=== PATIENT | female | born 1935 | race Caucasian/White ===

== ENCOUNTER 2019-06-18 17:17 | Emergency (ER) | payer OTHER, MEDICAID ==
[~2019-06-18] VITALS: Ht 157.5 cm; Wt 73.5 kg
[2019-06-18 17:20] VITALS: BP_SYST 131
[2019-06-18] MEDS ORDERED: HALOPERIDOL LACTATE 5 MG/ML VIAL IM ONE ×2 (17:45→21:30)
[2019-06-18] MEDS ORDERED: LORazepam 2 MG/ML VIAL IM ONE (17:45)
[2019-06-18] MEDS ORDERED: DIPHENHYDRAMINE INJ 50 MG/ML VIAL IM ONE (17:45)
[2019-06-18 22:19] LABS: BASOPHILS # (AUTO) 0.1 K/uL (0.0-0.2); BASOPHILS % (AUTO) 0.8 % (0.0-2.0); EOSINOPHILS # (AUTO) 0.2 K/uL (0.0-0.4); EOSINOPHILS % (AUTO) 1.9 % (0.0-4.0); HEMATOCRIT 32.3 % (36-48); HEMOGLOBIN 11.2 g/dL (12.0-16.0); LYMPHOCYTES # (AUTO) 2.6 K/uL (1.0-5.5); LYMPHOCYTES % (AUTO) 31.6 % (20.5-51.5); MEAN CORPUSCULAR HEMOGLOBIN 32 pg (27-31); MEAN CORPUSCULAR HGB CONC 35 % (32-36); MEAN CORPUSCULAR VOLUME 92 fL (79.0-98.0); MONOCYTES # (AUTO) 0.8 K/uL (0.0-1.0); MONOCYTES % (AUTO) 9.9 % (1.7-9.3); NEUTROPHILS # (AUTO) 4.7 K/uL (1.8-7.7); NEUTROPHILS % (AUTO) 55.8 % (40.0-70.0); PLATELET COUNT (AUTO) 223 K/uL (130-430); RED CELL DISTRIBUTION WIDTH 13.2 % (9.0-15.0); WHITE BLOOD COUNT (AUTO) 8.4 K/uL (4.8-10.8)
[2019-06-18 22:35] LABS: ANION GAP 9 (5-15); CHLORIDE 98 mmol/L (98-107); GLUCOSE 187 mg/dL (70-99); POTASSIUM 3.8 mmol/L (3.5-5.1); SODIUM SERUM 132 mmol/L (136-145); UREA NITROGEN, BLOOD 14 mg/dL (8-21)
[2019-06-18 22:41] LABS: ALANINE AMINOTRANSFERASE 12 U/L (12-78); ALBUMIN 3.5 g/dL (3.4-4.8); ASPARTATE AMINOTRANSFERASE 19 U/L (10-37); TOTAL BILIRUBIN 0.5 mg/dL (0.0-1.0)
[2019-06-18 23:40] VITALS: BP_SYST 122
[2019-06-19 15:20] LABS: CHOLESTEROL 167 mg/dL (<200); HDL CHOLESTEROL 42 mg/dL (>55); LDL CHOLESTEROL 107 mg/dL (<100); TRIGLYCERIDES 72 mg/dL (30-150)
== END 2019-06-18 23:41 ==
LOC: SED 17:17
DX: F29 Unspecified psychosis not due to a substance or known physiological condition (principal); F41.9 Anxiety disorder, unspecified; R45.6 Violent behavior; R03.0 Elevated blood-pressure reading, without diagnosis of hypertension; E11.9 Type 2 diabetes mellitus without complications; F03.90 Unspecified dementia, unspecified severity, without behavioral disturbance, psychotic disturbance, mood disturbance, and anxiety; E03.9 Hypothyroidism, unspecified; K21.9 Gastro-esophageal reflux disease without esophagitis
CPT/HCPCS: 36415; 80053; 80061; 83036; 85025; 96372; 99285; J1200; J1630; J2060

== ENCOUNTER 2021-11-27 19:22 | Inpatient (IN) | payer OTHER, MEDICAID, SELFPAY ==
[~2021-11-27] VITALS: Ht 157.5 cm; Wt 67.1 kg
[2021-11-27 19:26] VITALS: BP_SYST 107
[2021-11-27] MEDS ORDERED: NACL 0.9% 1,000 ML IV ONE (19:45)
[2021-11-27 20:10] LABS: EOSINOPHILS # (AUTO) 0.3 K/uL (0.0-0.4); HEMOGLOBIN 9.6 g/dL (12.0-16.0)
[2021-11-27 20:14] LABS: BASOPHILS % (AUTO) 0.5 % (0.0-2.0); EOSINOPHILS % (AUTO) 2.7 % (0.0-4.0); HEMATOCRIT 27.9 % (36-48); LYMPHOCYTES # (AUTO) 2.5 K/uL (1.0-5.5); LYMPHOCYTES % (AUTO) 24.3 % (20.5-51.5); MEAN CORPUSCULAR HEMOGLOBIN 32 pg (27-31); MEAN CORPUSCULAR HGB CONC 34 % (32-36); MEAN CORPUSCULAR VOLUME 92 fL (79.0-98.0); NEUTROPHILS # (AUTO) 6.5 K/uL (1.8-7.7); NEUTROPHILS % (AUTO) 62.5 % (40.0-70.0); PLATELET COUNT (AUTO) 338 K/uL (130-430); RED BLOOD CELL COUNT(AUTO) 3.03 MIL/uL (4.2-6.2); RED CELL DISTRIBUTION WIDTH 14.4 % (9.0-15.0); WHITE BLOOD COUNT (AUTO) 10.4 K/uL (4.8-10.8)
[2021-11-27 20:16] LABS: ANION GAP 14 (5-15); CALCIUM 8.3 mg/dL (8.4-11.0); CHLORIDE 104 mmol/L (98-107); GLUCOSE 238 mg/dL (70-99); POTASSIUM 4.2 mmol/L (3.5-5.1); SODIUM SERUM 135 mmol/L (136-145); UREA NITROGEN, BLOOD 37 mg/dL (8-21)
[2021-11-27 20:19] LABS: BILIRUBIN,URINE NEGATIVE (NEGATIVE); BLOOD, URINE 1+ (NEGATIVE); CLARITY/URINE CLOUDY (CLEAR); COLOR,URINE YELLOW (YELLOW); GLUCOSE,URINE NEGATIVE (NEGATIVE); KETONES,URINE NEGATIVE (NEGATIVE); LEUKOCYTE ESTERASE ,URINE 3+ (NEGATIVE); NITRITE, URINE POSITIVE (NEGATIVE); PH,URINE 7.5 (5.0-8.0); PROTEIN URINE 2+ (NEGATIVE); UROBILINOGEN,URINE 0.2 (0.2-1.0)
[2021-11-27 20:25] LABS: ALANINE AMINOTRANSFERASE 18 U/L (12-78); ALBUMIN 2.8 g/dL (3.4-4.8); ASPARTATE AMINOTRANSFERASE 15 U/L (10-37); TOTAL BILIRUBIN 0.1 mg/dL (0.0-1.0)
[2021-11-27 20:28] LABS: BACTERIA,URINE MANY /HPF (None Seen); WBC,URINE >100 /HPF (0-3)
[2021-11-27 20:29] LABS: MUCUS,URINE 2+ /LPF (None Seen)
[2021-11-27] MEDS ORDERED: cefTRIAXone 1 GM IVPB PREMIX 50 ML IV ONE (21:00)
[2021-11-27] MEDS: NACL 0.9% 1,000 ML IV SCH (22:43)
[2021-11-28] VITALS (23 sets, daily range): BP systolic 79–133
[2021-11-28] MEDS: levalbuterol HCL 0.63 MG/3 ML VIAL.NEB INH SCH ×4 (00:13→19:40)
[2021-11-28] MEDS ORDERED: PIPERACILLIN/TAZOBACTAM 2.25 GM VIAL IV ONE ×2 (01:15→05:43)
[2021-11-28] MEDS: PIPERACILLIN/TAZO 2.25G/DEX-IS 50 ML IV SCH ×4 (01:19→17:22)
[2021-11-28] MEDS ORDERED: NACL 0.9% 1,000 ML IV ONE ×2 (01:45→08:00)
[2021-11-28] MEDS: NACL 0.9% 1,000 ML IV SCH ×2 (03:34→08:49)
[2021-11-28] MEDS: INSULIN REGULAR, HUMAN 100 UNITS/ML, 10 ML VIAL (humuLIN R) SUBCUT PRN ×2 (06:10→17:23)
[2021-11-28 06:22] LABS: BASOPHILS % (AUTO) 0.4 % (0.0-2.0); EOSINOPHILS % (AUTO) 0.3 % (0.0-4.0); HEMATOCRIT 23.2 % (36-48); HEMOGLOBIN 7.8 g/dL (12.0-16.0); LYMPHOCYTES # (AUTO) 0.8 K/uL (1.0-5.5); LYMPHOCYTES % (AUTO) 9.5 % (20.5-51.5); MEAN CORPUSCULAR HEMOGLOBIN 32 pg (27-31); MEAN CORPUSCULAR HGB CONC 34 % (32-36); MEAN CORPUSCULAR VOLUME 94 fL (79.0-98.0); MONOCYTES # (AUTO) 0.8 K/uL (0.0-1.0); MONOCYTES % (AUTO) 8.7 % (1.7-9.3); NEUTROPHILS # (AUTO) 7.1 K/uL (1.8-7.7); NEUTROPHILS % (AUTO) 81.1 % (40.0-70.0); PLATELET COUNT (AUTO) 250 K/uL (130-430); RED BLOOD CELL COUNT(AUTO) 2.47 MIL/uL (4.2-6.2); RED CELL DISTRIBUTION WIDTH 14.8 % (9.0-15.0); WHITE BLOOD COUNT (AUTO) 8.7 K/uL (4.8-10.8)
[2021-11-28 06:53] LABS: ALANINE AMINOTRANSFERASE 19 U/L (12-78); ALBUMIN 2.3 g/dL (3.4-4.8); ANION GAP 16 (5-15); ASPARTATE AMINOTRANSFERASE 19 U/L (10-37); CALCIUM 7.6 mg/dL (8.4-11.0); CHLORIDE 106 mmol/L (98-107); CREATININE 1.74 mg/dL (0.55-1.30); GLUCOSE 268 mg/dL (70-99); POTASSIUM 4.2 mmol/L (3.5-5.1); SODIUM SERUM 138 mmol/L (136-145); TOTAL BILIRUBIN 0.3 mg/dL (0.0-1.0); UREA NITROGEN, BLOOD 41 mg/dL (8-21)
[2021-11-28] MEDS ORDERED: NACL 0.9% 500 ML IV ONE (07:22)
[2021-11-28] MEDS ORDERED: NACL 0.9% 1,000 ML IV SCH ×2 (07:30)
[2021-11-28] MEDS ORDERED: NOREPINEPHRINE BITARTRATE 16 MG in NS 218 ML IV PRN (07:30)
[2021-11-28] MEDS ORDERED: NS 500 ML IV ONE (08:00)
[2021-11-28] MEDS ORDERED: NOREPINEPHRINE BITARTRATE 8 MG in D5W 242 ML IV PRN (08:00)
[2021-11-28] MEDS: ALBUMIN HUMAN 25% 100 ML IV SCH ×3 (08:28→15:59)
[2021-11-28 09:12] LABS: BILIRUBIN,URINE NEGATIVE (NEGATIVE); BLOOD, URINE 1+ (NEGATIVE); CLARITY/URINE SL CLOUDY (CLEAR); COLOR,URINE YELLOW (YELLOW); GLUCOSE,URINE NEGATIVE (NEGATIVE); KETONES,URINE TRACE (NEGATIVE); LEUKOCYTE ESTERASE ,URINE 3+ (NEGATIVE); NITRITE, URINE NEGATIVE (NEGATIVE); PH,URINE 5.5 (5.0-8.0); PROTEIN URINE 2+ (NEGATIVE)
[2021-11-28 09:22] LABS: FREE T4 (FREE THYROXINE) 1.2 ng/dl (0.8-1.5); THYROID STIMULATING HORMONE 2.5 uIu/mL (0.36-3.74)
[2021-11-28] MEDS: LEVOTHYROXINE SODIUM 0.1 MG VIAL IVP SCH (09:30)
[2021-11-28 10:34] LABS: BACTERIA,URINE MODERATE /HPF (None Seen); MUCUS,URINE 1+ /LPF (None Seen); WBC,URINE >100 /HPF (0-3)
[2021-11-28] MEDS ORDERED: PANTOPRAZOLE SODIUM 40 MG/VIAL (PROTONIX) IVP ONE (15:45)
[2021-11-28] MEDS: D5NS 1,000 ML IV SCH ×2 (16:00→22:05)
[2021-11-28] MEDS ORDERED: metroNIDAZOLE 500 mg/NS 100 ML IV SCH (22:00)
[2021-11-29] VITALS (24 sets, daily range): BP systolic 104–160
[2021-11-29] MEDS: PIPERACILLIN/TAZO 2.25G/DEX-IS 50 ML IV SCH ×4 (00:04→17:09)
[2021-11-29] MEDS: INSULIN REGULAR, HUMAN 100 UNITS/ML, 10 ML VIAL (humuLIN R) SUBCUT PRN ×4 (00:28→17:11)
[2021-11-29] MEDS: levalbuterol HCL 0.63 MG/3 ML VIAL.NEB INH SCH ×4 (01:00→20:06)
[2021-11-29] MEDS: D5NS 1,000 ML IV SCH ×2 (04:47→17:09)
[2021-11-29 07:54] LABS: BASOPHILS # (AUTO) 0.1 K/uL (0.0-0.2); BASOPHILS % (AUTO) 0.3 % (0.0-2.0); EOSINOPHILS # (AUTO) 0.1 K/uL (0.0-0.4); LYMPHOCYTES # (AUTO) 0.9 K/uL (1.0-5.5); MEAN CORPUSCULAR HEMOGLOBIN 31 pg (27-31); MEAN CORPUSCULAR HGB CONC 33 % (32-36); MEAN CORPUSCULAR VOLUME 94 fL (79.0-98.0); MONOCYTES # (AUTO) 0.6 K/uL (0.0-1.0); MONOCYTES % (AUTO) 3.6 % (1.7-9.3); NEUTROPHILS % (AUTO) 89.1 % (40.0-70.0); PLATELET COUNT (AUTO) 209 K/uL (130-430); RED BLOOD CELL COUNT(AUTO) 2.05 MIL/uL (4.2-6.2); RED CELL DISTRIBUTION WIDTH 15.5 % (9.0-15.0); WHITE BLOOD COUNT (AUTO) 15.7 K/uL (4.8-10.8)
[2021-11-29 08:03] LABS: ALANINE AMINOTRANSFERASE 58 U/L (12-78); ALBUMIN 2.8 g/dL (3.4-4.8); ANION GAP 15 (5-15); ASPARTATE AMINOTRANSFERASE 62 U/L (10-37); CHLORIDE 113 mmol/L (98-107); CREATININE 1.31 mg/dL (0.55-1.30); GLUCOSE 317 mg/dL (70-99); POTASSIUM 3.8 mmol/L (3.5-5.1); SODIUM SERUM 141 mmol/L (136-145); THYROID STIMULATING HORMONE 1.19 uIu/mL (0.36-3.74); TOTAL BILIRUBIN 0.2 mg/dL (0.0-1.0); UREA NITROGEN, BLOOD 36 mg/dL (8-21)
[2021-11-29 09:08] LABS: HEMOGLOBIN 6.4 g/dL (12.0-16.0)
[2021-11-29 09:09] LABS: HEMATOCRIT 19.4 % (36-48)
[2021-11-29] MEDS: PANTOPRAZOLE SODIUM 40 MG/VIAL (PROTONIX) IVP SCH (09:19)
[2021-11-29] MEDS: METHYLPREDNISOLONE SOD SUCC 40 MG/ML VIAL IVP SCH ×2 (09:19→20:54)
[2021-11-29] MEDS: LEVOTHYROXINE SODIUM 0.1 MG VIAL IVP SCH (09:22)
[2021-11-29] MEDS: FLUCONAZOLE 100 mg/ NS 50 ML IV SCH (12:25)
[2021-11-29] MEDS: MUPIROCIN 2% TOPICAL OINTMENT 22 GM NS SCH (20:55)
[2021-11-30] VITALS (22 sets, daily range): BP systolic 121–168
[2021-11-30] MEDS: PIPERACILLIN/TAZO 2.25G/DEX-IS 50 ML IV SCH ×4 (00:03→17:26)
[2021-11-30] MEDS: INSULIN REGULAR, HUMAN 100 UNITS/ML, 10 ML VIAL (humuLIN R) SUBCUT PRN ×4 (00:12→17:29)
[2021-11-30] MEDS: D5NS 1,000 ML IV SCH ×2 (05:35→13:45)
[2021-11-30 06:14] LABS: BASOPHILS % (AUTO) 0.1 % (0.0-2.0); HEMATOCRIT 31.9 % (36-48); HEMOGLOBIN 10.7 g/dL (12.0-16.0); LYMPHOCYTES # (AUTO) 0.7 K/uL (1.0-5.5); LYMPHOCYTES % (AUTO) 6.7 % (20.5-51.5); MEAN CORPUSCULAR HEMOGLOBIN 31 pg (27-31); MEAN CORPUSCULAR HGB CONC 34 % (32-36); MEAN CORPUSCULAR VOLUME 92 fL (79.0-98.0); MONOCYTES # (AUTO) 0.4 K/uL (0.0-1.0); MONOCYTES % (AUTO) 3.8 % (1.7-9.3); NEUTROPHILS # (AUTO) 9.8 K/uL (1.8-7.7); NEUTROPHILS % (AUTO) 89.4 % (40.0-70.0); PLATELET COUNT (AUTO) 197 K/uL (130-430); RED BLOOD CELL COUNT(AUTO) 3.48 MIL/uL (4.2-6.2); RED CELL DISTRIBUTION WIDTH 16.7 % (9.0-15.0)
[2021-11-30] MEDS: levalbuterol HCL 0.63 MG/3 ML VIAL.NEB INH SCH ×3 (07:13→20:04)
[2021-11-30] MEDS: MUPIROCIN 2% TOPICAL OINTMENT 22 GM NS SCH ×2 (08:03→20:42)
[2021-11-30 08:20] LABS: WHITE BLOOD COUNT (AUTO) 10.9 K/uL (4.8-10.8)
[2021-11-30 08:25] LABS: ANION GAP 15 (5-15); CALCIUM 7.9 mg/dL (8.4-11.0); CHLORIDE 115 mmol/L (98-107); CREATININE 1.36 mg/dL (0.55-1.30); GLUCOSE 346 mg/dL (70-99); PHOSPHORUS 2.7 mg/dL (2.7-4.5); POTASSIUM 3.7 mmol/L (3.5-5.1); SODIUM SERUM 141 mmol/L (136-145); UREA NITROGEN, BLOOD 37 mg/dL (8-21)
[2021-11-30] MEDS: METHYLPREDNISOLONE SOD SUCC 40 MG/ML VIAL IVP SCH ×2 (08:41→20:42)
[2021-11-30] MEDS: LEVOTHYROXINE SODIUM 0.1 MG VIAL IVP SCH (08:41)
[2021-11-30] MEDS: PANTOPRAZOLE SODIUM 40 MG/VIAL (PROTONIX) IVP SCH (08:41)
[2021-11-30] MEDS: FLUCONAZOLE 100 mg/ NS 50 ML IV SCH (11:00)
[2021-11-30] MEDS: NACL 0.9% 1,000 ML IV SCH (18:51)
[2021-11-30] MEDS: INSULIN GLARGINE 100 UNITS/ML 10 ML VIAL SUBCUT SCH (22:03)
[2021-12-01] VITALS (25 sets, daily range): BP systolic 127–178
[2021-12-01] MEDS: PIPERACILLIN/TAZO 2.25G/DEX-IS 50 ML IV SCH ×5 (00:40→23:48)
[2021-12-01] MEDS: INSULIN REGULAR, HUMAN 100 UNITS/ML, 10 ML VIAL (humuLIN R) SUBCUT PRN ×4 (06:33→23:53)
[2021-12-01 07:26] LABS: BASOPHILS % (AUTO) 0.2 % (0.0-2.0); EOSINOPHILS # (AUTO) 0.1 K/uL (0.0-0.4); EOSINOPHILS % (AUTO) 0.9 % (0.0-4.0); HEMATOCRIT 31.8 % (36-48); HEMOGLOBIN 10.7 g/dL (12.0-16.0); LYMPHOCYTES # (AUTO) 0.7 K/uL (1.0-5.5); LYMPHOCYTES % (AUTO) 5.4 % (20.5-51.5); MEAN CORPUSCULAR HEMOGLOBIN 31 pg (27-31); MEAN CORPUSCULAR HGB CONC 34 % (32-36); MEAN CORPUSCULAR VOLUME 92 fL (79.0-98.0); MONOCYTES # (AUTO) 0.3 K/uL (0.0-1.0); MONOCYTES % (AUTO) 2.4 % (1.7-9.3); NEUTROPHILS # (AUTO) 12.2 K/uL (1.8-7.7); NEUTROPHILS % (AUTO) 91.1 % (40.0-70.0); PLATELET COUNT (AUTO) 243 K/uL (130-430); RED BLOOD CELL COUNT(AUTO) 3.48 MIL/uL (4.2-6.2); RED CELL DISTRIBUTION WIDTH 16.7 % (9.0-15.0); WHITE BLOOD COUNT (AUTO) 13.4 K/uL (4.8-10.8)
[2021-12-01] MEDS: levalbuterol HCL 0.63 MG/3 ML VIAL.NEB INH SCH ×4 (07:37→23:57)
[2021-12-01] MEDS: NACL 0.9% 1,000 ML IV SCH ×2 (07:39→20:38)
[2021-12-01 07:42] LABS: ANION GAP 20 (5-15); CALCIUM 8.4 mg/dL (8.4-11.0); CHLORIDE 118 mmol/L (98-107); CREATININE 1.27 mg/dL (0.55-1.30); GLUCOSE 213 mg/dL (70-99); POTASSIUM 3.7 mmol/L (3.5-5.1); SODIUM SERUM 148 mmol/L (136-145); UREA NITROGEN, BLOOD 43 mg/dL (8-21)
[2021-12-01] MEDS: LEVOTHYROXINE SODIUM 0.1 MG VIAL IVP SCH (08:31)
[2021-12-01] MEDS: METHYLPREDNISOLONE SOD SUCC 40 MG/ML VIAL IVP SCH ×2 (08:32→21:50)
[2021-12-01] MEDS: PANTOPRAZOLE SODIUM 40 MG/VIAL (PROTONIX) IVP SCH (08:32)
[2021-12-01] MEDS: MUPIROCIN 2% TOPICAL OINTMENT 22 GM NS SCH ×2 (08:58→20:38)
[2021-12-01] MEDS ORDERED: hydrALAZINE HCL 25 MG TABLET PO ONE (10:00)
[2021-12-01] MEDS ORDERED: FUROSEMIDE 20 MG/2 ML VIAL IVP ONE (10:00)
[2021-12-01] MEDS: FLUCONAZOLE 100 mg/ NS 50 ML IV SCH (10:53)
[2021-12-01] MEDS ORDERED: METOPROLOL SUCCINATE 25 MG TAB.SR.24H (TOPROL XL) PO ONE (13:45)
[2021-12-01] MEDS ORDERED: LORazepam 2 MG/ML VIAL IVP ONE (14:15)
[2021-12-01] MEDS ORDERED: BALSAM PERU/CASTOR OIL 56.7 GM OINT...G. TP ONE (18:30)
[2021-12-01] MEDS: hydrALAZINE HCL 25 MG TABLET PO SCH (20:36)
[2021-12-01] MEDS: INSULIN GLARGINE 100 UNITS/ML 10 ML VIAL SUBCUT SCH (20:37)
[2021-12-02] VITALS (22 sets, daily range): BP systolic 117–156
[2021-12-02] MEDS: METHYLPREDNISOLONE SOD SUCC 40 MG/ML VIAL IVP SCH ×3 (05:44→21:34)
[2021-12-02] MEDS: PIPERACILLIN/TAZO 2.25G/DEX-IS 50 ML IV SCH ×3 (05:45→17:38)
[2021-12-02] MEDS: INSULIN REGULAR, HUMAN 100 UNITS/ML, 10 ML VIAL (humuLIN R) SUBCUT PRN ×3 (05:58→17:52)
[2021-12-02 06:04] LABS: BASOPHILS % (AUTO) 0.1 % (0.0-2.0); EOSINOPHILS % (AUTO) 0.1 % (0.0-4.0); HEMATOCRIT 31.6 % (36-48); HEMOGLOBIN 10.6 g/dL (12.0-16.0); LYMPHOCYTES # (AUTO) 0.8 K/uL (1.0-5.5); MEAN CORPUSCULAR HEMOGLOBIN 31 pg (27-31); MEAN CORPUSCULAR HGB CONC 34 % (32-36); MEAN CORPUSCULAR VOLUME 92 fL (79.0-98.0); MONOCYTES # (AUTO) 0.6 K/uL (0.0-1.0); MONOCYTES % (AUTO) 6.6 % (1.7-9.3); NEUTROPHILS # (AUTO) 7.8 K/uL (1.8-7.7); NEUTROPHILS % (AUTO) 84.2 % (40.0-70.0); PLATELET COUNT (AUTO) 223 K/uL (130-430); RED BLOOD CELL COUNT(AUTO) 3.45 MIL/uL (4.2-6.2); RED CELL DISTRIBUTION WIDTH 16.5 % (9.0-15.0); WHITE BLOOD COUNT (AUTO) 9.3 K/uL (4.8-10.8)
[2021-12-02] MEDS: levalbuterol HCL 0.63 MG/3 ML VIAL.NEB INH SCH ×4 (07:11→23:23)
[2021-12-02 07:12] LABS: ANION GAP 15 (5-15); CHLORIDE 117 mmol/L (98-107); GLUCOSE 246 mg/dL (70-99); POTASSIUM 3.5 mmol/L (3.5-5.1); SODIUM SERUM 144 mmol/L (136-145); UREA NITROGEN, BLOOD 53 mg/dL (8-21)
[2021-12-02] MEDS: FUROSEMIDE 20 MG/2 ML VIAL IVP SCH (08:28)
[2021-12-02] MEDS: LEVOTHYROXINE SODIUM 0.1 MG VIAL IVP SCH (08:29)
[2021-12-02] MEDS: MUPIROCIN 2% TOPICAL OINTMENT 22 GM NS SCH ×2 (08:30→20:32)
[2021-12-02] MEDS: hydrALAZINE HCL 25 MG TABLET PO SCH ×2 (08:30→20:31)
[2021-12-02] MEDS: BALSAM PERU/CASTOR OIL 56.7 GM OINT...G. TP SCH (08:31)
[2021-12-02] MEDS ORDERED: DILTIAZEM HCL 60 MG TABLET PO ONE (09:15)
[2021-12-02] MEDS: METOPROLOL SUCCINATE 25 MG TAB.SR.24H (TOPROL XL) PO SCH (09:39)
[2021-12-02] MEDS: PANTOPRAZOLE SODIUM 40 MG/VIAL (PROTONIX) IVP SCH (09:41)
[2021-12-02] MEDS: NACL 0.9% 1,000 ML IV SCH ×2 (10:00→12:52)
[2021-12-02] MEDS ORDERED: POTASSIUM CHLORIDE 20 MEQ/PKT PACKET PO ONE (10:15)
[2021-12-02] MEDS ORDERED: SODIUM BICARBONATE 8.4% JECT 50 MEQ/50 ML SYRINGE IVP ONE (10:15)
[2021-12-02] MEDS: FLUCONAZOLE 100 mg/ NS 50 ML IV SCH (11:25)
[2021-12-02] MEDS: DILTIAZEM HCL 60 MG TABLET PO SCH ×2 (15:31→21:34)
[2021-12-02] MEDS: INSULIN GLARGINE 100 UNITS/ML 10 ML VIAL SUBCUT SCH (20:33)
[2021-12-03] VITALS (23 sets, daily range): BP systolic 113–155
[2021-12-03] MEDS: PIPERACILLIN/TAZO 2.25G/DEX-IS 50 ML IV SCH ×4 (00:06→18:08)
[2021-12-03] MEDS: INSULIN REGULAR, HUMAN 100 UNITS/ML, 10 ML VIAL (humuLIN R) SUBCUT PRN ×5 (00:08→20:45)
[2021-12-03] MEDS: NACL 0.9% 1,000 ML IV SCH ×2 (00:18→18:09)
[2021-12-03] MEDS: METHYLPREDNISOLONE SOD SUCC 40 MG/ML VIAL IVP SCH ×3 (05:45→21:48)
[2021-12-03] MEDS: DILTIAZEM HCL 60 MG TABLET PO SCH ×3 (05:46→21:49)
[2021-12-03] MEDS: levalbuterol HCL 0.63 MG/3 ML VIAL.NEB INH SCH ×4 (07:25→18:00)
[2021-12-03 08:00] LABS: ANION GAP 17 (5-15); CHLORIDE 119 mmol/L (98-107); GLUCOSE 318 mg/dL (70-99); SODIUM SERUM 151 mmol/L (136-145)
[2021-12-03 08:01] LABS: CREATININE 1.53 mg/dL (0.55-1.30); UREA NITROGEN, BLOOD 52 mg/dL (8-21)
[2021-12-03 08:26] LABS: HEMATOCRIT 32.5 % (36-48); HEMOGLOBIN 10.9 g/dL (12.0-16.0); MEAN CORPUSCULAR HEMOGLOBIN 31 pg (27-31); MEAN CORPUSCULAR HGB CONC 33 % (32-36); MEAN CORPUSCULAR VOLUME 92 fL (79.0-98.0); PLATELET COUNT (AUTO) 196 K/uL (130-430); RED BLOOD CELL COUNT(AUTO) 3.54 MIL/uL (4.2-6.2); RED CELL DISTRIBUTION WIDTH 16.8 % (9.0-15.0); WHITE BLOOD COUNT (AUTO) 6.7 K/uL (4.8-10.8)
[2021-12-03 08:27] LABS: LYMPHOCYTES # (AUTO) 0.7 K/uL (1.0-5.5); LYMPHOCYTES % (AUTO) 9.8 % (20.5-51.5); MONOCYTES # (AUTO) 0.6 K/uL (0.0-1.0); MONOCYTES % (AUTO) 8.8 % (1.7-9.3); NEUTROPHILS # (AUTO) 5.5 K/uL (1.8-7.7); NEUTROPHILS % (AUTO) 81.4 % (40.0-70.0)
[2021-12-03] MEDS: FUROSEMIDE 20 MG/2 ML VIAL IVP SCH (08:29)
[2021-12-03] MEDS: PANTOPRAZOLE SODIUM 40 MG/VIAL (PROTONIX) IVP SCH (08:29)
[2021-12-03] MEDS: LEVOTHYROXINE SODIUM 0.1 MG VIAL IVP SCH (08:35)
[2021-12-03] MEDS: hydrALAZINE HCL 25 MG TABLET PO SCH ×2 (08:36→20:38)
[2021-12-03] MEDS: METOPROLOL SUCCINATE 25 MG TAB.SR.24H (TOPROL XL) PO SCH (08:36)
[2021-12-03] MEDS: BALSAM PERU/CASTOR OIL 56.7 GM OINT...G. TP SCH (08:37)
[2021-12-03] MEDS: MUPIROCIN 2% TOPICAL OINTMENT 22 GM NS SCH ×2 (08:37→20:37)
[2021-12-03] MEDS ORDERED: POTASSIUM CHLORIDE 20 MEQ/PKT PACKET PO ONE (10:30)
[2021-12-03] MEDS: FLUCONAZOLE 100 mg/ NS 50 ML IV SCH (11:08)
[2021-12-03] MEDS: INSULIN GLARGINE 100 UNITS/ML 10 ML VIAL SUBCUT SCH (21:47)
[2021-12-04] VITALS (25 sets, daily range): BP systolic 114–160
[2021-12-04] MEDS: PIPERACILLIN/TAZO 2.25G/DEX-IS 50 ML IV SCH ×5 (00:22→23:28)
[2021-12-04] MEDS: NACL 0.9% 1,000 ML IV SCH ×2 (02:00→14:06)
[2021-12-04] MEDS: METHYLPREDNISOLONE SOD SUCC 40 MG/ML VIAL IVP SCH ×3 (05:47→21:01)
[2021-12-04] MEDS: DILTIAZEM HCL 60 MG TABLET PO SCH ×3 (05:48→21:02)
[2021-12-04 07:49] LABS: BASOPHILS % (AUTO) 0.1 % (0.0-2.0); EOSINOPHILS % (AUTO) 0.1 % (0.0-4.0); HEMATOCRIT 32.8 % (36-48); HEMOGLOBIN 11.2 g/dL (12.0-16.0); LYMPHOCYTES # (AUTO) 0.9 K/uL (1.0-5.5); LYMPHOCYTES % (AUTO) 12.5 % (20.5-51.5); MEAN CORPUSCULAR HEMOGLOBIN 31 pg (27-31); MEAN CORPUSCULAR HGB CONC 34 % (32-36); MEAN CORPUSCULAR VOLUME 91 fL (79.0-98.0); MONOCYTES # (AUTO) 0.5 K/uL (0.0-1.0); MONOCYTES % (AUTO) 6.9 % (1.7-9.3); NEUTROPHILS # (AUTO) 6.1 K/uL (1.8-7.7); NEUTROPHILS % (AUTO) 80.4 % (40.0-70.0); PLATELET COUNT (AUTO) 206 K/uL (130-430); RED BLOOD CELL COUNT(AUTO) 3.62 MIL/uL (4.2-6.2); RED CELL DISTRIBUTION WIDTH 16.7 % (9.0-15.0); WHITE BLOOD COUNT (AUTO) 7.6 K/uL (4.8-10.8)
[2021-12-04] MEDS: INSULIN REGULAR, HUMAN 100 UNITS/ML, 10 ML VIAL (humuLIN R) SUBCUT PRN ×4 (07:49→20:35)
[2021-12-04] MEDS: hydrALAZINE HCL 25 MG TABLET PO SCH ×2 (08:16→20:33)
[2021-12-04] MEDS: METOPROLOL SUCCINATE 25 MG TAB.SR.24H (TOPROL XL) PO SCH (08:17)
[2021-12-04] MEDS: POTASSIUM CHLORIDE 20 MEQ/PKT PACKET PO SCH (08:17)
[2021-12-04] MEDS: PANTOPRAZOLE SODIUM 40 MG/VIAL (PROTONIX) IVP SCH (08:17)
[2021-12-04] MEDS: LEVOTHYROXINE SODIUM 0.1 MG VIAL IVP SCH (08:18)
[2021-12-04] MEDS: FUROSEMIDE 20 MG/2 ML VIAL IVP SCH (08:18)
[2021-12-04] MEDS: BALSAM PERU/CASTOR OIL 56.7 GM OINT...G. TP SCH (08:19)
[2021-12-04] MEDS: MUPIROCIN 2% TOPICAL OINTMENT 22 GM NS SCH (08:19)
[2021-12-04] MEDS: levalbuterol HCL 0.63 MG/3 ML VIAL.NEB INH SCH ×4 (08:23→19:40)
[2021-12-04 09:03] LABS: SODIUM SERUM 151 mmol/L (136-145)
[2021-12-04 09:04] LABS: ALANINE AMINOTRANSFERASE 33 U/L (12-78); ALBUMIN 2.6 g/dL (3.4-4.8); ANION GAP 15 (5-15); ASPARTATE AMINOTRANSFERASE 17 U/L (10-37); CALCIUM 7.8 mg/dL (8.4-11.0); CHLORIDE 118 mmol/L (98-107); CREATININE 1.31 mg/dL (0.55-1.30); GLUCOSE 187 mg/dL (70-99); TOTAL BILIRUBIN 0.5 mg/dL (0.0-1.0); UREA NITROGEN, BLOOD 47 mg/dL (8-21)
[2021-12-04 09:06] LABS: POTASSIUM 2.5 mmol/L (3.5-5.1)
[2021-12-04] MEDS ORDERED: KCL 40 mEq in 100 mL (PREMIX) 100 ML IV ONE ×2 (10:30→15:30)
[2021-12-04] MEDS: POTASSIUM CHLORIDE 20 mEq in 100 mL (PREMIX) 100 ML x 2 doses IV SCH ×4 (10:46→17:56)
[2021-12-04] MEDS: FLUCONAZOLE 100 mg/ NS 50 ML IV SCH (10:47)
[2021-12-04] MEDS: INSULIN GLARGINE 100 UNITS/ML 10 ML VIAL SUBCUT SCH (21:00)
[2021-12-05] VITALS (24 sets, daily range): BP systolic 128–158
[2021-12-05] MEDS: levalbuterol HCL 0.63 MG/3 ML VIAL.NEB INH SCH ×5 (01:27→23:24)
[2021-12-05] MEDS: NACL 0.9% 1,000 ML IV SCH ×2 (04:13→18:39)
[2021-12-05] MEDS: PIPERACILLIN/TAZO 2.25G/DEX-IS 50 ML IV SCH ×3 (05:44→18:37)
[2021-12-05] MEDS: METHYLPREDNISOLONE SOD SUCC 40 MG/ML VIAL IVP SCH ×2 (05:45→20:34)
[2021-12-05] MEDS: DILTIAZEM HCL 60 MG TABLET PO SCH ×3 (05:45→21:22)
[2021-12-05 07:05] LABS: ANION GAP 13 (5-15); CALCIUM 7.7 mg/dL (8.4-11.0); CHLORIDE 114 mmol/L (98-107); CREATININE 1.46 mg/dL (0.55-1.30); GLUCOSE 124 mg/dL (70-99); POTASSIUM 3.2 mmol/L (3.5-5.1); SODIUM SERUM 144 mmol/L (136-145); UREA NITROGEN, BLOOD 45 mg/dL (8-21)
[2021-12-05 07:12] LABS: BASOPHILS % (AUTO) 0.5 % (0.0-2.0); EOSINOPHILS % (AUTO) 0.1 % (0.0-4.0); HEMATOCRIT 34.3 % (36-48); HEMOGLOBIN 11.8 g/dL (12.0-16.0); LYMPHOCYTES # (AUTO) 0.8 K/uL (1.0-5.5); LYMPHOCYTES % (AUTO) 11.8 % (20.5-51.5); MEAN CORPUSCULAR HEMOGLOBIN 31 pg (27-31); MEAN CORPUSCULAR HGB CONC 34 % (32-36); MEAN CORPUSCULAR VOLUME 92 fL (79.0-98.0); MONOCYTES # (AUTO) 0.5 K/uL (0.0-1.0); NEUTROPHILS # (AUTO) 5.4 K/uL (1.8-7.7); NEUTROPHILS % (AUTO) 80.6 % (40.0-70.0); PLATELET COUNT (AUTO) 327 K/uL (130-430); RED BLOOD CELL COUNT(AUTO) 3.75 MIL/uL (4.2-6.2); RED CELL DISTRIBUTION WIDTH 16.9 % (9.0-15.0); WHITE BLOOD COUNT (AUTO) 6.7 K/uL (4.8-10.8)
[2021-12-05] MEDS: FUROSEMIDE 20 MG/2 ML VIAL IVP SCH (08:29)
[2021-12-05] MEDS: METOPROLOL SUCCINATE 25 MG TAB.SR.24H (TOPROL XL) PO SCH (08:30)
[2021-12-05] MEDS: POTASSIUM CHLORIDE 20 MEQ/PKT PACKET PO SCH (08:30)
[2021-12-05] MEDS: PANTOPRAZOLE SODIUM 40 MG/VIAL (PROTONIX) IVP SCH (08:30)
[2021-12-05] MEDS: LEVOTHYROXINE SODIUM 0.1 MG VIAL IVP SCH (08:30)
[2021-12-05] MEDS: BALSAM PERU/CASTOR OIL 56.7 GM OINT...G. TP SCH (08:31)
[2021-12-05] MEDS: hydrALAZINE HCL 25 MG TABLET PO SCH ×2 (08:31→20:35)
[2021-12-05] MEDS ORDERED: POTASSIUM CHLORIDE 20 MEQ/PKT PACKET PO ONE (10:30)
[2021-12-05] MEDS: FLUCONAZOLE 100 mg/ NS 50 ML IV SCH (11:01)
[2021-12-05] MEDS: INSULIN REGULAR, HUMAN 100 UNITS/ML, 10 ML VIAL (humuLIN R) SUBCUT PRN (11:46)
[2021-12-05] MEDS ORDERED: cefTRIAXone 1 GM in D5W 50 ML IV SCH (20:00)
[2021-12-05] MEDS: PANTOPRAZOLE SODIUM 40 MG TAB PO SCH (20:35)
[2021-12-05] MEDS: INSULIN GLARGINE 100 UNITS/ML 10 ML VIAL SUBCUT SCH (21:21)
[2021-12-06] VITALS (11 sets, daily range): BP systolic 133–177
[2021-12-06] MEDS: DILTIAZEM HCL 60 MG TABLET PO SCH (06:33)
[2021-12-06] MEDS: INSULIN REGULAR, HUMAN 100 UNITS/ML, 10 ML VIAL (humuLIN R) SUBCUT PRN (06:43)
[2021-12-06] MEDS ORDERED: LEVOTHYROXINE SODIUM 0.075 MG TABLET PO SCH (07:00)
[2021-12-06] MEDS: levalbuterol HCL 0.63 MG/3 ML VIAL.NEB INH SCH (07:11)
[2021-12-06 08:34] LABS: BASOPHILS % (AUTO) 0.6 % (0.0-2.0); HEMATOCRIT 36.5 % (36-48); HEMOGLOBIN 12.1 g/dL (12.0-16.0); LYMPHOCYTES # (AUTO) 0.5 K/uL (1.0-5.5); LYMPHOCYTES % (AUTO) 7.4 % (20.5-51.5); MEAN CORPUSCULAR HEMOGLOBIN 31 pg (27-31); MEAN CORPUSCULAR HGB CONC 33 % (32-36); MEAN CORPUSCULAR VOLUME 93 fL (79.0-98.0); MONOCYTES # (AUTO) 0.5 K/uL (0.0-1.0); MONOCYTES % (AUTO) 6.4 % (1.7-9.3); NEUTROPHILS # (AUTO) 6.2 K/uL (1.8-7.7); NEUTROPHILS % (AUTO) 85.6 % (40.0-70.0); PLATELET COUNT (AUTO) 210 K/uL (130-430); RED BLOOD CELL COUNT(AUTO) 3.93 MIL/uL (4.2-6.2); RED CELL DISTRIBUTION WIDTH 16.6 % (9.0-15.0); WHITE BLOOD COUNT (AUTO) 7.3 K/uL (4.8-10.8)
[2021-12-06] MEDS: POTASSIUM CHLORIDE 20 MEQ/PKT PACKET PO SCH (08:38)
[2021-12-06] MEDS: METOPROLOL SUCCINATE 25 MG TAB.SR.24H (TOPROL XL) PO SCH (08:38)
[2021-12-06] MEDS: PANTOPRAZOLE SODIUM 40 MG TAB PO SCH (08:38)
[2021-12-06] MEDS: hydrALAZINE HCL 25 MG TABLET PO SCH (08:38)
[2021-12-06] MEDS: FUROSEMIDE 20 MG/2 ML VIAL IVP SCH (08:39)
[2021-12-06 08:40] LABS: ANION GAP 13 (5-15); CALCIUM 7.9 mg/dL (8.4-11.0); CHLORIDE 115 mmol/L (98-107); CREATININE 1.57 mg/dL (0.55-1.30); GLUCOSE 292 mg/dL (70-99); POTASSIUM 3.3 mmol/L (3.5-5.1); SODIUM SERUM 146 mmol/L (136-145); UREA NITROGEN, BLOOD 47 mg/dL (8-21)
[2021-12-06] MEDS: METHYLPREDNISOLONE SOD SUCC 40 MG/ML VIAL IVP SCH (08:41)
== END 2021-12-06 11:04 | DRG 871 ==
LOC: SED 19:22 → STU 22:22 → SIC 11-28 01:01
PROVIDERS: ADMIT Family Medicine; ATTEND Family Medicine
PROC: 05HY33Z Insertion of Infusion Device into Upper Vein, Percutaneous Approach (ICD-10-PCS; 2021-11-28)
PROC: B54MZZA Ultrasonography of Right Upper Extremity Veins, Guidance (ICD-10-PCS; 2021-11-28)
PROC: 30233N1 Transfusion of Nonautologous Red Blood Cells into Peripheral Vein, Percutaneous Approach (ICD-10-PCS; principal; 2021-11-29)
PROC: 30233N1 Transfusion of Nonautologous Red Blood Cells into Peripheral Vein, Percutaneous Approach (ICD-10-PCS; 2021-11-29)
DX: A41.9 Sepsis, unspecified organism (principal); L89.154 Pressure ulcer of sacral region, stage 4; J69.0 Pneumonitis due to inhalation of food and vomit; R65.21 Severe sepsis with septic shock; J96.01 Acute respiratory failure with hypoxia; E46 Unspecified protein-calorie malnutrition; N39.0 Urinary tract infection, site not specified; I69.354 Hemiplegia and hemiparesis following cerebral infarction affecting left non-dominant side; D64.9 Anemia, unspecified; E03.9 Hypothyroidism, unspecified; E11.40 Type 2 diabetes mellitus with diabetic neuropathy, unspecified; K21.9 Gastro-esophageal reflux disease without esophagitis; F03.90 Unspecified dementia, unspecified severity, without behavioral disturbance, psychotic disturbance, mood disturbance, and anxiety; I10 Essential (primary) hypertension; Z20.822 Contact with and (suspected) exposure to COVID-19; B96.1 Klebsiella pneumoniae [K. pneumoniae] as the cause of diseases classified elsewhere; Z93.1 Gastrostomy status; Z87.440 Personal history of urinary (tract) infections; Z74.01 Bed confinement status; Z68.27 Body mass index [BMI] 27.0-27.9, adult
CPT/HCPCS: 36415; 36600; 71045; 80048; 80053; 81000; 82272; 82803-TC; 82962; 83605; 83735; 83880; 84100; 84132; 84439; 84443; 84484; 85025; 86886; 86900; 86901; 86920; 87040; 87081; 87086; 92610-GN; 93005; 93306; 94640; 94760; 96374; 99285; C9113; G0378; J0696; J1030; J1450; J1815; J1940; J2060; J2543; J3480; J3490; J7060; J7614; P9021

== ENCOUNTER 2022-06-04 09:51 | Inpatient (IN) | payer OTHER, MEDICAID ==
[~2022-06-04] VITALS: Ht 154.9 cm; Wt 61.2 kg
[2022-06-04 09:59] VITALS: BP_SYST 132
--- NOTE | 2022-06-04 10:00 | NUR ---
Placed in room 1 . Placed on youth nutritional monitor, blood pressure machine and pulse oximeter. To gown for exam. Side rails up. Report given to BOOGIE ARAUZ.
[2022-06-04] MEDS ORDERED: NACL 0.9% 1,000 ML IV ONE ×2 (10:15→10:45)
[2022-06-04 10:37] LABS: HEMATOCRIT 27.8 % (36-48); HEMOGLOBIN 9.3 g/dL (12.0-16.0); MEAN CORPUSCULAR HEMOGLOBIN 31 pg (27-31); MEAN CORPUSCULAR HGB CONC 33 % (32-36); MEAN CORPUSCULAR VOLUME 94 fL (79.0-98.0); PLATELET COUNT (AUTO) 282 K/uL (130-430); RED BLOOD CELL COUNT(AUTO) 2.96 MIL/uL (4.2-6.2); RED CELL DISTRIBUTION WIDTH 14.4 % (9.0-15.0)
[2022-06-04 10:41] LABS: WHITE BLOOD COUNT (AUTO) 24.7 K/uL (4.8-10.8)
--- NOTE | 2022-06-04 11:12 | NUR ---
BIBA FROM [facility] WITH C/C OF HYPOTENSION AND TACHYCARDIA. PT NONVERBAL, DOES NOT FOLLOW ANY COMMAND. OK WITH DR. ARAGON TO INSERT RÍOS, RECTAL TEMP REQUESTED BY DR. ARAGON (98.7). 24G TO LEFT WRIST NOTED. 20G IV ACCESS INSERTED TO RIGHT AC. BLOOD TAKEN AND SENT TO LAB. 16FR RÍOS CATH INSERTED USING ASEPTIC TECHNIQUE. URINE SENT TO LAB. COVID AND MRSA TAKEN AND SENT TO LAB. OPTIFOAM DRESSING APPLIED TO SACRUM. SACRAL AREA WITH HEALED WOUND. MID BACK WITH DEEP HEALED WOUND. LEFT HEEL WITH LATERAL DARK HARD WOUND. PLACED ON APPLE CHECKER WITH ST NOTED RATE 120'S WITH PVC'S AND OCCASIONAL BIGEMINY. 12L EKG DONE. DR. ARAGON SEEN AND ASSESSED PT. ONE LITER NS INFUSING FROM AMBULANCE, DR. ARAGON ORDERED ONE MORE LITER TO INFUSE. PT NOW OFF UNIT FOR CT.
[2022-06-04 11:18] LABS: INR 1.4 (0.8-1.2); PROTHROMBIN TIME 13.5 SECS (9.5-12.5)
[2022-06-04 11:33] LABS: ANION GAP 17 (5-15); CALCIUM 9.2 mg/dL (8.4-11.0); CHLORIDE 98 mmol/L (98-107); CREATININE 3.44 mg/dL (0.55-1.30); GLUCOSE 223 mg/dL (70-99); POTASSIUM 5.6 mmol/L (3.5-5.1); UREA NITROGEN, BLOOD 65 mg/dL (8-21)
[2022-06-04 11:39] LABS: ALANINE AMINOTRANSFERASE 56 U/L (12-78); ALBUMIN 2.4 g/dL (3.4-4.8); ASPARTATE AMINOTRANSFERASE 77 U/L (10-37); TOTAL BILIRUBIN 0.4 mg/dL (0.0-1.0)
--- NOTE | 2022-06-04 11:39 | NUR ---
NOTIFIED BY LAB OF LACTIC ACID 7.2. DR ARAGON MADE AWARE. PT CONT WITH BOLUS NS INFUSION.
[2022-06-04] MEDS ORDERED: PIPERACILLIN/TAZO 3.375 GM in NS 50 ML IV ONE (11:45)
[2022-06-04] MEDS ORDERED: VANCOMYCIN HCL 1,000 MG in NS 250 ML IV ONE (11:45)
[2022-06-04] MEDS ORDERED: VANCOMYCIN HCL 1000 MG/VIAL IV ONE (12:02)
[2022-06-04] MEDS ORDERED: PIPERACILLIN/TAZOBACTAM 3.375 GM/VIAL (ZOSYN) IV ONE (12:03)
[2022-06-04] MEDS ORDERED: FERR324T22 PO (12:32)
[2022-06-04] MEDS ORDERED: DOCU-144 PO (12:32)
[2022-06-04] MEDS ORDERED: METO25TA6 PO (12:32)
[2022-06-04] MEDS ORDERED: ASCO500T19 PO (12:32)
[2022-06-04] MEDS ORDERED: CHOL500052 PO (12:32)
[2022-06-04] MEDS ORDERED: DICL100G19 TP (12:32)
[2022-06-04] MEDS ORDERED: ASPI-524 PO (12:32)
[2022-06-04] MEDS ORDERED: ACET325C6 PO (12:32)
[2022-06-04] MEDS ORDERED: CRAN450C PO (12:32)
[2022-06-04] MEDS ORDERED: INSU100V9 SUBCUT (12:32)
[2022-06-04] MEDS ORDERED: MEGE400O5 PO (12:32)
[2022-06-04] MEDS ORDERED: FOLI-43 PO (12:32)
[2022-06-04] MEDS ORDERED: HYDR-4038 PO (12:32)
[2022-06-04] MEDS ORDERED: OMEP-268 PO (12:32)
[2022-06-04] MEDS ORDERED: AMIN30LI2 PO (12:32)
[2022-06-04] MEDS ORDERED: POTA20LI5 PO (12:32)
[2022-06-04] MEDS ORDERED: DILT60CA PO (12:32)
[2022-06-04] MEDS ORDERED: LEVO75CA5 PO (12:32)
[2022-06-04] MEDS ORDERED: MULT-1089 PO (12:32)
--- NOTE | 2022-06-04 12:36 | NUR ---
DR. ARAGON TO ADMIT PT. DR. SANCHEZ RECMikel'D REPORT BY DR. ARAGON. SPOKE WITH DR. SANCHEZ, NEW ORDERS RECEIVED AND PLACED CPOE.
[2022-06-04] MEDS ORDERED: SODIUM BICARBONATE 8.4% JECT 50 MEQ/50 ML SYRINGE IVP ONE (12:45)
[2022-06-04] MEDS ORDERED: DEXTROSE 50% JECT 50 ML DISP.SYRIN IVP ONE (12:45)
[2022-06-04] MEDS ORDERED: INSULIN REGULAR, HUMAN 10 UNITS/0.1 ML INJ IVP ONE (12:45)
[2022-06-04] MEDS ORDERED: SODIUM POLYSTYRENE SULFONATE 15 GM/60 ML UDBTL RC ONE (12:45)
[2022-06-04] MEDS ORDERED: D5NS 1,000 ML IV ONE (12:45)
[2022-06-04] MEDS ORDERED: CALCIUM GLUCONATE 1 GM in NS 100 ML IV ONE ×2 (12:45→17:00)
--- NOTE | 2022-06-04 13:54 | NUR ---
Admit bed requested Patient will be admitted to care of . Admitted to Tele unit. Diagnosis urosepsis Inpatient (Yes or No) y Observation (Yes or No) n Orientation concerns or request close to nursing station (Yes or No) n Covid Status neg On vent or bipap n Isolation requirements no Needs a sitter n From Home (Yes or if No enter name of facility) [facility] Requires Dialysis (Yes or No) n Med Rec Completed (Yes of No) y
[2022-06-04 14:11] LABS: BILIRUBIN,URINE 2+ (NEGATIVE); BLOOD, URINE NEGATIVE (NEGATIVE); CLARITY/URINE SL CLOUDY (CLEAR); GLUCOSE,URINE TRACE (NEGATIVE); KETONES,URINE 1+ (NEGATIVE); LEUKOCYTE ESTERASE ,URINE 3+ (NEGATIVE); NITRITE, URINE POSITIVE (NEGATIVE); PROTEIN URINE 1+ (NEGATIVE)
[2022-06-04 14:26] LABS: COLOR,URINE AMBER (YELLOW)
--- NOTE | 2022-06-04 14:38 | NUR ---
ADMIT REQUEST SENT, PENDING BED AVAILABILITY.
[2022-06-04 15:22] LABS: BACTERIA,URINE MANY /HPF (None Seen); RBC,URINE 0-3 /HPF (0-3); WBC,URINE 20-50 /HPF (0-3)
[2022-06-04 15:23] LABS: MUCUS,URINE None Seen /LPF (None Seen)
[2022-06-04 15:44] LABS: BAND % (MANUAL) 13 % (0-6); BASOPHILS % (MANUAL) 0 % (0-2); EOSINOPHILS % (MANUAL) 1 % (0-7); LYMPHOCYTES % (MANUAL) 4 % (20-46); METAMYELOCYTES % 2 % (0-0); MONOCYTES % (MANUAL) 3 % (0-11); MYELOCYTES % 1 % (0-0)
--- NOTE | 2022-06-04 16:00 | NUR ---
Patient will be admitted to care of . Admitted to TELEMETRY unit. Will go to room 120B. Belongings list completed. Complete and up to date summary report printed. SBAR report to be given at bedside with opportunity for questions.
--- NOTE | 2022-06-04 16:00 | NUR ---
Report received from BOOGIE Mosher for continuity of care. Patient stable condition. On telemetry. Vital signs stable. Patient is alert and oriented x1. Respiration even and unlabored. No shortness of breath. No c/o pain. Patient needs assistance turning every two hours.
--- NOTE | 2022-06-04 16:16 | NUR ---
jhony from [facility] called for update. she was informed patient was admitted with diagnosis of urosepsis
[2022-06-04] MEDS ORDERED: DEXTROSE 50% JECT 50 ML DISP.SYRIN ONE (17:00)
[2022-06-04] MEDS: INSULIN REGULAR, HUMAN 100 UNITS/ML, 10 ML VIAL (humuLIN R) SUBCUT PRN ×2 (17:02→20:44)
[2022-06-04 19:30] VITALS: BP_SYST 103
[2022-06-04 19:31] VITALS: BP_SYST 134
--- NOTE | 2022-06-04 19:46 | NUR ---
INITIAL NOTE AT INITIAL ASSESSMENT, PATIENT IS RESTING IN BED, STABLE, NO SIGNS OF RESPIRATORY DISTRESS. PATIENT SHOWS NO PAIN PER FLACC SCALE USED. PLAN OF CARE FOR THE EVENING IS COMMUNICATED WITH THE PATIENT, ALTHOUGH SHE IS AOX0, LETHARGIC, ONLY AROUSABLE TO PAINFUL STIMULI. SHE IS ON ROOM AIR WITH OXYGEN SATURATION AT 98%. BED IS LOCKED, ALARMED, AND AT THE LOWEST LEVEL. ASPIRATION, RESPIRATORY, FALL, AND SAFETY PRECAUTIONS WILL BE IN PLACE THROUGHOUT THE SHIFT. BLOOD PRESSURE WILL BE MONITORED CLOSELY THROUGHOUT THE SHIFT.
--- NOTE | 2022-06-04 20:02 | NUR ---
Report given to night shift manager RN for continuity of care. Patient in stable condition. No distress noted.
--- NOTE | 2022-06-04 20:06 | NUR ---
Dr. Simmons made rounds on patient. Updated Dr. Simmons on patient status.
[2022-06-04] MEDS ORDERED: ACETAMINOPHEN 325 MG TABLET PO PRN (20:15)
[2022-06-04] MEDS: MEROPENEM 500 MG in NS 50 ML IV SCH (20:29)
--- NOTE | 2022-06-04 20:40 | NUR ---
HYGIENE CARE HYGIENE CARE PROVIDED AT THIS TIME. EXTRA PILLOWS ALSO PROVIDED TO SUPPORT HER BONY PROMINENCES. SHE IS PROVIDED WITH FRESH LINENS AND REPOSITIONED FOR COMFORT.
[2022-06-04] MEDS: INSULIN GLARGINE 100 UNITS/ML 10 ML VIAL SUBCUT SCH (20:45)
--- NOTE | 2022-06-04 20:50 | NUR ---
COMMUNICATION W/ DR. NAZ CHILDS PAGED, HE WAS MADE AWARE THAT PATIENT IS CURRENTLY AROUSABLE ONLY TO PAIN, AND ONLY MOMENTARILY. AND IS UNABLE TO SWALLOW HER SCHEDULED CARDIZEM AT THIS TIME, HER HR IS CURRENTLY MID 120'S. MD GAVE ORDERS FOR CARDIAZEM IVP 5 MG Q6H PRN HR>110, ONLY IF PATIENT IS UNABLE TO SWALLOW. ORDER IS READ BACK, AND VERIFIED. MD ALSO MADE AWARE OF PATIENT'S CRITICAL BLOOD SUGAR, WITH 12 UNITS OF REGULAR INSULIN GIVEN PER SLIDING SCALE, AND WITH 5 UNITS OF SCHEDULED LANTUS.
[2022-06-04] MEDS: 0.45% NACL 1,000 ML IV SCH (20:56)
[2022-06-04] MEDS: DILTIAZEM HCL 60 MG TABLET PO SCH (21:00)
[2022-06-04] MEDS ORDERED: DICLOFENAC SODIUM 1% TP SCH (21:00)
[2022-06-04] MEDS: PANTOPRAZOLE SODIUM 40 MG TAB PO SCH (21:00)
[2022-06-04] MEDS: dilTIAZem HCL IVP 5 MG/ML VIAL IVP PRN (21:58)
[2022-06-05] VITALS: BP_SYST 111
[2022-06-05] MEDS: dilTIAZem HCL IVP 5 MG/ML VIAL IVP PRN (04:29)
--- NOTE | 2022-06-05 05:05 | NUR ---
LARGE BOWEL MOVEMENTS/HYGIENE CARE PATIENT HAS HAD LARGE BOWEL MOVEMENTS, HYGIENE CARE PROVIDED AT THIS TIME, PATIENT TOLERATED WELL. EXTRA PILLOWS ALSO PROVIDED TO SUPPORT HER BONY PROMINENCES. SHE IS PROVIDED WITH FRESH LINENS AND REPOSITIONED FOR COMFORT.
--- NOTE | 2022-06-05 06:30 | NUR ---
CLOSING NOTE PATIENT REMAINS LETHARGIC. PRN MEDICATION FOR ELEVATED HR WAS EFFECTIVE. SHE HAD LARGE BOWEL MOVEMENTS DURING THE NIGHT. PATIENT REMAINS ON ROOM AIR WITH OXYGEN SATURATION AT 98%L. SHE SLEPT WELL DURING THE SHIFT, AND SHOWED NO PAIN PER FLACC SCALE USED. FALL, SAFETY, AND ASPIRATION PRECAUTIONS HAVE BEEN IN PLACE THROUGHOUT THE SHIFT. WILL CONTINUE TO MONITOR UNTIL SHIFT REPORT IS GIVEN AT BEDSIDE TO AM NURSE.
[2022-06-05] MEDS: LEVOTHYROXINE SODIUM 0.075 MG TABLET PO SCH (06:32)
[2022-06-05] MEDS: 0.45% NACL 1,000 ML IV SCH ×2 (06:32→17:08)
--- NOTE | 2022-06-05 07:30 | NUR ---
OPENING NOTE Patient in bed resting with eyes closed. Patient will open her eyes with deep stimulation but is nonverbal and is unable to follow commands. IV fluids are running as prescribed. No sign of distress or pain. All needs met at this time and safety checks made.
--- NOTE | 2022-06-05 07:50 | NUR ---
SBAR REPORT RECEIVED FROM RN, ALL CARES ASSUMED.
[2022-06-05 08:00] VITALS: BP_SYST 109
[2022-06-05] MEDS: ASPIRIN 81 MG TAB.CHEW PO SCH (08:28)
[2022-06-05] MEDS: MULTIVITAMINS TAB 1 TABLET PO SCH (08:28)
[2022-06-05] MEDS: CHOLECALCIFEROL (VITAMIN D3) 5,000 UNIT TABLET PO SCH (08:28)
[2022-06-05] MEDS: DOCUSATE SODIUM 100 MG CAPSULE PO SCH (08:28)
[2022-06-05] MEDS: ASCORBIC ACID 500 MG TABLET PO SCH (08:28)
[2022-06-05] MEDS: FERROUS GLUCONATE 324 MG TABLET PO SCH (08:28)
[2022-06-05] MEDS: PANTOPRAZOLE SODIUM 40 MG TAB PO SCH ×2 (08:28→21:00)
[2022-06-05] MEDS: DILTIAZEM HCL 60 MG TABLET PO SCH ×3 (08:29→21:00)
[2022-06-05] MEDS: FOLIC ACID 1 MG TABLET PO SCH (08:29)
[2022-06-05] MEDS: METOPROLOL TARTRATE 25 MG TABLET PO SCH (08:30)
[2022-06-05] MEDS: MEROPENEM 500 MG in NS 50 ML IV SCH ×2 (08:30→21:00)
[2022-06-05] MEDS: MEGESTROL ACETATE 400 MG/10 ML UDC PO SCH (08:30)
[2022-06-05] MEDS ORDERED: PROTEIN HYDROLYS PO SCH (09:00)
[2022-06-05] MEDS ORDERED: AMINO ACIDS PO SCH (09:00)
[2022-06-05] MEDS ORDERED: CRANBERRY FRUIT PO SCH (09:00)
--- NOTE | 2022-06-05 11:18 | NUR ---
SPOKE TO Spoke with Dr Simmons and informed him of the patient's decreased blood pressure. MD acknowledged, no new orders at this time.
[2022-06-05 11:54] VITALS: BP_SYST 120
--- NOTE | 2022-06-05 13:00 | NUR ---
ROUNDS Patient in bed resting with eyes closed. Patient continues to be nonverbal and unable to follow commands. Patient has had two bouts of loose stools; patient was cleaned and bedding changed. All needs met at this time and safety checks made.
[2022-06-05 14:51] LABS: BASOPHILS % (AUTO) 0.2 % (0.0-2.0); EOSINOPHILS % (AUTO) 0.3 % (0.0-4.0); HEMATOCRIT 23.1 % (36-48); HEMOGLOBIN 7.7 g/dL (12.0-16.0); LYMPHOCYTES % (AUTO) 6.9 % (20.5-51.5); MEAN CORPUSCULAR HEMOGLOBIN 31 pg (27-31); MEAN CORPUSCULAR HGB CONC 33 % (32-36); MEAN CORPUSCULAR VOLUME 93 fL (79.0-98.0); MONOCYTES # (AUTO) 0.7 K/uL (0.0-1.0); NEUTROPHILS # (AUTO) 12.2 K/uL (1.8-7.7); NEUTROPHILS % (AUTO) 87.6 % (40.0-70.0); PLATELET COUNT (AUTO) 231 K/uL (130-430); RED BLOOD CELL COUNT(AUTO) 2.48 MIL/uL (4.2-6.2); RED CELL DISTRIBUTION WIDTH 14.5 % (9.0-15.0)
[2022-06-05 15:37] LABS: ANION GAP 11 (5-15); CHLORIDE 107 mmol/L (98-107); CREATININE 2.17 mg/dL (0.55-1.30); GLUCOSE 190 mg/dL (70-99); POTASSIUM 3.3 mmol/L (3.5-5.1); UREA NITROGEN, BLOOD 60 mg/dL (8-21)
[2022-06-05 17:12] VITALS: BP_SYST 110
[2022-06-05] MEDS: INSULIN REGULAR, HUMAN 100 UNITS/ML, 10 ML VIAL (humuLIN R) SUBCUT PRN (17:12)
--- NOTE | 2022-06-05 18:11 | NUR ---
SWALLOW EVAL Swallow evaluation rep came to see the patient. Patient was unwilling to open her mouth to participate in the screening. Patient did however drink her entire dinner ensure from a straw. No coughing and patient was able to swallow the ensure without difficulty.
--- NOTE | 2022-06-05 18:55 | NUR ---
CLOSING NOTE Patient is in bed resting with eyes closed, no sign of distress or pain. Patient has been turned throughout the shift to offload weight. Patient has had several bouts of loose stools. De La Fuente catheter is patent and draining dark hosea urine. IV is patent and running prescribed fluids. All needs met at this time and safety checks made. Will endorse to shiftman nurse.
--- NOTE | 2022-06-05 20:00 | NUR ---
OPENING NOTE PATIENT IS RESTING IN BED, NON VERBAL AOX0. PATIENT SHOWS NO PAIN PER FLACC SCALE AND NO PAIN INDICATED. PT HAS IV IN L WRIST WITH FLUIDS INFUSING. PT IS LETHARGIC, ONLY AROUSABLE TO PAINFUL STIMULI. SHE IS ON ROOM AIR WITH OXYGEN SATURATION AT 98%. BED IS LOCKED, ALARMED, AND AT THE LOWEST LEVEL. ASPIRATION, RESPIRATORY, FALL, AND SAFETY PRECAUTIONS WILL BE IN PLACE THROUGHOUT THE SHIFT. BLOOD PRESSURE WILL BE MONITORED CLOSELY
[2022-06-05] MEDS: DICLOFENAC SODIUM 1% GEL TP SCH (21:00)
[2022-06-05] MEDS: INSULIN GLARGINE 100 UNITS/ML 10 ML VIAL SUBCUT SCH (21:00)
[2022-06-06 01:04] VITALS: BP_SYST 106
[2022-06-06] MEDS: 0.45% NACL 1,000 ML IV SCH ×3 (02:15→22:17)
[2022-06-06] MEDS: LEVOTHYROXINE SODIUM 0.075 MG TABLET PO SCH (06:23)
[2022-06-06] MEDS: INSULIN REGULAR, HUMAN 100 UNITS/ML, 10 ML VIAL (humuLIN R) SUBCUT PRN ×3 (06:24→18:05)
--- NOTE | 2022-06-06 07:30 | NUR ---
OPENING NOTE Patient in bed resting with eyes closed, no sign of distress or pain. Patient is nonverbal and unable to follow commands. IV is patent and running prescribed fluids. De La Fuente catheter is patent and draining dark yellow urine. All needs met at this time and safety checks made.
[2022-06-06 08:00] VITALS: BP_SYST 113
[2022-06-06] MEDS: DICLOFENAC SODIUM 1% GEL TP SCH ×2 (09:00→21:00)
[2022-06-06] MEDS: MEROPENEM 500 MG in NS 50 ML IV SCH ×2 (09:00→21:57)
[2022-06-06] MEDS: CRANBERRY FRUIT PO SCH (09:00)
[2022-06-06] MEDS: DOCUSATE SODIUM 100 MG CAPSULE PO SCH (09:00)
[2022-06-06] MEDS: FERROUS GLUCONATE 324 MG TABLET PO SCH (09:06)
[2022-06-06] MEDS: PANTOPRAZOLE SODIUM 40 MG TAB PO SCH ×2 (09:06→21:58)
[2022-06-06] MEDS: ASPIRIN 81 MG TAB.CHEW PO SCH (09:06)
[2022-06-06] MEDS: FOLIC ACID 1 MG TABLET PO SCH (09:06)
[2022-06-06] MEDS: CHOLECALCIFEROL (VITAMIN D3) 5,000 UNIT TABLET PO SCH (09:06)
[2022-06-06] MEDS: MULTIVITAMINS TAB 1 TABLET PO SCH (09:06)
[2022-06-06] MEDS: ASCORBIC ACID 500 MG TABLET PO SCH (09:06)
[2022-06-06] MEDS: MEGESTROL ACETATE 400 MG/10 ML UDC PO SCH (09:07)
[2022-06-06] MEDS: DILTIAZEM HCL 60 MG TABLET PO SCH ×3 (09:54→21:00)
[2022-06-06] MEDS: METOPROLOL TARTRATE 25 MG TABLET PO SCH (09:54)
--- NOTE | 2022-06-06 13:00 | NUR ---
ROUNDS Patient in bed resting, no sign of distress or pain. Patient was willing to have some of her lunch, roughly 10% before refusing the rest. All needs met at this time and safety checks made.
[2022-06-06 13:46] VITALS: BP_SYST 101
[2022-06-06 19:29] VITALS: BP_SYST 111
--- NOTE | 2022-06-06 19:40 | NUR ---
PM ASSESSMENT; -Pt is resting in bed, nonverbal. IV site patent, no s/s any infiltration noted. IVF 1/2 NS @ 100ml/hr. De La Fuente cath w/ gravity drains yellow urine output. No s/s any chest pain,pain,sob,or any acute distress noted. Unable to discuss POC d/t cognitive limitation, no family is at bedside. Side rails x3,bed alarmed. cont to monitor pt.
--- NOTE | 2022-06-06 19:44 | NUR ---
CLOSING NOTE Patient in bed resting with eyes closed. No sign of distress or pain. Patient has had a decreased appetite throughout the shift, refused dinner entirely. IV is patent and running prescribed fluids. De La Fuente catheter is patent draining dark yellow urine to gravity. All needs met at this time and safety checks made. Endorsed to shift supervisor nurse.
[2022-06-06 19:50] VITALS: BP_SYST 105
--- NOTE | 2022-06-06 22:17 | NUR ---
ROUNDS; -Pt is resting in bed. No s/s any chest pain,pain,sob,or any acute distress noted. IV site patent, no s/s any infiltration noted. Gave routine crushed w/ apple sauce, pt tolerated well, w/o any difficulty or coughing. IVF 1/2 NS @ 100ml/hr. De La Fuente cath w/ gravity drains yellow urine output. Side rails x3,bed alarmed. cont to monitor pt.
[2022-06-06] MEDS: INSULIN GLARGINE 100 UNITS/ML 10 ML VIAL SUBCUT SCH (22:20)
--- NOTE | 2022-06-07 00:10 | NUR ---
ROUNDS; -Pt is asleep. No s/s any chest pain,pain,sob,or any acute distress noted. Side rails x3,bed alarmed. cont to monitor pt.
--- NOTE | 2022-06-07 01:41 | NUR ---
ROUNDS; -Pt is asleep. No s/s any chest pain,pain,sob,or any acute distress noted. Side rails x3,bed alarmed. cont to monitor pt.
[2022-06-07 01:52] VITALS: BP_SYST 122
--- NOTE | 2022-06-07 03:57 | NUR ---
ROUNDS; -Pt is asleep. No s/s any chest pain,pain,sob,or any acute distress noted. Side rails x3,bed alarmed. cont to monitor pt.
--- NOTE | 2022-06-07 04:06 | NUR ---
NOTES; SPOKE WITH JAXON FROM BLOOD BANK REGARDING 1 UNIT PRBC -MARCH STATED THAT HE WILL WHEN 1 UNIT OF PRBC IS READY. Addendum: 06/07/22 at 0409 by Broko Ivan RN RN CORRECTION- ENTRY DATA OF WRONG PATIENT
[2022-06-07] MEDS: LEVOTHYROXINE SODIUM 0.075 MG TABLET PO SCH (06:06)
--- NOTE | 2022-06-07 06:40 | NUR ---
CLOSING NOTES: PATIENT RESTING IN BED. NO S/S OF ACUTE DISTRESS NOTED. RÍOS CATH W/ GRAVITY DRAINS YELLOW URINE OUTPUT. IV SITE PATENT, IVF INFUSING WELL. BED ALARMED, SIDE RAILS X3, HOB > 30 DEGREE ENTIRE TIME. WILL ENDORSE TO NEXT NURSE TO CONT CARE.
[2022-06-07 07:46] LABS: ANION GAP 10 (5-15); CALCIUM 8.2 mg/dL (8.4-11.0); CHLORIDE 107 mmol/L (98-107); CREATININE 1.24 mg/dL (0.55-1.30); GLUCOSE 112 mg/dL (70-99); UREA NITROGEN, BLOOD 49 mg/dL (8-21)
[2022-06-07 07:52] LABS: TOTAL IRON BIND. CAPACITY 165 ug/dL (250-450)
[2022-06-07 08:00] VITALS: BP_SYST 132
--- NOTE | 2022-06-07 08:00 | NUR ---
INITIAL NOTES PATIENT IS RESTING, EYES CLOSED. NO S.S OF DISTRESS NOTED. AOX1. BREATHING IS EVEN AND NONLABORED, ON ROOM AIR. NO SOB NOTED. NO FACIAL GRIMACE NOTED. IVF RUNNING WELL. IV SITE PATENT. PATIENT HAS BEEN REPOSITIONED, HOB ELEVATED. SAFETY PRECAUTIONS IN PLACE: BED LOCKED, ALARM ON AND AT LOWEST POSITION. CALL LIGHT WITHIN REACH.
[2022-06-07 08:09] LABS: BASOPHILS % (AUTO) 0.4 % (0.0-2.0); EOSINOPHILS # (AUTO) 0.4 K/uL (0.0-0.4); EOSINOPHILS % (AUTO) 3.5 % (0.0-4.0); HEMOGLOBIN 7.1 g/dL (12.0-16.0); LYMPHOCYTES # (AUTO) 1.6 K/uL (1.0-5.5); MEAN CORPUSCULAR HEMOGLOBIN 32 pg (27-31); MEAN CORPUSCULAR HGB CONC 35 % (32-36); MEAN CORPUSCULAR VOLUME 92 fL (79.0-98.0); MONOCYTES % (AUTO) 9.3 % (1.7-9.3); NEUTROPHILS # (AUTO) 7.7 K/uL (1.8-7.7); NEUTROPHILS % (AUTO) 71.8 % (40.0-70.0); PLATELET COUNT (AUTO) 237 K/uL (130-430); RED BLOOD CELL COUNT(AUTO) 2.21 MIL/uL (4.2-6.2); RED CELL DISTRIBUTION WIDTH 14.1 % (9.0-15.0); WHITE BLOOD COUNT (AUTO) 10.8 K/uL (4.8-10.8)
[2022-06-07] MEDS: 0.45% NACL 1,000 ML IV SCH ×2 (08:15→15:06)
[2022-06-07 08:58] LABS: POTASSIUM 2.9 mmol/L (3.5-5.1)
[2022-06-07] MEDS: CRANBERRY FRUIT PO SCH (09:00)
[2022-06-07] MEDS: DICLOFENAC SODIUM 1% GEL TP SCH ×2 (09:00→21:00)
[2022-06-07 09:01] LABS: HEMATOCRIT 20.4 % (36-48)
[2022-06-07] MEDS: FOLIC ACID 1 MG TABLET PO SCH (09:43)
[2022-06-07] MEDS: CHOLECALCIFEROL (VITAMIN D3) 5,000 UNIT TABLET PO SCH (09:43)
[2022-06-07] MEDS: DOCUSATE SODIUM 100 MG CAPSULE PO SCH (09:43)
[2022-06-07] MEDS: MEGESTROL ACETATE 400 MG/10 ML UDC PO SCH (09:43)
[2022-06-07] MEDS: PANTOPRAZOLE SODIUM 40 MG TAB PO SCH ×2 (09:43→21:31)
[2022-06-07] MEDS: FERROUS GLUCONATE 324 MG TABLET PO SCH (09:43)
[2022-06-07] MEDS: ASPIRIN 81 MG TAB.CHEW PO SCH (09:43)
[2022-06-07] MEDS: DILTIAZEM HCL 60 MG TABLET PO SCH ×3 (09:44→21:31)
[2022-06-07] MEDS: ASCORBIC ACID 500 MG TABLET PO SCH (09:44)
[2022-06-07] MEDS: METOPROLOL TARTRATE 25 MG TABLET PO SCH (09:44)
[2022-06-07] MEDS: MULTIVITAMINS TAB 1 TABLET PO SCH (09:45)
--- NOTE | 2022-06-07 09:45 | NUR ---
CRITICAL PAGED DR. CHILDS FOR POTASSIUM 2.9 AND HEMATOCRIT 20.4 CRITICAL. MD TO SEE PATIENT.
[2022-06-07] MEDS: MEROPENEM 500 MG in NS 50 ML IV SCH ×2 (11:12→21:26)
[2022-06-07 11:39] VITALS: BP_SYST 153
--- NOTE | 2022-06-07 12:00 | NUR ---
NOTES CHANGED AND REPOSITIONED PATIENT. NO DISTRESS NOTED. NO SOB NOTED. BREATHING IS EVEN AND NONLABORED, ON ROOM AIR. SAFETY PRECAUTIONS IN PLACE AND CALL LIGHT WITHIN REACH.
--- NOTE | 2022-06-07 13:40 | NUR ---
NOTES DR. CHILDS CAME TO SEE PATIENT. NEW ORDERS RECEIVED.
[2022-06-07] MEDS ORDERED: POTASSIUM CHLORIDE 20 MEQ/PKT PACKET PO ONE (13:45)
[2022-06-07] MEDS ORDERED: POTASSIUM CHLORIDE 40 MEQ in NS 250 ML IV ONE (14:30)
[2022-06-07] MEDS ORDERED: MENTHOL/ZINC OXIDE 113 GM OINT. TP PRN (16:15)
[2022-06-07 16:16] VITALS: BP_SYST 146
--- NOTE | 2022-06-07 17:00 | NUR ---
NOTES PATIENT HAS BEEN CLEANED AND REPOSITIONED. BOOGIE MOYER ASSESSED WOUNDS. WOUND CARE HAS BEEN DONE. NO DISTRESS NOTED. BREATHING IS EVEN AND NONLABORED, ON ROOM AIR. HON ELEVATED. IVF RUNNING WELL. SAFETY PRECAUTIONS IN PLACE AND CALL LIGHT WITHIN REACH.
--- NOTE | 2022-06-07 19:37 | NUR ---
CLOSING NOTES PATIENT IS RESTING, EYES CLOSED. NO S.S OF DISTRESS NOTED. NO SOB. PATIENT'S BREATHING IS EVEN AND NONLABORED, ON ROOM AIR. NO FACIAL GRIMACE NOTED. IVF RUNNING. PATENT. F/ C DRAINING BY GRAVITY. BED LOCKED, ALARM ON, AND AT LOWEST POSITION. CALL LIGHT WITHIN REACH. ENDORSED CARE TO ONCOMING NURSE.
[2022-06-07 19:40] VITALS: BP_SYST 122
--- NOTE | 2022-06-07 19:40 | NUR ---
INITIAL NOTE AT INITIAL ASSESSMENT, PATIENT IS RESTING IN BED, STABLE, NO SIGNS OF RESPIRATORY DISTRESS. VITAL SIGNS STABLE. PATIENT SHOWS NO PAIN PER FLACC SCALE USED. SHE IS MOSTLY WITHDRAWN/NON-VERBAL UNLESS SHE DOES NOT LIKE SOMETHING SUCH GETTING HER BLOOD PRESSURE TAKEN. PLAN OF CARE FOR THE EVENING IS COMMUNICATED WITH THE PATIENT, ALTHOUGH SHE IS AOX0. SHE IS ON ROOM AIR WITH OXYGEN SATURATION AT 98%. BED IS LOCKED, ALARMED, AND AT THE LOWEST LEVEL. ASPIRATION, RESPIRATORY, FALL, AND SAFETY PRECAUTIONS WILL BE IN PLACE THROUGHOUT THE SHIFT.
[2022-06-07] MEDS: INSULIN GLARGINE 100 UNITS/ML 10 ML VIAL SUBCUT SCH (21:36)
[2022-06-08] VITALS: BP_SYST 114
--- NOTE | 2022-06-08 03:40 | NUR ---
ROUNDS PATIENT IS SLEEPING, STABLE, NO SIGNS OF RESPIRATORY DISTRESS. BED IS LOCKED AND AT THE LOWEST LEVEL. FALL AND SAFETY PRECAUTIONS IN PLACE.
[2022-06-08] MEDS: 0.45% NACL 1,000 ML IV SCH ×2 (04:05→15:52)
--- NOTE | 2022-06-08 05:03 | NUR ---
BOWEL MOVEMENT/ HYGIENE CARE PATIENT HAD A BOWEL MOVEMENT, HYGIENE CARE AND FRESH LINENS PROVIDED AT THIS TIME. PATIENT TOLERATED WELL. PATIENT IS REPOSITIONED FOR COMFORT. BED IS LOCKED, ALARMED, AND AT THE LOWEST LEVEL.
[2022-06-08] MEDS: LEVOTHYROXINE SODIUM 0.075 MG TABLET PO SCH (06:33)
[2022-06-08] MEDS: INSULIN REGULAR, HUMAN 100 UNITS/ML, 10 ML VIAL (humuLIN R) SUBCUT PRN ×3 (06:38→17:13)
--- NOTE | 2022-06-08 06:54 | NUR ---
CLOSING NOTE PATIENT HAD NO RESPIRATORY OR CARDIAC EVENTS DURING THE SHIFT. SHE REMAINS NONVERBAL AND WITHDRAWN WHEN SHE IS ASKED A QUESTION, BUT SHE DOES SAY "YOU'RE HURTING ME" AND OTHER SMALL PHRASES WHEN WE TAKE HER BLOOD PRESSURE OR PERFORM HYGIENE CARE. SHE HAD A SMALL BOWEL MOVEMENTS DURING THE NIGHT. PATIENT REMAINS ON ROOM AIR WITH OXYGEN SATURATION AT 98%L. SHE SLEPT WELL DURING THE SHIFT, AND SHOWED NO PAIN PER FLACC SCALE USED. FALL, SAFETY, AND ASPIRATION PRECAUTIONS HAVE BEEN IN PLACE THROUGHOUT THE SHIFT. WILL CONTINUE TO MONITOR UNTIL SHIFT REPORT IS GIVEN AT BEDSIDE TO AM NURSE.
--- NOTE | 2022-06-08 07:30 | NUR ---
MORNING ROUNDS: PATIENT SLEEPING DURING ROUNDS. IV FLUIDS RUNNING AT RIGHT HAND INTACT. CODE STATUS DNR. CALL LIGHT WITH IN REACH. BED LOCKED AT LOWEST POSITION.BED ALARM ON. NO ACUTE DISTRESS.
[2022-06-08 08:00] VITALS: BP_SYST 110
[2022-06-08 08:18] LABS: ANION GAP 9 (5-15); CALCIUM 8.4 mg/dL (8.4-11.0); CHLORIDE 110 mmol/L (98-107); CREATININE 1.16 mg/dL (0.55-1.30); GLUCOSE 186 mg/dL (70-99); POTASSIUM 4.2 mmol/L (3.5-5.1); UREA NITROGEN, BLOOD 40 mg/dL (8-21)
[2022-06-08] MEDS: CRANBERRY FRUIT PO SCH (09:00)
[2022-06-08] MEDS: DICLOFENAC SODIUM 1% GEL TP SCH ×2 (09:00→21:21)
--- NOTE | 2022-06-08 09:00 | NUR ---
PT TOOK ENSURE: ASSISTED PATIENT TO DRINK ENSURE AND WAS ABLE TO FINISHED IT ALL. WELL TOLERATED.
[2022-06-08] MEDS: MEROPENEM 500 MG in NS 50 ML IV SCH ×2 (09:13→21:11)
[2022-06-08] MEDS: FOLIC ACID 1 MG TABLET PO SCH (09:17)
[2022-06-08] MEDS: DOCUSATE SODIUM 100 MG CAPSULE PO SCH (09:17)
[2022-06-08] MEDS: PANTOPRAZOLE SODIUM 40 MG TAB PO SCH ×2 (09:18→21:00)
[2022-06-08] MEDS: MEGESTROL ACETATE 400 MG/10 ML UDC PO SCH (09:18)
[2022-06-08] MEDS: CHOLECALCIFEROL (VITAMIN D3) 5,000 UNIT TABLET PO SCH (09:18)
[2022-06-08] MEDS: METOPROLOL TARTRATE 25 MG TABLET PO SCH (09:18)
[2022-06-08] MEDS: FERROUS GLUCONATE 324 MG TABLET PO SCH (09:19)
[2022-06-08] MEDS: DILTIAZEM HCL 60 MG TABLET PO SCH ×3 (09:19→21:14)
[2022-06-08] MEDS: ASPIRIN 81 MG TAB.CHEW PO SCH (09:19)
[2022-06-08] MEDS: ASCORBIC ACID 500 MG TABLET PO SCH (09:20)
[2022-06-08] MEDS: MULTIVITAMINS TAB 1 TABLET PO SCH (09:20)
[2022-06-08 10:06] LABS: FOLATE (FOLIC ACID) >20.0 ng/mL (>3.0)
[2022-06-08 11:31] LABS: HEMOGLOBIN 8.4 g/dL (12.0-16.0); LYMPHOCYTES % (AUTO) 22.7 % (20.5-51.5); MEAN CORPUSCULAR HEMOGLOBIN 32 pg (27-31); MEAN CORPUSCULAR HGB CONC 34 % (32-36); MEAN CORPUSCULAR VOLUME 94 fL (79.0-98.0); MONOCYTES % (AUTO) 12.6 % (1.7-9.3); NEUTROPHILS % (AUTO) 58.9 % (40.0-70.0); PLATELET COUNT (AUTO) 295 K/uL (130-430); RED BLOOD CELL COUNT(AUTO) 2.66 MIL/uL (4.2-6.2); RED CELL DISTRIBUTION WIDTH 14.5 % (9.0-15.0)
[2022-06-08 11:32] LABS: BASOPHILS # (AUTO) 0.1 K/uL (0.0-0.2); BASOPHILS % (AUTO) 0.8 % (0.0-2.0); EOSINOPHILS # (AUTO) 0.5 K/uL (0.0-0.4); LYMPHOCYTES # (AUTO) 2.4 K/uL (1.0-5.5); MONOCYTES # (AUTO) 1.3 K/uL (0.0-1.0); NEUTROPHILS # (AUTO) 6.2 K/uL (1.8-7.7); WHITE BLOOD COUNT (AUTO) 10.6 K/uL (4.8-10.8)
--- NOTE | 2022-06-08 12:13 | NUR ---
DC PLANNING Called & spoke with Dr Simmons regarding dc planning. States pt is not eating, tried calling dtr yest with no response, is going to call and speak with dtr today to determine plan for pt.
--- NOTE | 2022-06-08 12:15 | NUR ---
RN ROUNDS: PATIENT HAD ENSURE PER AUDIT INTERN. STABLE.
[2022-06-08 12:22] VITALS: BP_SYST 112
--- NOTE | 2022-06-08 15:30 | NUR ---
MEDS: CRUSHED MEDS,PATIENT REFUSED TO TAKE IT. MD AWARE.
--- NOTE | 2022-06-08 17:00 | NUR ---
BLOOD SUGAR: BLOOD SUGAR TAKEN,WITH INSULIN COVERAGE GIVEN PER SLIDING SCALE. NO PROBLEM.
[2022-06-08 18:02] VITALS: BP_SYST 105
--- NOTE | 2022-06-08 18:44 | NUR ---
Evening Rounds: Patient resting and does not want to be disturbed. Md informed with pt's poor appetite and only drinks ensure and refused the Puree diet. Per Dr Simmons,he will speak to the family.Bed alarm on. Condition guarded.
--- NOTE | 2022-06-08 19:15 | NUR ---
OPENING NOTES Patient resting in bed - no s/s pain or distress noted. Respirations even and unlabored - head of bed elevated. IV site patent - no s/s redness, infection, or infiltration. Bed locked and in lowest position. Call light within reach. Bed alarm on.
[2022-06-08 20:00] VITALS: BP_SYST 112
[2022-06-08] MEDS: INSULIN GLARGINE 100 UNITS/ML 10 ML VIAL SUBCUT SCH (21:00)
[2022-06-09 00:30] VITALS: BP_SYST 114
[2022-06-09] MEDS: 0.45% NACL 1,000 ML IV SCH ×3 (03:21→20:42)
[2022-06-09] MEDS: LEVOTHYROXINE SODIUM 0.075 MG TABLET PO SCH (06:38)
--- NOTE | 2022-06-09 07:31 | NUR ---
CLOSING NOTES Patient resting in bed - no s/s pain or distress noted. Respirations even and unlabored - head of bed elevated. IV site patent - no s/s redness, infection, or infiltration. Bed locked and in lowest position. Call light within reach. Bed alarm on. Patient cleaned and linens changed at approximately 0500
[2022-06-09 08:28] LABS: ANION GAP 8 (5-15); CALCIUM 7.9 mg/dL (8.4-11.0); CHLORIDE 108 mmol/L (98-107); CREATININE 0.94 mg/dL (0.55-1.30); GLUCOSE 135 mg/dL (70-99); POTASSIUM 3.8 mmol/L (3.5-5.1); UREA NITROGEN, BLOOD 29 mg/dL (8-21)
[2022-06-09 08:52] LABS: BASOPHILS # (AUTO) 0.1 K/uL (0.0-0.2); BASOPHILS % (AUTO) 0.6 % (0.0-2.0); EOSINOPHILS # (AUTO) 0.6 K/uL (0.0-0.4); EOSINOPHILS % (AUTO) 5.4 % (0.0-4.0); LYMPHOCYTES # (AUTO) 2.9 K/uL (1.0-5.5); LYMPHOCYTES % (AUTO) 26.5 % (20.5-51.5); MEAN CORPUSCULAR VOLUME 94 fL (79.0-98.0); MONOCYTES # (AUTO) 1.5 K/uL (0.0-1.0); MONOCYTES % (AUTO) 13.5 % (1.7-9.3); NEUTROPHILS # (AUTO) 5.8 K/uL (1.8-7.7); PLATELET COUNT (AUTO) 300 K/uL (130-430); RED BLOOD CELL COUNT(AUTO) 2.35 MIL/uL (4.2-6.2); RED CELL DISTRIBUTION WIDTH 14.4 % (9.0-15.0); WHITE BLOOD COUNT (AUTO) 10.8 K/uL (4.8-10.8)
[2022-06-09] MEDS: CRANBERRY FRUIT PO SCH (09:00)
[2022-06-09] MEDS: FERROUS GLUCONATE 324 MG TABLET PO SCH (09:00)
[2022-06-09] MEDS: MEROPENEM 500 MG in NS 50 ML IV SCH ×2 (10:18→20:41)
[2022-06-09] MEDS: ASPIRIN 81 MG TAB.CHEW PO SCH (11:46)
[2022-06-09] MEDS: FOLIC ACID 1 MG TABLET PO SCH (11:47)
[2022-06-09] MEDS: METOPROLOL TARTRATE 25 MG TABLET PO SCH (11:48)
[2022-06-09] MEDS: DOCUSATE SODIUM 100 MG CAPSULE PO SCH (11:49)
[2022-06-09] MEDS: MEGESTROL ACETATE 400 MG/10 ML UDC PO SCH (11:51)
[2022-06-09] MEDS: CHOLECALCIFEROL (VITAMIN D3) 5,000 UNIT TABLET PO SCH (11:52)
[2022-06-09] MEDS: PANTOPRAZOLE SODIUM 40 MG TAB PO SCH ×2 (11:52→20:41)
[2022-06-09] MEDS: ASCORBIC ACID 500 MG TABLET PO SCH (11:53)
[2022-06-09] MEDS: DILTIAZEM HCL 60 MG TABLET PO SCH ×2 (11:53→20:43)
[2022-06-09] MEDS: MULTIVITAMINS TAB 1 TABLET PO SCH (11:54)
[2022-06-09 12:49] LABS: HEMOGLOBIN 7.3 g/dL (12.0-16.0); MEAN CORPUSCULAR HEMOGLOBIN 31 pg (27-31); MEAN CORPUSCULAR HGB CONC 33 % (32-36)
--- NOTE | 2022-06-09 14:27 | NUR ---
DISCHARGE PLANNING Called & lt msg with dtr Alicia Landin, ph [phone], to return call to discuss dc planning.
--- NOTE | 2022-06-09 16:43 | NUR ---
Dietitian Recommendations * Consider liberalize diet order to improve PO intake * Recommend 1:1 feeding assistance at meal times * Encourage good PO intake * If/when artificial nutrition is necessary, consult RD Please refer to Nutritional Assessment for details, thanks! CC, MPH, RDN
[2022-06-09 19:20] VITALS: BP_SYST 93
--- NOTE | 2022-06-09 20:35 | NUR ---
ROUNDS; NEW IV INSERTION -Pt is lying comfortably. No s/s any infiltration noted. IV site of rt hand infiltrated, removed IV with whole tip catheter, no active bleeding, secured with tape. Inserted new IV site of Rt LUANNE #22, patent after flushed w/ NS,no s/s any infiltration, good blood returns noted. Continuing with IVF 1/2NS @ 100ml/hr. Call light w/in reach, side rails x3. Cont to monitor pt.
[2022-06-09] MEDS: DICLOFENAC SODIUM 1% GEL TP SCH (21:00)
[2022-06-09] MEDS: INSULIN GLARGINE 100 UNITS/ML 10 ML VIAL SUBCUT SCH (21:07)
[2022-06-09] MEDS: INSULIN REGULAR, HUMAN 100 UNITS/ML, 10 ML VIAL (humuLIN R) SUBCUT PRN (21:08)
--- NOTE | 2022-06-10 | NUR ---
ROUNDS; -Pt is resting in bed comfortably. NO s/s any acute distress noted. Fall precaution in place. Bed alarmed, side rails x3, call light w/in reach. Cont to monitor pt.
[2022-06-10 00:01] VITALS: BP_SYST 136
--- NOTE | 2022-06-10 01:06 | NUR ---
NOTES; ENDORSED TO PATTI-RN TO CONTINUITY OF CARE -PT'S CONDITION STABLE.
--- NOTE | 2022-06-10 01:21 | NUR ---
0115: RECEIVED PT LYING IN BED, PT SLEEPING. RR REGULAR AND UNLABORED. IVF INFUSING TO RUE SITE CDI. F/C DRAINING YELLOW URINE SECURITY STAT LOCK IN PLACE. BLE ELEVATED ONTO PILLOWS
[2022-06-10] MEDS: INSULIN REGULAR, HUMAN 100 UNITS/ML, 10 ML VIAL (humuLIN R) SUBCUT PRN ×4 (06:30→22:07)
[2022-06-10] MEDS: 0.45% NACL 1,000 ML IV SCH ×2 (06:33→16:26)
[2022-06-10] MEDS: LEVOTHYROXINE SODIUM 0.075 MG TABLET PO SCH (06:34)
[2022-06-10 07:18] LABS: BASOPHILS # (AUTO) 0.1 K/uL (0.0-0.2); BASOPHILS % (AUTO) 0.5 % (0.0-2.0); EOSINOPHILS # (AUTO) 0.4 K/uL (0.0-0.4); EOSINOPHILS % (AUTO) 3.8 % (0.0-4.0); HEMATOCRIT 23.9 % (36-48); LYMPHOCYTES # (AUTO) 2.5 K/uL (1.0-5.5); LYMPHOCYTES % (AUTO) 22.1 % (20.5-51.5); MEAN CORPUSCULAR VOLUME 93 fL (79.0-98.0); MONOCYTES % (AUTO) 8.8 % (1.7-9.3); NEUTROPHILS # (AUTO) 7.2 K/uL (1.8-7.7); NEUTROPHILS % (AUTO) 64.8 % (40.0-70.0); PLATELET COUNT (AUTO) 324 K/uL (130-430); RED BLOOD CELL COUNT(AUTO) 2.58 MIL/uL (4.2-6.2); RED CELL DISTRIBUTION WIDTH 14.7 % (9.0-15.0); WHITE BLOOD COUNT (AUTO) 11.1 K/uL (4.8-10.8)
[2022-06-10 08:00] VITALS: BP_SYST 143
--- NOTE | 2022-06-10 08:06 | NUR ---
ENDORSED REPORT TO ISAAC HYMAN
[2022-06-10 08:07] LABS: ANION GAP 8 (5-15); CALCIUM 7.8 mg/dL (8.4-11.0); CHLORIDE 105 mmol/L (98-107); CREATININE 0.89 mg/dL (0.55-1.30); GLUCOSE 179 mg/dL (70-99); POTASSIUM 3.8 mmol/L (3.5-5.1); UREA NITROGEN, BLOOD 21 mg/dL (8-21)
[2022-06-10] MEDS: ASPIRIN 81 MG TAB.CHEW PO SCH (08:54)
[2022-06-10] MEDS: DILTIAZEM HCL 60 MG TABLET PO SCH ×3 (08:55→21:00)
[2022-06-10] MEDS: DOCUSATE SODIUM 100 MG CAPSULE PO SCH (08:55)
[2022-06-10] MEDS: MULTIVITAMINS TAB 1 TABLET PO SCH (08:56)
[2022-06-10] MEDS: FOLIC ACID 1 MG TABLET PO SCH (08:56)
[2022-06-10] MEDS: METOPROLOL TARTRATE 25 MG TABLET PO SCH (08:56)
[2022-06-10] MEDS: MEGESTROL ACETATE 400 MG/10 ML UDC PO SCH (08:56)
[2022-06-10] MEDS: ASCORBIC ACID 500 MG TABLET PO SCH (08:57)
[2022-06-10] MEDS: PANTOPRAZOLE SODIUM 40 MG TAB PO SCH ×2 (08:57→22:04)
[2022-06-10] MEDS: CHOLECALCIFEROL (VITAMIN D3) 5,000 UNIT TABLET PO SCH (08:58)
[2022-06-10] MEDS: DICLOFENAC SODIUM 1% GEL TP SCH ×2 (09:00→22:27)
[2022-06-10] MEDS: FERROUS GLUCONATE 324 MG TABLET PO SCH (09:00)
[2022-06-10] MEDS: CRANBERRY FRUIT PO SCH (09:00)
[2022-06-10] MEDS: MEROPENEM 500 MG in NS 50 ML IV SCH ×2 (09:12→22:03)
[2022-06-10 12:00] VITALS: BP_SYST 133
[2022-06-10 13:39] LABS: FERRITIN 967 ng/mL (15-150)
[2022-06-10 15:49] VITALS: BP_SYST 108
--- NOTE | 2022-06-10 17:34 | NUR ---
Pt remained non-verbal all day, assisted to eat her meals and she requires max assist, able to swallow without difficulty. turned pt q2 hrs throughout the day. pt had small bm, skin washed and kept dry. ivf at 100ml/hr and f/c with yellow clear urine. continue to monitor pt closely.
[2022-06-10 19:25] VITALS: BP_SYST 125
--- NOTE | 2022-06-10 19:25 | NUR ---
PM ASSESSMENT; -Pt is resting in bed, nonverbal. IV site of LUANNE patent, no s/s any infiltration noted. IVF 1/2 NS @ 100ml/hr. De La Fuente cath w/ gravity drains yellow urine output. No s/s any chest pain,pain,sob,or any acute distress noted. Unable to discuss POC d/t cognitive limitation, no family is at bedside. Side rails x3,bed alarmed. cont to monitor pt.
--- NOTE | 2022-06-10 22:03 | NUR ---
ROUNDS; -Pt is resting in bed comfortably. NO s/s any acute distress noted. Gave all routine meds. IVF infusing well, no s/s any infiltration noted. All safety measures in place. Cont to monitor pt.
[2022-06-10] MEDS: INSULIN GLARGINE 100 UNITS/ML 10 ML VIAL SUBCUT SCH (22:12)
[2022-06-11] VITALS: BP_SYST 96
--- NOTE | 2022-06-11 | NUR ---
ROUNDS; -Pt is asleep in bed comfortably. NO s/s any acute distress noted. All safety measures in place. Cont to monitor pt.
--- NOTE | 2022-06-11 04:10 | NUR ---
ROUNDS; -Pt is asleep in bed comfortably. NO s/s any acute distress noted. All safety measures in place. Cont to monitor pt.
--- NOTE | 2022-06-11 05:25 | NUR ---
NOTES; -Pt is incont of dark green loose stool, provided perineal care. Also, cleansed sacral wound with mild warm soap, applied calmoseptin oitment and optifoam drsg applied and changed bryan heels drsg. Now, pt is cleaned and dry. Cont to monitor pt.
[2022-06-11] MEDS: LEVOTHYROXINE SODIUM 0.075 MG TABLET PO SCH (06:15)
[2022-06-11] MEDS: 0.45% NACL 1,000 ML IV SCH ×2 (06:16→12:15)
--- NOTE | 2022-06-11 06:18 | NUR ---
BLOOD AEBQV=[id number],NO SSI COVERAGE
--- NOTE | 2022-06-11 06:49 | NUR ---
CLOSING NOTES; Pt is resting in bed comfortably. IV site of LUANNE patent, no s/s any infiltration noted. IVF 1/2 NS @ 100ml/hr. De La Fuente cath w/ gravity drains yellow urine output. No s/s any chest pain,pain,sob,or any acute distress noted. Side rails x3,bed alarmed. Will endorse to next nurse to cont care.
[2022-06-11 08:00] VITALS: BP_SYST 156
--- NOTE | 2022-06-11 08:00 | NUR ---
AM NOTES PATIENT ASLEEP, NOTED EDEMA ON RIGHT UPPER EXTREMITY DUE TO IV LINE, REMOVED IV HEPLOCK ON RIGHT ARM, RIGHT UPPER ARM WITH IV SITE SWOLLEN, IV SITE ON RIGHT UPPER ARM DC'D, RE-INSERTED A NEW IV SITE ON LEFT HAND X1 WITH GOOD BLOOD RETURN. ON PUREED DIET, FED PATIENT THIS AM. CONTINUE ON IV ABT.
[2022-06-11 08:54] LABS: ANION GAP 7 (5-15); CALCIUM 7.3 mg/dL (8.4-11.0); CHLORIDE 104 mmol/L (98-107); CREATININE 0.86 mg/dL (0.55-1.30); GLUCOSE 105 mg/dL (70-99); POTASSIUM 3.6 mmol/L (3.5-5.1); UREA NITROGEN, BLOOD 17 mg/dL (8-21)
[2022-06-11] MEDS: CRANBERRY FRUIT PO SCH (09:00)
[2022-06-11] MEDS: DICLOFENAC SODIUM 1% GEL TP SCH ×2 (09:00→20:29)
[2022-06-11 09:16] LABS: BASOPHILS # (AUTO) 0.1 K/uL (0.0-0.2); BASOPHILS % (AUTO) 0.7 % (0.0-2.0); EOSINOPHILS # (AUTO) 0.5 K/uL (0.0-0.4); EOSINOPHILS % (AUTO) 3.8 % (0.0-4.0); LYMPHOCYTES # (AUTO) 2.3 K/uL (1.0-5.5); MEAN CORPUSCULAR VOLUME 92 fL (79.0-98.0); MONOCYTES % (AUTO) 7.7 % (1.7-9.3); NEUTROPHILS % (AUTO) 69.8 % (40.0-70.0); PLATELET COUNT (AUTO) 326 K/uL (130-430); RED BLOOD CELL COUNT(AUTO) 2.37 MIL/uL (4.2-6.2); RED CELL DISTRIBUTION WIDTH 14.7 % (9.0-15.0); WHITE BLOOD COUNT (AUTO) 12.9 K/uL (4.8-10.8)
[2022-06-11] MEDS: MEGESTROL ACETATE 400 MG/10 ML UDC PO SCH (09:48)
[2022-06-11] MEDS: FERROUS GLUCONATE 324 MG TABLET PO SCH (09:48)
[2022-06-11] MEDS: DOCUSATE SODIUM 100 MG CAPSULE PO SCH (09:49)
[2022-06-11] MEDS: DILTIAZEM HCL 60 MG TABLET PO SCH ×3 (09:49→20:17)
[2022-06-11] MEDS: ASPIRIN 81 MG TAB.CHEW PO SCH (09:49)
[2022-06-11] MEDS: MULTIVITAMINS TAB 1 TABLET PO SCH (09:50)
[2022-06-11] MEDS: FOLIC ACID 1 MG TABLET PO SCH (09:50)
[2022-06-11] MEDS: ASCORBIC ACID 500 MG TABLET PO SCH (09:50)
[2022-06-11] MEDS: PANTOPRAZOLE SODIUM 40 MG TAB PO SCH ×2 (09:51→20:17)
[2022-06-11] MEDS: METOPROLOL TARTRATE 25 MG TABLET PO SCH (09:51)
[2022-06-11] MEDS: CHOLECALCIFEROL (VITAMIN D3) 5,000 UNIT TABLET PO SCH (09:51)
--- NOTE | 2022-06-11 10:00 | NUR ---
WOUND DENUDED SKIN BUTTOCKS AREA, HAD A BM, DRESSING CHANGED BUTTOCKS AREA. WITH FOAM DRESSING BILATERAL HEEL CHANGED EARLY THIS AM. BOTH HEEL FLOATED WITH PILLOW AT ALL TIMES.
[2022-06-11 11:12] LABS: HEMATOCRIT 21.8 % (36-48)
[2022-06-11 12:00] VITALS: BP_SYST 140
--- NOTE | 2022-06-11 13:00 | NUR ---
RISK FOR DVT SPOKE TO DR REILLY AND ORDERED SCD TO PREVENT DVT.
--- NOTE | 2022-06-11 15:00 | NUR ---
BM HAD A BM, GOOD PERICARE PROVIDED.
[2022-06-11 15:37] VITALS: BP_SYST 114
--- NOTE | 2022-06-11 19:28 | NUR ---
FED PATIENT FED PATIENT, ATE 75% OF FOOD, ON PUREED DIET. KEPT ON HIGH BACK REST.
--- NOTE | 2022-06-11 19:30 | NUR ---
Opening note Received report from day shift. Pt lying in bed, eyes closed. No s/s of respiratory distress. Breathing even and unlabored on RA. IV site intact and patent with fluids running at ordered rate. Fall and safety precautions in place with bed in lowest position, bed alarm on, and call light within reach
[2022-06-11 20:00] VITALS: BP_SYST 125
[2022-06-11] MEDS: INSULIN GLARGINE 100 UNITS/ML 10 ML VIAL SUBCUT SCH (20:23)
[2022-06-12] VITALS: BP_SYST 123
--- NOTE | 2022-06-12 00:15 | NUR ---
Rounds Pt lying in bed, eyes closed. No s/s of acute distress. VSS. Fall and safety precautions in place
[2022-06-12] MEDS: INSULIN REGULAR, HUMAN 100 UNITS/ML, 10 ML VIAL (humuLIN R) SUBCUT PRN ×2 (06:26→17:33)
[2022-06-12] MEDS: LEVOTHYROXINE SODIUM 0.075 MG TABLET PO SCH (06:26)
[2022-06-12] MEDS: 0.45% NACL 1,000 ML IV SCH (06:29)
--- NOTE | 2022-06-12 07:02 | NUR ---
Closing note Pt is lying in bed, eyes closed. No s/s of respiratory distress. Breathing even and unlabored on RA. IV site intact and patent with fluids running at ordered rate. De La Fuente catheter intact and draining by gravity. Fall and safety precautions in place with bed in lowest position, bed alarm on, and call light within reach
[2022-06-12 07:29] LABS: BASOPHILS % (AUTO) 0.3 % (0.0-2.0); EOSINOPHILS # (AUTO) 0.2 K/uL (0.0-0.4); EOSINOPHILS % (AUTO) 1.8 % (0.0-4.0); LYMPHOCYTES # (AUTO) 2.1 K/uL (1.0-5.5); LYMPHOCYTES % (AUTO) 16.2 % (20.5-51.5); MEAN CORPUSCULAR VOLUME 92 fL (79.0-98.0); MONOCYTES # (AUTO) 0.9 K/uL (0.0-1.0); MONOCYTES % (AUTO) 6.6 % (1.7-9.3); NEUTROPHILS # (AUTO) 9.8 K/uL (1.8-7.7); NEUTROPHILS % (AUTO) 75.1 % (40.0-70.0); PLATELET COUNT (AUTO) 340 K/uL (130-430); RED CELL DISTRIBUTION WIDTH 14.4 % (9.0-15.0); WHITE BLOOD COUNT (AUTO) 13.1 K/uL (4.8-10.8)
--- NOTE | 2022-06-12 07:30 | NUR ---
OPENING NOTE Patient in bed resting with eyes closed. No sign of distress or pain. Patient is nonverbal and only responds to light stimuli. De La Fuente catheter is in place draining hosea urine. All needs met at this time and safety checks made.
--- NOTE | 2022-06-12 07:45 | NUR ---
CRITICAL LAB: Laboratory called with critical lab value hct 18.5. Medical record number and patient name verified. Read back of values done. Dr Simmons notified of value.
[2022-06-12 07:46] LABS: HEMATOCRIT 18.5 % (36-48)
[2022-06-12 08:00] VITALS: BP_SYST 131
[2022-06-12 08:14] LABS: ANION GAP 7 (5-15); CALCIUM 7.2 mg/dL (8.4-11.0); CHLORIDE 103 mmol/L (98-107); CREATININE 1.02 mg/dL (0.55-1.30); GLUCOSE 191 mg/dL (70-99); POTASSIUM 3.7 mmol/L (3.5-5.1); UREA NITROGEN, BLOOD 21 mg/dL (8-21)
[2022-06-12] MEDS: FERROUS GLUCONATE 324 MG TABLET PO SCH (09:00)
[2022-06-12] MEDS: CRANBERRY FRUIT PO SCH (09:00)
[2022-06-12] MEDS: DICLOFENAC SODIUM 1% GEL TP SCH ×2 (09:00→21:00)
[2022-06-12] MEDS: DOCUSATE SODIUM 100 MG CAPSULE PO SCH (09:00)
[2022-06-12] MEDS: MEGESTROL ACETATE 400 MG/10 ML UDC PO SCH (09:43)
[2022-06-12] MEDS: MULTIVITAMINS TAB 1 TABLET PO SCH (09:44)
[2022-06-12] MEDS: DILTIAZEM HCL 60 MG TABLET PO SCH ×3 (09:44→21:00)
[2022-06-12] MEDS: METOPROLOL TARTRATE 25 MG TABLET PO SCH (09:44)
[2022-06-12] MEDS: ASCORBIC ACID 500 MG TABLET PO SCH (09:44)
[2022-06-12] MEDS: CHOLECALCIFEROL (VITAMIN D3) 5,000 UNIT TABLET PO SCH (09:47)
[2022-06-12] MEDS: ASPIRIN 81 MG TAB.CHEW PO SCH (09:47)
[2022-06-12] MEDS: FOLIC ACID 1 MG TABLET PO SCH (09:47)
[2022-06-12] MEDS: PANTOPRAZOLE SODIUM 40 MG TAB PO SCH (09:47)
[2022-06-12 11:34] VITALS: BP_SYST 130
--- NOTE | 2022-06-12 12:09 | NUR ---
CRITICAL LAB: Laboratory called with critical lab value hgb 6.5. Medical record number and patient name verified. Read back of values done. Dr Simmons notified of value. New orders given at this time.
--- NOTE | 2022-06-12 12:15 | NUR ---
Discharge Planning: DCP faxed pt referral to [facility] [phone]. DCP to follow up.
[2022-06-12 15:30] VITALS: BP_SYST 114
--- NOTE | 2022-06-12 18:45 | NUR ---
CLOSING NOTE Patient in bed resting with eyes closed, no sign of distress or pain. Patient has had a poor appetite throughout the shift, only allowing a few bites of food per meal. Patient will receive 2 units of blood once the blood bank makes them available. Patient has been turned q2h throughout the shift, heels floating at all times. All needs met at this time and safety checks made. Will endorse to machinist 2nd shift nurse.
--- NOTE | 2022-06-12 19:01 | NUR ---
Nutrition F/U Admitting Diagnosis Urosepsis Reviewed Pertinent Medical/Surgical Hx Medical Record, RN Medical History Comment: per EMR: 86y female who presented to ED from [facility] c/o hypoxia and hypotension. After assessment, the patient was found with severe sepsis, UTI, dehydration, ZAIRE, anemia, and moderate protein energy malnutrition. Per nursing notes: patient is non-verbal and lethargic; patient is s/p swallow evaluation where patient was unwilling to open her mouth but drank most of her ensure ONS through a straw. -- PMHx: DM, HTN, a fib, CVA Subjective Information: RD visited patient at her bedside. Patient appeared lethargic and kept closing eyes/ falling asleep. RD unable to communicate with patient for nutrition assessment. Patient was noted to have moderate-severe muscle wasting in the facial area and moderate fat loss in orbital area. Patient also seen with BLE edema. Per RD chart review, average PO intake 24%, with patient often refusing meals. RD s/w RN who stated patient refuses to open her mouth for food or starts swatting at staff when they try to feed her. aware and has discussed placing GT with patients dtr, awaiting consent for GT placement. Per EMR, 3 x BM documented 06/12 and pt noted with soft, non-distended abdomen. Current Diet Order/Nutrition Support: Na2gm, Honey-thick, Pureed x 8 days Pertinent Medications Megace, VIT C, VIT D, MVI, Colace, SSI, MVI, Folic acid, Ferrous gluconate, Lantus, Synthroid, Lopressor, Protonix, IV Cardizem Pertinent Labs WBC 13.1 (H), RBC 2.0 (L), Hgb 6.5 (L), hct 18.5 (L), BG 105-191 (H), POC 180 (H), Ca 7.2 (L), alb 2.4 L, BUN 21/ Cre 1.02 (Improved WNL) Skin Integrity Comment: Hector 13: multiple wounds; +2 pitting edema noted 06/12 1. Anterior Sacrum - Scar, excoriation 2. LR heel Discoloration; pink with dry flaky skin 3. Coccyx - [place], healing scar Current % PO: 24% average x 9 meals = Negligible (25-49%) Estimated Energy Expenditure (kcals/day) 4240-6204 (30-35 kcal/kg IBW d/t sepsis, PEM) Estimated Protein Required (g/day) 73-109 (1.2-1.8 g/kg IBW d/t sepsis, PEM) Estimated Fluid Required (l/day) 1.8-2.1 (1mL/kcal) Problem/Etiology/Signs/Symptoms Inadequate oral intake r/t lethargy, UTI a/e/b PO average intake 25% x 10 meals (Ongoing) Expected Outcomes/Goals PO intake provides >85% estimated nutrient needs, >75% average PO at mealtimes, nutrition-related labs trending WNL, improvements in skin integrity, BM q1-3 days, Dietitian Recommendations * Continue Na2gm, HTL, puree diet * Recommend 1:1 feeding assistance at meal times * If/when GT placed, recommend Glucerna1.5 @ 55mL x 24hr + free water flushes: 250mL TID -- This provides: 1980 kcal/d, 109g pro/d, and 1752mL FW (1002 EN only) -- Equals 108% lower estimated kcal; 100% higher estimated protein, and 97% lower fluid needs Follow Up High Risk: F/U in 2-3days
--- NOTE | 2022-06-12 19:05 | NUR ---
Dietitian Recommendations * Continue Na2gm, HTL, puree diet * Recommend 1:1 feeding assistance at meal times * If/when GT placed, recommend Glucerna 1.5 @ 55mL x 24hr + free water flushes: 250mL TID Please refer to nutrition F/U for details, thanks! CC, MPH, RDN
[2022-06-12 20:15] VITALS: BP_SYST 116
--- NOTE | 2022-06-13 00:10 | NUR ---
Called Dr. Simmons and informed him that during blood transfusion the IV access blew up. Attempted to start a new IV access but could not establish a new one. MD Ordered for patient to have a MIDLINE access. Will endorse to dayshift nurse. After few minutes informing the doctor, one nurse tried to establish an IV access and it was successful. Continued the blood transfusion, patient received two units of PRBC's.
[2022-06-13] MEDS: INSULIN GLARGINE 100 UNITS/ML 10 ML VIAL SUBCUT SCH ×2 (01:40→21:42)
[2022-06-13] MEDS: INSULIN REGULAR, HUMAN 100 UNITS/ML, 10 ML VIAL (humuLIN R) SUBCUT PRN ×3 (01:41→21:43)
[2022-06-13] MEDS: 0.45% NACL 1,000 ML IV SCH ×2 (02:16→13:25)
--- NOTE | 2022-06-13 07:30 | NUR ---
OPENING NOTE Patient in bed resting with eyes closed. No sign of pain or distress. Patient is alert, and opens her eyes spontaneously and to light touch. All needs met at this time and safety checks made.
[2022-06-13 08:00] VITALS: BP_SYST 126
[2022-06-13] MEDS: LEVOTHYROXINE SODIUM 0.075 MG TABLET PO SCH (08:21)
[2022-06-13 08:38] LABS: ANION GAP 8 (5-15); CALCIUM 7.3 mg/dL (8.4-11.0); CHLORIDE 102 mmol/L (98-107); CREATININE 0.94 mg/dL (0.55-1.30); GLUCOSE 129 mg/dL (70-99); POTASSIUM 3.5 mmol/L (3.5-5.1); UREA NITROGEN, BLOOD 18 mg/dL (8-21)
[2022-06-13 08:45] LABS: BASOPHILS % (AUTO) 0.3 % (0.0-2.0); EOSINOPHILS # (AUTO) 0.4 K/uL (0.0-0.4); EOSINOPHILS % (AUTO) 3.1 % (0.0-4.0); HEMATOCRIT 25.5 % (36-48); LYMPHOCYTES # (AUTO) 2.3 K/uL (1.0-5.5); LYMPHOCYTES % (AUTO) 16.3 % (20.5-51.5); MEAN CORPUSCULAR VOLUME 91 fL (79.0-98.0); MONOCYTES % (AUTO) 6.9 % (1.7-9.3); NEUTROPHILS # (AUTO) 10.2 K/uL (1.8-7.7); NEUTROPHILS % (AUTO) 73.4 % (40.0-70.0); PLATELET COUNT (AUTO) 362 K/uL (130-430); RED BLOOD CELL COUNT(AUTO) 2.82 MIL/uL (4.2-6.2); RED CELL DISTRIBUTION WIDTH 15.9 % (9.0-15.0); WHITE BLOOD COUNT (AUTO) 13.9 K/uL (4.8-10.8)
[2022-06-13] MEDS: DOCUSATE SODIUM 100 MG CAPSULE PO SCH (09:00)
[2022-06-13] MEDS: DICLOFENAC SODIUM 1% GEL TP SCH ×2 (09:00→21:00)
[2022-06-13] MEDS: CRANBERRY FRUIT PO SCH (09:00)
[2022-06-13] MEDS: FOLIC ACID 1 MG TABLET PO SCH (09:01)
[2022-06-13] MEDS: MULTIVITAMINS TAB 1 TABLET PO SCH (09:01)
[2022-06-13] MEDS: MEGESTROL ACETATE 400 MG/10 ML UDC PO SCH (09:01)
[2022-06-13] MEDS: ASPIRIN 81 MG TAB.CHEW PO SCH (09:01)
[2022-06-13] MEDS: METOPROLOL TARTRATE 25 MG TABLET PO SCH (09:02)
[2022-06-13] MEDS: PANTOPRAZOLE SODIUM 40 MG TAB PO SCH ×3 (09:03→21:26)
[2022-06-13] MEDS: FERROUS GLUCONATE 324 MG TABLET PO SCH (09:03)
[2022-06-13] MEDS: CHOLECALCIFEROL (VITAMIN D3) 5,000 UNIT TABLET PO SCH (09:04)
[2022-06-13] MEDS: DILTIAZEM HCL 60 MG TABLET PO SCH ×3 (09:04→21:26)
[2022-06-13] MEDS: ASCORBIC ACID 500 MG TABLET PO SCH (09:04)
--- NOTE | 2022-06-13 11:00 | NUR ---
MIDLINE CONSENT Patient's daughter, Alicia Landin, returned our call and gave consent for a midline to be placed. Verbal consent taken, confirmed by 2 nurses. Consent placed in chart.
[2022-06-13 12:00] VITALS: BP_SYST 116
--- NOTE | 2022-06-13 12:02 | NUR ---
DC PLANNING Called & spoke with dtr Alicia Landin, ph [phone], states did discuss PEG with Dr Simmons Sunday but has more questions not only about PEG but on other Medical problems. Also wants Swallow eval to be done first before decides. Called & spoke with Dr Simmons, will call and speak with Dtr later today. Order for Swallow Eval.
--- NOTE | 2022-06-13 15:00 | NUR ---
MIDLINE PLACEMENT Midline placed on the right upper arm. Patient tolerated well.
--- NOTE | 2022-06-13 15:10 | NUR ---
SWALLOW EVAL Patient received a swallow evaluation. Speech therapist, Dorys, spoke with daughter Alicia on the phone after.
--- NOTE | 2022-06-13 15:22 | NUR ---
ST EVALUATION COMPLETED. ST TX NOT INDICATED AT THIS TIME. RECOMMEND PO DIET OF PUREE/THIN LIQUID. 1:1 FEEDER AND FULL ASPIRATION PRECAUTIONS. IF PT APPETITE DECLINES SHE MAY BENEFIT FROM ALTERNATIVE MEANS OF NUTRITION WITH ORAL GRATIFICATION.
[2022-06-13 16:07] VITALS: BP_SYST 136
--- NOTE | 2022-06-13 18:40 | NUR ---
CLOSING NOTE Patient in bed resting, no sign of distress or pain. Patient's appetite for dinner was improved, patient at 50% of her food and 100% of her ensure. De La Fuente catheter patent, draining hosea urine to gravity. Patient had two bowel movements this shift, both small and loose. Patient's midline is clean, dry, intact, and patient is tolerating well. All needs met at this time and safety checks made. Will endorse to manager night nurse.
[2022-06-13 21:00] VITALS: BP_SYST 120
[2022-06-14 00:43] VITALS: BP_SYST 124
[2022-06-14] MEDS: LEVOTHYROXINE SODIUM 0.075 MG TABLET PO SCH (06:59)
[2022-06-14] MEDS: INSULIN REGULAR, HUMAN 100 UNITS/ML, 10 ML VIAL (humuLIN R) SUBCUT PRN ×2 (07:02→11:47)
[2022-06-14 07:35] VITALS: BP_SYST 124
--- NOTE | 2022-06-14 07:55 | NUR ---
OPEN NOTE Patient is lying in bed comfortably a bit confused and a bit combative to taking blood pressure. No signs of any chest pain,pain,sob,or any acute distress noted. Left wrist IV patent and infusing to pump well. No s/s any infiltration noted. De La Fuente cath w/ gravity drains yellow urine output. All safety measures in place, side rails up. Patient has MRSA nares but already colonized so no need for isolation measures. All needs met at this time, will continue to monitor.
[2022-06-14] MEDS: FOLIC ACID 1 MG TABLET PO SCH (08:43)
[2022-06-14] MEDS: MULTIVITAMINS TAB 1 TABLET PO SCH (08:44)
[2022-06-14] MEDS: METOPROLOL TARTRATE 25 MG TABLET PO SCH (08:44)
[2022-06-14] MEDS: DILTIAZEM HCL 60 MG TABLET PO SCH ×2 (08:44→14:35)
[2022-06-14] MEDS: ASPIRIN 81 MG TAB.CHEW PO SCH (08:44)
[2022-06-14] MEDS: DOCUSATE SODIUM 100 MG CAPSULE PO SCH (08:45)
[2022-06-14] MEDS: ASCORBIC ACID 500 MG TABLET PO SCH (08:45)
[2022-06-14] MEDS: FERROUS GLUCONATE 324 MG TABLET PO SCH (08:45)
[2022-06-14] MEDS: PANTOPRAZOLE SODIUM 40 MG TAB PO SCH (08:45)
[2022-06-14] MEDS: CHOLECALCIFEROL (VITAMIN D3) 5,000 UNIT TABLET PO SCH (08:45)
[2022-06-14] MEDS: MEGESTROL ACETATE 400 MG/10 ML UDC PO SCH (08:45)
[2022-06-14] MEDS: CRANBERRY FRUIT PO SCH (09:00)
[2022-06-14] MEDS: DICLOFENAC SODIUM 1% GEL TP SCH (09:00)
[2022-06-14 12:00] VITALS: BP_SYST 122
--- NOTE | 2022-06-14 12:00 | NUR ---
Patient Rounds Patient is lying in bed comfortably No signs of any chest pain,pain,sob,or any acute distress noted. De La Fuente cath w/ gravity drains yellow urine output. All safety measures in place, side rails up. bed is locked in lowest position. All needs met at this time, will continue to monitor.
--- NOTE | 2022-06-14 13:00 | NUR ---
Discharged De La Fuente Discharged De La Fuente Catheter. Patient had voided 400ml. Will monitor for urine output. MD Simmons at bedside.
--- NOTE | 2022-06-14 13:25 | NUR ---
Discharge Planning: DCP followed up with pt referral to [facility] [phone] 1C, transport arranged with [facility] [phone] 3:30pm BLS. DCP made CM aware and patient packet taken to nurse station. DCP confirmed with [facility] patient bed.
--- NOTE | 2022-06-14 14:00 | NUR ---
Report to [facility] Report given to BOOGIE Leary regarding patient's care. Patient will be under Doctor Troy's care at [facility]. Daughter Phuong also aware that transport will be at aprox 1530 today.
[2022-06-14 14:05] VITALS: BP_SYST 122
--- NOTE | 2022-06-14 15:55 | NUR ---
D/C Patient Patient given medication reconciliation form and D/C instructions. Exit Care provided. Report given to BOOGIE Leary at [facility]. Patient in stable condition, ID band removed. IV catheter to L wrist removed, intact and dressing applied, no active bleeding. Medication list and forms in packet. No pain, NO SOB, no distress noted at this time. All belongings sent with patient.
[2022-06-14 16:05] VITALS: BP_SYST 123
== END 2022-06-14 17:28 | DRG 871 ==
LOC: SED 09:51 → STU 12:38
PROVIDERS: ADMIT Family Medicine; ATTEND Family Medicine
PROC: 30233N1 Transfusion of Nonautologous Red Blood Cells into Peripheral Vein, Percutaneous Approach (ICD-10-PCS; principal; 2022-06-12)
PROC: 05HY33Z Insertion of Infusion Device into Upper Vein, Percutaneous Approach (ICD-10-PCS; 2022-06-12)
DX: A41.9 Sepsis, unspecified organism (principal); N17.0 Acute kidney failure with tubular necrosis; E44.0 Moderate protein-calorie malnutrition; N39.0 Urinary tract infection, site not specified; R65.20 Severe sepsis without septic shock; I48.0 Paroxysmal atrial fibrillation; E86.0 Dehydration; D64.9 Anemia, unspecified; Z20.822 Contact with and (suspected) exposure to COVID-19; E11.9 Type 2 diabetes mellitus without complications; I10 Essential (primary) hypertension; R09.02 Hypoxemia; Z86.73 Personal history of transient ischemic attack (TIA), and cerebral infarction without residual deficits; Z68.25 Body mass index [BMI] 25.0-25.9, adult
CPT/HCPCS: 36415; 70450-TC; 71045; 76376; 80048; 80053; 81000; 82607; 82728; 82746; 82962; 83540; 83550; 83605; 83735; 84484; 85007; 85025; 85027; 85379; 85610-TC; 85730-TC; 86870; 86886; 86900; 86901; 86920; 87040; 87081; 87086; 92610-GN; 93005; 96374; 96375; 99285; G0378; J0610; J1815; J2185; J2543; J3370; J3480; J3490; J7050; P9021

== ENCOUNTER 2022-11-22 13:58 | Emergency (ER) | payer OTHER, MEDICAID ==
[~2022-11-22] VITALS: Ht 167.6 cm; Wt 90.7 kg
[~2022-11-22 13:58] MED LIST: ACET325C6 PO; AMIN30LI2 PO; ASCO500T19 PO; ASPI-524 PO; CHOL500052 PO; CRAN450C PO; DICL100G19 TP; DILT60CA PO; DOCU-144 PO; FERR324T22 PO; FOLI-43 PO; HYDR-4038 PO; INSU100V9 SUBCUT; LEVO75CA5 PO; MEGE400O5 PO; METO25TA6 PO; MULT-1089 PO; OMEP-268 PO
[2022-11-22 14:12] VITALS: BP_SYST 136
--- NOTE | 2022-11-22 14:16 | NUR ---
Patient to ER bed 06 to gown for evaluation. Side rails up. Report given to Analy HYMAN .
--- NOTE | 2022-11-22 14:19 | NUR ---
SENT IN BY DR CHILDS FOR ACCIDENTAL GTUBE REMOVAL. RÍOS IN PLACE, DR ASKEW TO SEE PT.
--- NOTE | 2022-11-22 14:29 | NUR ---
DR ASKEW IN ROOM FOR EXAM
--- NOTE | 2022-11-22 14:48 | NUR ---
MRSA AND COVID SWABBED BY EMT AND SENT TO LAB
[2022-11-22] MEDS ORDERED: GASTROGRAFIN 120 ML ONE (15:30)
--- NOTE | 2022-11-22 17:17 | NUR ---
NO ACUTE CHNAGES IN CONDITION, PT IN NAD. RESP EVEN AND UNLABORE,D ON RA @97%.
[2022-11-22 20:20] VITALS: BP_SYST 130
--- NOTE | 2022-11-22 20:22 | NUR ---
Patient given written and verbal discharge instructions to return with to [facility]. Patient in stable condition. ID arm band removed. Spoke to Glo at [facility] and notified facility of pt returning back. Opportunity for questions provided and answered.
== END 2022-11-22 20:18 ==
LOC: SED 13:58
DX: Z43.1 Encounter for attention to gastrostomy (principal); E11.9 Type 2 diabetes mellitus without complications; K21.9 Gastro-esophageal reflux disease without esophagitis; I10 Essential (primary) hypertension; Z79.4 Long term (current) use of insulin; Z79.899 Other long term (current) drug therapy; Z20.822 Contact with and (suspected) exposure to COVID-19
CPT/HCPCS: 99284; 43762; 87426; 87081; 36415; 74240; Q9963

== ENCOUNTER 2022-12-11 15:54 | Inpatient (IN) | payer OTHER, MEDICAID ==
[~2022-12-11] VITALS: Ht 132.1 cm; Wt 76.7 kg
[~2022-12-11 15:54] MED LIST changes: +ASCO500T19 GT; -ASCO500T19 PO; +CHOL500052 GT; -CHOL500052 PO; +DOCU-144 GT; -DOCU-144 PO; +FERR324T22 GT; -FERR324T22 PO; +FOLI-43 GT; -FOLI-43 PO; +LEVO75CA5 GT; -LEVO75CA5 PO; +MULT-1089 GT; -MULT-1089 PO
[2022-12-11 16:00] VITALS: BP_SYST 170
[2022-12-11 17:25] LABS: HEMATOCRIT 23.7 % (36-48); HEMOGLOBIN 7.8 g/dL (12.0-16.0); MEAN CORPUSCULAR HEMOGLOBIN 31 pg (27-31); MEAN CORPUSCULAR HGB CONC 33 % (32-36); MEAN CORPUSCULAR VOLUME 95 fL (79.0-98.0); PLATELET COUNT (AUTO) 263 K/uL (130-430); RED BLOOD CELL COUNT(AUTO) 2.49 MIL/uL (4.2-6.2); RED CELL DISTRIBUTION WIDTH 18.5 % (9.0-15.0); WHITE BLOOD COUNT (AUTO) 5.6 K/uL (4.8-10.8)
[2022-12-11 17:37] LABS: ALANINE AMINOTRANSFERASE 99 U/L (12-78); ANION GAP 5 (5-15); ASPARTATE AMINOTRANSFERASE 62 U/L (10-37); CALCIUM 8.5 mg/dL (8.4-11.0); CHLORIDE 91 mmol/L (98-107); CREATININE 1.51 mg/dL (0.55-1.30); GLUCOSE 211 mg/dL (70-99); TOTAL BILIRUBIN 0.1 mg/dL (0.0-1.0)
[2022-12-11 17:39] LABS: BAND % (MANUAL) 3 % (0-6); BASOPHILS % (MANUAL) 0 % (0-2); EOSINOPHILS % (MANUAL) 2 % (0-7); LYMPHOCYTES % (MANUAL) 18 % (20-46); METAMYELOCYTES % 1 % (0-0); MONOCYTES % (MANUAL) 7 % (0-11); MYELOCYTES % 1 % (0-0)
[2022-12-11 17:45] LABS: UREA NITROGEN, BLOOD 105 mg/dL (8-21)
[2022-12-11 18:15] LABS: BILIRUBIN,URINE NEGATIVE (NEGATIVE); BLOOD, URINE 3+ (NEGATIVE); CLARITY/URINE SL CLOUDY (CLEAR); COLOR,URINE YELLOW (YELLOW); GLUCOSE,URINE NEGATIVE (NEGATIVE); KETONES,URINE NEGATIVE (NEGATIVE); LEUKOCYTE ESTERASE ,URINE 1+ (NEGATIVE); NITRITE, URINE NEGATIVE (NEGATIVE); PH,URINE 5.5 (5.0-8.0); PROTEIN URINE 2+ (NEGATIVE); UROBILINOGEN,URINE 0.2 (0.2-1.0)
[2022-12-11 18:23] LABS: BACTERIA,URINE MANY /HPF (None Seen); MUCUS,URINE None Seen /LPF (None Seen); RBC,URINE 80-100 /HPF (0-3); YEAST,URINE Many /HPF (None Seen)
[2022-12-11] MEDS ORDERED: MEROPENEM 1 GM IVPB PREMIX 50 ML IV ONE (19:30)
[2022-12-11] MEDS ORDERED: VANCOMYCIN HCL 1,000 MG in NS 250 ML IV ONE (19:30)
[2022-12-11] MEDS ORDERED: VANCOMYCIN HCL 1000 MG/VIAL IV ONE ×2 (22:22→22:45)
[2022-12-11] MEDS: LevALBUTEROL HCL 1.25 MG/0.5 ML *CONC.* VIAL.NEB (XOPENEX CONC.) INH SCH (23:15)
[2022-12-11] MEDS ORDERED: LevALBUTEROL HCL 1.25 MG/0.5 ML *CONC.* VIAL.NEB (XOPENEX CONC.) INH PRN (23:15)
[2022-12-11] MEDS: NACL 0.9% 1,000 ML IV SCH ×2 (23:18→23:21)
[2022-12-11 23:23] VITALS: BP_SYST 132
[2022-12-11] MEDS ORDERED: ONDANSETRON HCL 4 MG/2 ML VIAL IVP PRN (23:30)
[2022-12-12] VITALS (22 sets, daily range): BP systolic 73–158
[2022-12-12] MEDS: LevALBUTEROL HCL 1.25 MG/0.5 ML *CONC.* VIAL.NEB (XOPENEX CONC.) INH SCH ×4 (01:15→20:00)
[2022-12-12 01:54] LABS: INR 1.1 (0.8-1.2); PROTHROMBIN TIME 11.4 SECS (9.5-12.5)
[2022-12-12 06:44] LABS: ANION GAP 3 (5-15); CALCIUM 8.4 mg/dL (8.4-11.0); CHLORIDE 92 mmol/L (98-107); GLUCOSE 122 mg/dL (70-99)
[2022-12-12 06:45] LABS: ALANINE AMINOTRANSFERASE 92 U/L (12-78); ASPARTATE AMINOTRANSFERASE 52 U/L (10-37); CREATININE 1.56 mg/dL (0.55-1.30); TOTAL BILIRUBIN 0.2 mg/dL (0.0-1.0)
[2022-12-12 06:49] LABS: UREA NITROGEN, BLOOD 108 mg/dL (8-21)
[2022-12-12] MEDS ORDERED: DILT60TA3 PO (07:10)
[2022-12-12] MEDS: LEVOTHYROXINE SODIUM 0.075 MG TABLET PO SCH (07:50)
[2022-12-12 07:53] LABS: BASOPHILS % (AUTO) 0.5 % (0.0-2.0); EOSINOPHILS # (AUTO) 0.1 K/uL (0.0-0.4); EOSINOPHILS % (AUTO) 1.8 % (0.0-4.0); HEMATOCRIT 22.3 % (36-48); HEMOGLOBIN 7.3 g/dL (12.0-16.0); LYMPHOCYTES # (AUTO) 1.2 K/uL (1.0-5.5); LYMPHOCYTES % (AUTO) 21.3 % (20.5-51.5); MEAN CORPUSCULAR HEMOGLOBIN 31 pg (27-31); MEAN CORPUSCULAR HGB CONC 33 % (32-36); MEAN CORPUSCULAR VOLUME 95 fL (79.0-98.0); MONOCYTES # (AUTO) 0.6 K/uL (0.0-1.0); MONOCYTES % (AUTO) 10.3 % (1.7-9.3); NEUTROPHILS # (AUTO) 3.7 K/uL (1.8-7.7); PLATELET COUNT (AUTO) 255 K/uL (130-430); RED BLOOD CELL COUNT(AUTO) 2.36 MIL/uL (4.2-6.2); RED CELL DISTRIBUTION WIDTH 18.3 % (9.0-15.0); WHITE BLOOD COUNT (AUTO) 5.7 K/uL (4.8-10.8)
[2022-12-12] MEDS: ASPIRIN 81 MG TAB.CHEW PO SCH (08:34)
[2022-12-12] MEDS: PANTOPRAZOLE SODIUM 40 MG TAB PO SCH ×2 (08:34→21:21)
[2022-12-12] MEDS: FOLIC ACID 1 MG TABLET PO SCH (08:34)
[2022-12-12] MEDS: ASCORBIC ACID 500 MG TABLET PO SCH (08:34)
[2022-12-12] MEDS: CHOLECALCIFEROL (VITAMIN D3) 5,000 UNIT TABLET PO SCH (08:34)
[2022-12-12] MEDS: MULTIVITAMINS TAB 1 TABLET PO SCH (08:34)
[2022-12-12] MEDS: CEFEPIME 1 GM in D5W 50 ML IV SCH ×2 (08:40→21:21)
[2022-12-12] MEDS: ACETAMINOPHEN 325 MG TABLET PO SCH (08:40)
[2022-12-12] MEDS: hydrALAZINE HCL 25 MG TABLET PO SCH ×2 (08:40→21:21)
[2022-12-12] MEDS ORDERED: DOCUSATE SODIUM 100 MG/10 ML UDC PO ONE (08:45)
[2022-12-12] MEDS: FERROUS GLUCONATE 324 MG TABLET PO SCH (08:46)
[2022-12-12] MEDS ORDERED: CRANBERRY FRUIT PO SCH (09:00)
[2022-12-12] MEDS ORDERED: AMINO ACIDS PO SCH (09:00)
[2022-12-12] MEDS ORDERED: DICLOFENAC SODIUM 1% TP SCH (09:00)
[2022-12-12] MEDS ORDERED: DILTIAZEM HCL 60 MG TABLET PO SCH (09:00)
[2022-12-12] MEDS ORDERED: METOPROLOL TARTRATE 25 MG TABLET PO SCH (09:00)
[2022-12-12] MEDS ORDERED: DOCUSATE SODIUM 100 MG CAPSULE PO SCH (09:00)
[2022-12-12] MEDS ORDERED: NON-FORMULARY MEDICATION (Omeprazole 1 CAP) PO SCH (09:00)
[2022-12-12] MEDS ORDERED: PROTEIN HYDROLYS PO SCH (09:00)
[2022-12-12] MEDS ORDERED: NOREPINEPHRINE BITARTRATE 4 MG in NS 246 ML IV PRN (10:30)
[2022-12-12] MEDS ORDERED: NOREPINEPHRINE 4 MG/4 ML VIAL IV ONE (10:40)
[2022-12-12] MEDS: INSULIN REGULAR, HUMAN 100 UNITS/ML, 3 ML VIAL (humuLIN R) SUBCUT PRN ×3 (11:29→23:39)
[2022-12-12 12:46] LABS: NEUTROPHILS % (AUTO) 66.1 % (40.0-70.0)
[2022-12-12] MEDS ORDERED: FUROSEMIDE 20 MG/2 ML VIAL IVP ONE (13:15)
[2022-12-12] MEDS: FLUCONAZOLE 100 mg/ NS 50 ML IV SCH (13:19)
[2022-12-12] MEDS ORDERED: ALBUMIN HUMAN 25% 50 ML IV ONE (13:30)
[2022-12-12] MEDS: DOPamine PREMIX 250 ML IV PRN (13:32)
[2022-12-12 13:58] LABS: ANION GAP 6 (5-15); CALCIUM 8.2 mg/dL (8.4-11.0); CHLORIDE 92 mmol/L (98-107); GLUCOSE 156 mg/dL (70-99)
[2022-12-12] MEDS ORDERED: VANCOMYCIN HCL 1,000 MG in NS 250 ML IV SCH (14:00)
[2022-12-12 14:03] LABS: UREA NITROGEN, BLOOD 108 mg/dL (8-21)
[2022-12-12] MEDS ORDERED: SODIUM POLYSTYRENE SULFONATE 15 GM/60 ML UDBTL PO ONE (16:00)
[2022-12-12] MEDS: INSULIN GLARGINE 100 UNITS/ML, 10 ML VIAL SUBCUT SCH (21:28)
[2022-12-12 22:56] LABS: ANION GAP 7 (5-15); CALCIUM 7.9 mg/dL (8.4-11.0); CHLORIDE 93 mmol/L (98-107); CREATININE 1.72 mg/dL (0.55-1.30); GLUCOSE 210 mg/dL (70-99)
[2022-12-12 23:01] LABS: UREA NITROGEN, BLOOD 112 mg/dL (8-21)
[2022-12-13] VITALS (22 sets, daily range): BP systolic 105–157
[2022-12-13] MEDS ORDERED: SODIUM POLYSTYRENE SULFONATE 15 GM/60 ML UDBTL GT ONE
[2022-12-13] MEDS ORDERED: SODIUM POLYSTYRENE SULFONATE 15 GM/60 ML UDBTL ONE ×2 (00:28→00:31)
[2022-12-13] MEDS: LevALBUTEROL HCL 1.25 MG/0.5 ML *CONC.* VIAL.NEB (XOPENEX CONC.) INH SCH ×4 (01:22→19:45)
[2022-12-13 06:07] LABS: BASOPHILS % (AUTO) 0.4 % (0.0-2.0); EOSINOPHILS % (AUTO) 0.8 % (0.0-4.0); HEMOGLOBIN 7.8 g/dL (12.0-16.0); LYMPHOCYTES # (AUTO) 0.8 K/uL (1.0-5.5); LYMPHOCYTES % (AUTO) 14.6 % (20.5-51.5); MEAN CORPUSCULAR HEMOGLOBIN 32 pg (27-31); MEAN CORPUSCULAR HGB CONC 34 % (32-36); MEAN CORPUSCULAR VOLUME 93 fL (79.0-98.0); MONOCYTES # (AUTO) 0.6 K/uL (0.0-1.0); MONOCYTES % (AUTO) 9.6 % (1.7-9.3); NEUTROPHILS # (AUTO) 4.3 K/uL (1.8-7.7); NEUTROPHILS % (AUTO) 74.6 % (40.0-70.0); PLATELET COUNT (AUTO) 282 K/uL (130-430); RED BLOOD CELL COUNT(AUTO) 2.47 MIL/uL (4.2-6.2); RED CELL DISTRIBUTION WIDTH 18.3 % (9.0-15.0); WHITE BLOOD COUNT (AUTO) 5.8 K/uL (4.8-10.8)
[2022-12-13 06:23] LABS: ALANINE AMINOTRANSFERASE 90 U/L (12-78); ALBUMIN 2.3 g/dL (3.4-4.8); ANION GAP 8 (5-15); ASPARTATE AMINOTRANSFERASE 58 U/L (10-37); CHLORIDE 95 mmol/L (98-107); CREATININE 1.64 mg/dL (0.55-1.30); GLUCOSE 135 mg/dL (70-99); TOTAL BILIRUBIN 0.3 mg/dL (0.0-1.0)
[2022-12-13 06:28] LABS: UREA NITROGEN, BLOOD 110 mg/dL (8-21)
[2022-12-13] MEDS: LEVOTHYROXINE SODIUM 0.075 MG TABLET PO SCH (06:45)
[2022-12-13] MEDS: CEFEPIME 1 GM in D5W 50 ML IV SCH ×2 (09:17→21:12)
[2022-12-13] MEDS: FERROUS GLUCONATE 324 MG TABLET PO SCH (09:18)
[2022-12-13] MEDS: ACETAMINOPHEN 325 MG TABLET PO SCH (09:19)
[2022-12-13] MEDS: DOCUSATE SODIUM 100 MG/10 ML UDC PO SCH (09:19)
[2022-12-13] MEDS: ASPIRIN 81 MG TAB.CHEW PO SCH (09:19)
[2022-12-13] MEDS: FOLIC ACID 1 MG TABLET PO SCH (09:21)
[2022-12-13] MEDS: MULTIVITAMINS TAB 1 TABLET PO SCH (09:21)
[2022-12-13] MEDS: hydrALAZINE HCL 25 MG TABLET PO SCH (09:22)
[2022-12-13] MEDS: CHOLECALCIFEROL (VITAMIN D3) 5,000 UNIT TABLET PO SCH (09:23)
[2022-12-13] MEDS: PANTOPRAZOLE SODIUM 40 MG TAB PO SCH ×2 (09:23→21:13)
[2022-12-13] MEDS: ASCORBIC ACID 500 MG TABLET PO SCH (09:24)
[2022-12-13] MEDS: NACL 0.9% 1,000 ML IV SCH (09:25)
[2022-12-13] MEDS: DOPamine PREMIX 250 ML IV PRN (12:19)
[2022-12-13] MEDS: FLUCONAZOLE 100 mg/ NS 50 ML IV SCH (12:24)
[2022-12-13] MEDS ORDERED: DOPamine PREMIX 250 ML IV PRN (16:12)
[2022-12-13] MEDS: INSULIN GLARGINE 100 UNITS/ML, 10 ML VIAL SUBCUT SCH (21:17)
[2022-12-14] VITALS (24 sets, daily range): BP systolic 93–149
[2022-12-14] MEDS: LevALBUTEROL HCL 1.25 MG/0.5 ML *CONC.* VIAL.NEB (XOPENEX CONC.) INH SCH ×4 (01:05→19:28)
[2022-12-14 05:45] LABS: TOTAL IRON BIND. CAPACITY 216 ug/dL (250-450)
[2022-12-14 06:21] LABS: BASOPHILS % (AUTO) 0.5 % (0.0-2.0); EOSINOPHILS % (AUTO) 0.3 % (0.0-4.0); LYMPHOCYTES # (AUTO) 0.6 K/uL (1.0-5.5); LYMPHOCYTES % (AUTO) 8.2 % (20.5-51.5); MEAN CORPUSCULAR HEMOGLOBIN 32 pg (27-31); MEAN CORPUSCULAR HGB CONC 34 % (32-36); MEAN CORPUSCULAR VOLUME 93 fL (79.0-98.0); MONOCYTES # (AUTO) 0.6 K/uL (0.0-1.0); MONOCYTES % (AUTO) 8.2 % (1.7-9.3); NEUTROPHILS # (AUTO) 6.5 K/uL (1.8-7.7); NEUTROPHILS % (AUTO) 82.8 % (40.0-70.0); PLATELET COUNT (AUTO) 253 K/uL (130-430); RED BLOOD CELL COUNT(AUTO) 2.21 MIL/uL (4.2-6.2); RED CELL DISTRIBUTION WIDTH 18.6 % (9.0-15.0); WHITE BLOOD COUNT (AUTO) 7.8 K/uL (4.8-10.8)
[2022-12-14 06:31] LABS: ALANINE AMINOTRANSFERASE 77 U/L (12-78); ALBUMIN 2.1 g/dL (3.4-4.8); ANION GAP 7 (5-15); ASPARTATE AMINOTRANSFERASE 51 U/L (10-37); CALCIUM 7.6 mg/dL (8.4-11.0); CHLORIDE 97 mmol/L (98-107); CREATININE 1.64 mg/dL (0.55-1.30); GLUCOSE 99 mg/dL (70-99); TOTAL BILIRUBIN 0.3 mg/dL (0.0-1.0); UREA NITROGEN, BLOOD 100 mg/dL (8-21)
[2022-12-14] MEDS: LEVOTHYROXINE SODIUM 0.075 MG TABLET PO SCH (06:48)
[2022-12-14 08:12] LABS: HEMATOCRIT 20.5 % (36-48)
[2022-12-14] MEDS: DOCUSATE SODIUM 100 MG/10 ML UDC PO SCH (08:37)
[2022-12-14] MEDS: CHOLECALCIFEROL (VITAMIN D3) 5,000 UNIT TABLET PO SCH (08:38)
[2022-12-14] MEDS: ACETAMINOPHEN 325 MG TABLET PO SCH (08:38)
[2022-12-14] MEDS: MULTIVITAMINS TAB 1 TABLET PO SCH (08:38)
[2022-12-14] MEDS: ASPIRIN 81 MG TAB.CHEW PO SCH (08:38)
[2022-12-14] MEDS: FOLIC ACID 1 MG TABLET PO SCH (08:38)
[2022-12-14] MEDS: ASCORBIC ACID 500 MG TABLET PO SCH (08:38)
[2022-12-14] MEDS: PANTOPRAZOLE SODIUM 40 MG TAB PO SCH ×2 (08:38→21:12)
[2022-12-14] MEDS: FERROUS GLUCONATE 324 MG TABLET PO SCH (08:40)
[2022-12-14] MEDS: CEFEPIME 1 GM in D5W 50 ML IV SCH ×2 (08:41→21:12)
[2022-12-14] MEDS: FLUCONAZOLE 100 mg/ NS 50 ML IV SCH (08:42)
[2022-12-14] MEDS: NACL 0.9% 1,000 ML IV SCH (09:54)
[2022-12-14] MEDS ORDERED: MENTHOL/ZINC OXIDE 113 GM OINT. TP PRN (17:45)
[2022-12-14] MEDS: INSULIN REGULAR, HUMAN 100 UNITS/ML, 3 ML VIAL (humuLIN R) SUBCUT PRN ×2 (18:24→23:39)
[2022-12-14] MEDS: FUROSEMIDE 20 MG/2 ML VIAL IVP SCH (21:12)
[2022-12-14] MEDS: INSULIN GLARGINE 100 UNITS/ML, 10 ML VIAL SUBCUT SCH (21:16)
[2022-12-15] VITALS (19 sets, daily range): BP systolic 110–141
[2022-12-15] MEDS: LevALBUTEROL HCL 1.25 MG/0.5 ML *CONC.* VIAL.NEB (XOPENEX CONC.) INH SCH ×4 (01:26→19:54)
[2022-12-15 05:39] LABS: BASOPHILS % (AUTO) 0.5 % (0.0-2.0); EOSINOPHILS % (AUTO) 0.7 % (0.0-4.0); HEMATOCRIT 27.1 % (36-48); HEMOGLOBIN 9.2 g/dL (12.0-16.0); LYMPHOCYTES # (AUTO) 0.8 K/uL (1.0-5.5); LYMPHOCYTES % (AUTO) 13.3 % (20.5-51.5); MEAN CORPUSCULAR HEMOGLOBIN 31 pg (27-31); MEAN CORPUSCULAR HGB CONC 34 % (32-36); MEAN CORPUSCULAR VOLUME 91 fL (79.0-98.0); MONOCYTES # (AUTO) 0.9 K/uL (0.0-1.0); MONOCYTES % (AUTO) 14.6 % (1.7-9.3); NEUTROPHILS # (AUTO) 4.2 K/uL (1.8-7.7); NEUTROPHILS % (AUTO) 70.9 % (40.0-70.0); PLATELET COUNT (AUTO) 202 K/uL (130-430); RED BLOOD CELL COUNT(AUTO) 2.98 MIL/uL (4.2-6.2); RED CELL DISTRIBUTION WIDTH 17.3 % (9.0-15.0); WHITE BLOOD COUNT (AUTO) 5.9 K/uL (4.8-10.8)
[2022-12-15 06:04] LABS: ALANINE AMINOTRANSFERASE 69 U/L (12-78); ALBUMIN 2.1 g/dL (3.4-4.8); ANION GAP 7 (5-15); ASPARTATE AMINOTRANSFERASE 50 U/L (10-37); CALCIUM 7.5 mg/dL (8.4-11.0); CHLORIDE 99 mmol/L (98-107); CREATININE 1.69 mg/dL (0.55-1.30); GLUCOSE 131 mg/dL (70-99); TOTAL BILIRUBIN 0.5 mg/dL (0.0-1.0)
[2022-12-15 06:14] LABS: UREA NITROGEN, BLOOD 105 mg/dL (8-21)
[2022-12-15] MEDS: LEVOTHYROXINE SODIUM 0.075 MG TABLET PO SCH (06:16)
[2022-12-15 08:06] LABS: FERRITIN 724 ng/mL (15-150)
[2022-12-15] MEDS: CEFEPIME 1 GM in D5W 50 ML IV SCH ×2 (08:52→21:57)
[2022-12-15] MEDS: ACETAMINOPHEN 325 MG TABLET PO SCH (08:53)
[2022-12-15] MEDS: ASCORBIC ACID 500 MG TABLET PO SCH (08:53)
[2022-12-15] MEDS: CHOLECALCIFEROL (VITAMIN D3) 5,000 UNIT TABLET PO SCH (08:53)
[2022-12-15] MEDS: DOCUSATE SODIUM 100 MG/10 ML UDC PO SCH (08:53)
[2022-12-15] MEDS: ASPIRIN 81 MG TAB.CHEW PO SCH (08:53)
[2022-12-15] MEDS: PANTOPRAZOLE SODIUM 40 MG TAB PO SCH ×2 (08:53→21:43)
[2022-12-15] MEDS: FOLIC ACID 1 MG TABLET PO SCH (08:53)
[2022-12-15] MEDS: FUROSEMIDE 20 MG/2 ML VIAL IVP SCH ×2 (08:54→21:44)
[2022-12-15] MEDS: MULTIVITAMINS TAB 1 TABLET PO SCH (08:58)
[2022-12-15] MEDS: FERROUS GLUCONATE 324 MG TABLET PO SCH (08:58)
[2022-12-15] MEDS: NACL 0.9% 1,000 ML IV SCH ×2 (08:59→22:01)
[2022-12-15 12:06] LABS: FOLATE (FOLIC ACID) >20.0 ng/mL (>3.0)
[2022-12-15] MEDS: FLUCONAZOLE 100 mg/ NS 50 ML IV SCH (12:14)
[2022-12-15] MEDS: SOD FERRIC GLUC COMPLEX/SUC 125 MG in NS 100 ML IV SCH (17:20)
[2022-12-15] MEDS: INSULIN REGULAR, HUMAN 100 UNITS/ML, 3 ML VIAL (humuLIN R) SUBCUT PRN (17:51)
[2022-12-15] MEDS: INSULIN GLARGINE 100 UNITS/ML, 10 ML VIAL SUBCUT SCH (21:51)
[2022-12-16] VITALS: BP_SYST 126
[2022-12-16] MEDS: LevALBUTEROL HCL 1.25 MG/0.5 ML *CONC.* VIAL.NEB (XOPENEX CONC.) INH SCH ×4 (00:51→20:17)
[2022-12-16 04:00] VITALS: BP_SYST 127
[2022-12-16 07:42] LABS: BASOPHILS % (AUTO) 0.7 % (0.0-2.0); EOSINOPHILS # (AUTO) 0.1 K/uL (0.0-0.4); EOSINOPHILS % (AUTO) 1.5 % (0.0-4.0); HEMATOCRIT 28.7 % (36-48); HEMOGLOBIN 9.7 g/dL (12.0-16.0); LYMPHOCYTES # (AUTO) 0.7 K/uL (1.0-5.5); LYMPHOCYTES % (AUTO) 13.1 % (20.5-51.5); MEAN CORPUSCULAR HEMOGLOBIN 31 pg (27-31); MEAN CORPUSCULAR HGB CONC 34 % (32-36); MEAN CORPUSCULAR VOLUME 92 fL (79.0-98.0); MONOCYTES # (AUTO) 0.8 K/uL (0.0-1.0); NEUTROPHILS # (AUTO) 3.6 K/uL (1.8-7.7); NEUTROPHILS % (AUTO) 69.7 % (40.0-70.0); PLATELET COUNT (AUTO) 195 K/uL (130-430); RED BLOOD CELL COUNT(AUTO) 3.13 MIL/uL (4.2-6.2); RED CELL DISTRIBUTION WIDTH 17.7 % (9.0-15.0); WHITE BLOOD COUNT (AUTO) 5.2 K/uL (4.8-10.8)
[2022-12-16 07:48] LABS: ALANINE AMINOTRANSFERASE 59 U/L (12-78); ALBUMIN 1.9 g/dL (3.4-4.8); ANION GAP 9 (5-15); ASPARTATE AMINOTRANSFERASE 43 U/L (10-37); CALCIUM 7.4 mg/dL (8.4-11.0); CHLORIDE 98 mmol/L (98-107); CREATININE 1.71 mg/dL (0.55-1.30); GLUCOSE 144 mg/dL (70-99); TOTAL BILIRUBIN 0.2 mg/dL (0.0-1.0); UREA NITROGEN, BLOOD 99 mg/dL (8-21)
[2022-12-16 08:00] VITALS: BP_SYST 139
[2022-12-16] MEDS: ASPIRIN 81 MG TAB.CHEW PO SCH (08:49)
[2022-12-16] MEDS: FOLIC ACID 1 MG TABLET PO SCH (08:49)
[2022-12-16] MEDS: FUROSEMIDE 20 MG/2 ML VIAL IVP SCH ×2 (08:49→21:00)
[2022-12-16] MEDS: MULTIVITAMINS TAB 1 TABLET PO SCH (08:49)
[2022-12-16] MEDS: FERROUS GLUCONATE 324 MG TABLET PO SCH (08:49)
[2022-12-16] MEDS: PANTOPRAZOLE SODIUM 40 MG TAB PO SCH ×2 (08:49→20:38)
[2022-12-16] MEDS: ASCORBIC ACID 500 MG TABLET PO SCH (08:49)
[2022-12-16] MEDS: ACETAMINOPHEN 325 MG TABLET PO SCH (08:50)
[2022-12-16] MEDS: CHOLECALCIFEROL (VITAMIN D3) 5,000 UNIT TABLET PO SCH (08:50)
[2022-12-16] MEDS: DOCUSATE SODIUM 100 MG/10 ML UDC PO SCH (08:50)
[2022-12-16] MEDS: LEVOTHYROXINE SODIUM 0.075 MG TABLET PO SCH (08:50)
[2022-12-16] MEDS: CEFEPIME 1 GM in D5W 50 ML IV SCH ×2 (08:54→21:00)
[2022-12-16] MEDS: FLUCONAZOLE 100 mg/ NS 50 ML IV SCH (11:28)
[2022-12-16 12:34] VITALS: BP_SYST 140
[2022-12-16] MEDS: SOD FERRIC GLUC COMPLEX/SUC 125 MG in NS 100 ML IV SCH (16:13)
[2022-12-16 16:45] VITALS: BP_SYST 130
[2022-12-16 20:08] VITALS: BP_SYST 129
[2022-12-16] MEDS: INSULIN GLARGINE 100 UNITS/ML, 10 ML VIAL SUBCUT SCH (20:36)
[2022-12-17 00:25] VITALS: BP_SYST 118
[2022-12-17] MEDS: LevALBUTEROL HCL 1.25 MG/0.5 ML *CONC.* VIAL.NEB (XOPENEX CONC.) INH SCH ×4 (03:18→20:01)
[2022-12-17] MEDS: LEVOTHYROXINE SODIUM 0.075 MG TABLET PO SCH (06:17)
[2022-12-17 07:45] VITALS: BP_SYST 140
[2022-12-17 08:23] VITALS: BP_SYST 118
[2022-12-17] MEDS: PANTOPRAZOLE SODIUM 40 MG TAB PO SCH ×2 (08:39→21:15)
[2022-12-17] MEDS: FOLIC ACID 1 MG TABLET PO SCH (08:39)
[2022-12-17] MEDS: DOCUSATE SODIUM 100 MG/10 ML UDC PO SCH (08:39)
[2022-12-17] MEDS: CHOLECALCIFEROL (VITAMIN D3) 5,000 UNIT TABLET PO SCH (08:40)
[2022-12-17] MEDS: ASPIRIN 81 MG TAB.CHEW PO SCH (08:40)
[2022-12-17] MEDS: ACETAMINOPHEN 325 MG TABLET PO SCH (08:41)
[2022-12-17] MEDS: ASCORBIC ACID 500 MG TABLET PO SCH (08:41)
[2022-12-17] MEDS: MULTIVITAMINS TAB 1 TABLET PO SCH (08:42)
[2022-12-17] MEDS: FUROSEMIDE 20 MG/2 ML VIAL IVP SCH ×2 (08:43→23:11)
[2022-12-17 08:44] LABS: BASOPHILS % (AUTO) 0.4 % (0.0-2.0); EOSINOPHILS # (AUTO) 0.1 K/uL (0.0-0.4); EOSINOPHILS % (AUTO) 0.8 % (0.0-4.0); HEMOGLOBIN 9.5 g/dL (12.0-16.0); LYMPHOCYTES # (AUTO) 0.5 K/uL (1.0-5.5); LYMPHOCYTES % (AUTO) 6.4 % (20.5-51.5); MEAN CORPUSCULAR HEMOGLOBIN 32 pg (27-31); MEAN CORPUSCULAR HGB CONC 34 % (32-36); MEAN CORPUSCULAR VOLUME 93 fL (79.0-98.0); MONOCYTES # (AUTO) 0.9 K/uL (0.0-1.0); MONOCYTES % (AUTO) 11.5 % (1.7-9.3); NEUTROPHILS # (AUTO) 6.1 K/uL (1.8-7.7); NEUTROPHILS % (AUTO) 80.9 % (40.0-70.0); PLATELET COUNT (AUTO) 195 K/uL (130-430); RED BLOOD CELL COUNT(AUTO) 3.01 MIL/uL (4.2-6.2); RED CELL DISTRIBUTION WIDTH 17.9 % (9.0-15.0)
[2022-12-17] MEDS: NACL 0.9% 1,000 ML IV SCH (08:45)
[2022-12-17] MEDS: FERROUS GLUCONATE 324 MG TABLET PO SCH (08:49)
[2022-12-17 08:57] LABS: WHITE BLOOD COUNT (AUTO) 7.6 K/uL (4.8-10.8)
[2022-12-17 09:00] LABS: ALANINE AMINOTRANSFERASE 53 U/L (12-78); ANION GAP 7 (5-15); ASPARTATE AMINOTRANSFERASE 35 U/L (10-37); CALCIUM 7.3 mg/dL (8.4-11.0); CHLORIDE 100 mmol/L (98-107); CREATININE 1.69 mg/dL (0.55-1.30); GLUCOSE 136 mg/dL (70-99); TOTAL BILIRUBIN 0.3 mg/dL (0.0-1.0); UREA NITROGEN, BLOOD 94 mg/dL (8-21)
[2022-12-17 11:23] VITALS: BP_SYST 110
[2022-12-17] MEDS: CEFEPIME 1 GM in D5W 50 ML IV SCH ×2 (12:51→23:10)
[2022-12-17] MEDS: FLUCONAZOLE 100 mg/ NS 50 ML IV SCH (13:06)
[2022-12-17 16:19] VITALS: BP_SYST 114
[2022-12-17] MEDS: SOD FERRIC GLUC COMPLEX/SUC 125 MG in NS 100 ML IV SCH (17:06)
[2022-12-17 20:00] VITALS: BP_SYST 123
[2022-12-17] MEDS: INSULIN GLARGINE 100 UNITS/ML, 10 ML VIAL SUBCUT SCH (21:09)
[2022-12-18] MEDS: LevALBUTEROL HCL 1.25 MG/0.5 ML *CONC.* VIAL.NEB (XOPENEX CONC.) INH SCH ×4 (01:13→19:48)
[2022-12-18 04:26] VITALS: BP_SYST 140
[2022-12-18] MEDS: LEVOTHYROXINE SODIUM 0.075 MG TABLET PO SCH (06:18)
[2022-12-18 07:25] LABS: BASOPHILS % (AUTO) 0.4 % (0.0-2.0); EOSINOPHILS # (AUTO) 0.1 K/uL (0.0-0.4); HEMATOCRIT 26.5 % (36-48); HEMOGLOBIN 8.7 g/dL (12.0-16.0); LYMPHOCYTES # (AUTO) 0.7 K/uL (1.0-5.5); LYMPHOCYTES % (AUTO) 9.9 % (20.5-51.5); MEAN CORPUSCULAR HEMOGLOBIN 31 pg (27-31); MEAN CORPUSCULAR HGB CONC 33 % (32-36); MEAN CORPUSCULAR VOLUME 94 fL (79.0-98.0); MONOCYTES # (AUTO) 0.9 K/uL (0.0-1.0); MONOCYTES % (AUTO) 12.5 % (1.7-9.3); NEUTROPHILS # (AUTO) 5.3 K/uL (1.8-7.7); NEUTROPHILS % (AUTO) 76.2 % (40.0-70.0); PLATELET COUNT (AUTO) 181 K/uL (130-430); RED BLOOD CELL COUNT(AUTO) 2.81 MIL/uL (4.2-6.2); RED CELL DISTRIBUTION WIDTH 17.5 % (9.0-15.0); WHITE BLOOD COUNT (AUTO) 6.9 K/uL (4.8-10.8)
[2022-12-18 08:00] VITALS: BP_SYST 132
[2022-12-18 08:07] LABS: ANION GAP 7 (5-15); CALCIUM 7.2 mg/dL (8.4-11.0); CHLORIDE 101 mmol/L (98-107); CREATININE 1.69 mg/dL (0.55-1.30); GLUCOSE 144 mg/dL (70-99); UREA NITROGEN, BLOOD 87 mg/dL (8-21)
[2022-12-18] MEDS: DOCUSATE SODIUM 100 MG/10 ML UDC PO SCH (10:05)
[2022-12-18] MEDS: ASPIRIN 81 MG TAB.CHEW PO SCH (10:05)
[2022-12-18] MEDS: FUROSEMIDE 20 MG/2 ML VIAL IVP SCH ×2 (10:06→21:41)
[2022-12-18] MEDS: CHOLECALCIFEROL (VITAMIN D3) 5,000 UNIT TABLET PO SCH (10:06)
[2022-12-18] MEDS: ACETAMINOPHEN 325 MG TABLET PO SCH (10:07)
[2022-12-18] MEDS: MULTIVITAMINS TAB 1 TABLET PO SCH (10:07)
[2022-12-18] MEDS: PANTOPRAZOLE SODIUM 40 MG TAB PO SCH ×2 (10:07→21:41)
[2022-12-18] MEDS: ASCORBIC ACID 500 MG TABLET PO SCH (10:08)
[2022-12-18] MEDS: FERROUS GLUCONATE 324 MG TABLET PO SCH (10:09)
[2022-12-18] MEDS: NACL 0.9% 1,000 ML IV SCH (10:09)
[2022-12-18] MEDS: FOLIC ACID 1 MG TABLET PO SCH (10:09)
[2022-12-18] MEDS: CEFEPIME 1 GM in D5W 50 ML IV SCH (10:10)
[2022-12-18 11:29] VITALS: BP_SYST 131
[2022-12-18] MEDS: FLUCONAZOLE 100 mg/ NS 50 ML IV SCH (12:04)
[2022-12-18 16:51] VITALS: BP_SYST 126
[2022-12-18] MEDS: SOD FERRIC GLUC COMPLEX/SUC 125 MG in NS 100 ML IV SCH (18:06)
[2022-12-18 20:00] VITALS: BP_SYST 144
[2022-12-18] MEDS: INSULIN GLARGINE 100 UNITS/ML, 10 ML VIAL SUBCUT SCH (21:41)
[2022-12-18] MEDS: INSULIN REGULAR, HUMAN 100 UNITS/ML, 3 ML VIAL (humuLIN R) SUBCUT PRN (23:58)
[2022-12-19] VITALS: BP_SYST 128
[2022-12-19] MEDS: LevALBUTEROL HCL 1.25 MG/0.5 ML *CONC.* VIAL.NEB (XOPENEX CONC.) INH SCH ×4 (01:26→19:49)
[2022-12-19 04:00] VITALS: BP_SYST 144
[2022-12-19] MEDS: LEVOTHYROXINE SODIUM 0.075 MG TABLET PO SCH (06:36)
[2022-12-19 08:00] VITALS: BP_SYST 145
[2022-12-19] MEDS: DOCUSATE SODIUM 100 MG/10 ML UDC PO SCH (09:00)
[2022-12-19] MEDS: ASCORBIC ACID 500 MG TABLET PO SCH (09:19)
[2022-12-19] MEDS: PANTOPRAZOLE SODIUM 40 MG TAB PO SCH ×2 (09:19→21:06)
[2022-12-19] MEDS: ASPIRIN 81 MG TAB.CHEW PO SCH (09:19)
[2022-12-19] MEDS: FOLIC ACID 1 MG TABLET PO SCH (09:19)
[2022-12-19] MEDS: ACETAMINOPHEN 325 MG TABLET PO SCH (09:19)
[2022-12-19] MEDS: FERROUS GLUCONATE 324 MG TABLET PO SCH (09:19)
[2022-12-19] MEDS: MULTIVITAMINS TAB 1 TABLET PO SCH (09:20)
[2022-12-19] MEDS: CHOLECALCIFEROL (VITAMIN D3) 5,000 UNIT TABLET PO SCH (09:20)
[2022-12-19] MEDS: FUROSEMIDE 20 MG/2 ML VIAL IVP SCH ×2 (09:20→21:06)
[2022-12-19 11:21] VITALS: BP_SYST 128
[2022-12-19] MEDS: FLUCONAZOLE 100 mg/ NS 50 ML IV SCH (12:06)
[2022-12-19 15:22] VITALS: BP_SYST 154
[2022-12-19] MEDS: SOD FERRIC GLUC COMPLEX/SUC 125 MG in NS 100 ML IV SCH (17:20)
[2022-12-19 20:00] VITALS: BP_SYST 145
[2022-12-19] MEDS: NACL 0.9% 1,000 ML IV SCH (21:00)
[2022-12-19] MEDS: INSULIN GLARGINE 100 UNITS/ML, 10 ML VIAL SUBCUT SCH (21:06)
[2022-12-20] VITALS: BP_SYST 136
[2022-12-20] MEDS: LevALBUTEROL HCL 1.25 MG/0.5 ML *CONC.* VIAL.NEB (XOPENEX CONC.) INH SCH ×3 (01:20→19:41)
[2022-12-20 04:00] VITALS: BP_SYST 146
[2022-12-20 06:27] LABS: BASOPHILS # (AUTO) 0.1 K/uL (0.0-0.2); BASOPHILS % (AUTO) 1.1 % (0.0-2.0); EOSINOPHILS # (AUTO) 0.2 K/uL (0.0-0.4); EOSINOPHILS % (AUTO) 3.4 % (0.0-4.0); HEMATOCRIT 29.4 % (36-48); HEMOGLOBIN 9.7 g/dL (12.0-16.0); LYMPHOCYTES % (AUTO) 18.8 % (20.5-51.5); MEAN CORPUSCULAR HEMOGLOBIN 31 pg (27-31); MEAN CORPUSCULAR HGB CONC 33 % (32-36); MEAN CORPUSCULAR VOLUME 95 fL (79.0-98.0); MONOCYTES # (AUTO) 0.5 K/uL (0.0-1.0); NEUTROPHILS # (AUTO) 3.5 K/uL (1.8-7.7); NEUTROPHILS % (AUTO) 66.7 % (40.0-70.0); PLATELET COUNT (AUTO) 163 K/uL (130-430); RED BLOOD CELL COUNT(AUTO) 3.09 MIL/uL (4.2-6.2); RED CELL DISTRIBUTION WIDTH 18.6 % (9.0-15.0); WHITE BLOOD COUNT (AUTO) 5.2 K/uL (4.8-10.8)
[2022-12-20] MEDS: LEVOTHYROXINE SODIUM 0.075 MG TABLET PO SCH (06:34)
[2022-12-20 06:40] LABS: ANION GAP 6 (5-15); CALCIUM 8.2 mg/dL (8.4-11.0); CHLORIDE 102 mmol/L (98-107); CREATININE 1.63 mg/dL (0.55-1.30); GLUCOSE 138 mg/dL (70-99); UREA NITROGEN, BLOOD 84 mg/dL (8-21)
[2022-12-20 08:00] VITALS: BP_SYST 143
[2022-12-20] MEDS ORDERED: SODIUM POLYSTYRENE SULFONATE 15 GM/60 ML UDBTL PO ONE (09:00)
[2022-12-20] MEDS: NACL 0.9% 1,000 ML IV SCH (09:31)
[2022-12-20] MEDS: FERROUS GLUCONATE 324 MG TABLET PO SCH (10:01)
[2022-12-20] MEDS: ASPIRIN 81 MG TAB.CHEW PO SCH (10:01)
[2022-12-20] MEDS: ACETAMINOPHEN 325 MG TABLET PO SCH (10:01)
[2022-12-20] MEDS: DOCUSATE SODIUM 100 MG/10 ML UDC PO SCH (10:01)
[2022-12-20] MEDS: PANTOPRAZOLE SODIUM 40 MG TAB PO SCH ×2 (10:02→20:20)
[2022-12-20] MEDS: FOLIC ACID 1 MG TABLET PO SCH (10:02)
[2022-12-20] MEDS: ASCORBIC ACID 500 MG TABLET PO SCH (10:02)
[2022-12-20] MEDS: MULTIVITAMINS TAB 1 TABLET PO SCH (10:02)
[2022-12-20] MEDS: CHOLECALCIFEROL (VITAMIN D3) 5,000 UNIT TABLET PO SCH (10:02)
[2022-12-20] MEDS: FUROSEMIDE 20 MG/2 ML VIAL IVP SCH ×2 (10:03→20:20)
[2022-12-20 11:29] VITALS: BP_SYST 149
[2022-12-20] MEDS: FLUCONAZOLE 100 mg/ NS 50 ML IV SCH (12:06)
[2022-12-20 15:25] VITALS: BP_SYST 164
[2022-12-20] MEDS: SOD FERRIC GLUC COMPLEX/SUC 125 MG in NS 100 ML IV SCH (18:02)
[2022-12-20] MEDS ORDERED: ANUSOL 1 EA SUPP.RECT (PREPARATION H) RC PRN (19:00)
[2022-12-20] MEDS ORDERED: ANUSOL 1 EA SUPP.RECT (PREPARATION H) RC ONE (19:00)
[2022-12-20 20:00] VITALS: BP_SYST 131
[2022-12-20] MEDS: INSULIN GLARGINE 100 UNITS/ML, 10 ML VIAL SUBCUT SCH (23:15)
[2022-12-21] MEDS: LevALBUTEROL HCL 1.25 MG/0.5 ML *CONC.* VIAL.NEB (XOPENEX CONC.) INH SCH ×4 (01:05→19:46)
[2022-12-21 02:00] VITALS: BP_SYST 125
[2022-12-21] MEDS: NACL 0.9% 1,000 ML IV SCH (03:19)
[2022-12-21 06:04] LABS: BASOPHILS % (AUTO) 0.5 % (0.0-2.0); EOSINOPHILS # (AUTO) 0.1 K/uL (0.0-0.4); EOSINOPHILS % (AUTO) 1.4 % (0.0-4.0); HEMATOCRIT 27.9 % (36-48); HEMOGLOBIN 9.1 g/dL (12.0-16.0); LYMPHOCYTES # (AUTO) 0.7 K/uL (1.0-5.5); MEAN CORPUSCULAR HEMOGLOBIN 31 pg (27-31); MEAN CORPUSCULAR HGB CONC 32 % (32-36); MEAN CORPUSCULAR VOLUME 96 fL (79.0-98.0); MONOCYTES # (AUTO) 0.6 K/uL (0.0-1.0); MONOCYTES % (AUTO) 9.8 % (1.7-9.3); NEUTROPHILS # (AUTO) 5.1 K/uL (1.8-7.7); NEUTROPHILS % (AUTO) 77.3 % (40.0-70.0); PLATELET COUNT (AUTO) 151 K/uL (130-430); RED BLOOD CELL COUNT(AUTO) 2.91 MIL/uL (4.2-6.2); RED CELL DISTRIBUTION WIDTH 19.2 % (9.0-15.0); WHITE BLOOD COUNT (AUTO) 6.6 K/uL (4.8-10.8)
[2022-12-21] MEDS: LEVOTHYROXINE SODIUM 0.075 MG TABLET PO SCH (06:17)
[2022-12-21 06:50] LABS: ALANINE AMINOTRANSFERASE 84 U/L (12-78); ANION GAP 6 (5-15); ASPARTATE AMINOTRANSFERASE 81 U/L (10-37); CALCIUM 8.2 mg/dL (8.4-11.0); CHLORIDE 103 mmol/L (98-107); CREATININE 1.68 mg/dL (0.55-1.30); GLUCOSE 131 mg/dL (70-99); TOTAL BILIRUBIN 0.3 mg/dL (0.0-1.0); UREA NITROGEN, BLOOD 79 mg/dL (8-21)
[2022-12-21] MEDS: DOCUSATE SODIUM 100 MG/10 ML UDC PO SCH (09:46)
[2022-12-21] MEDS: CHOLECALCIFEROL (VITAMIN D3) 5,000 UNIT TABLET PO SCH (09:46)
[2022-12-21] MEDS: FUROSEMIDE 20 MG/2 ML VIAL IVP SCH ×2 (09:47→21:36)
[2022-12-21] MEDS: ACETAMINOPHEN 325 MG TABLET PO SCH (09:49)
[2022-12-21] MEDS: ASPIRIN 81 MG TAB.CHEW PO SCH (09:49)
[2022-12-21] MEDS: PANTOPRAZOLE SODIUM 40 MG TAB PO SCH ×2 (09:49→21:33)
[2022-12-21] MEDS: ASCORBIC ACID 500 MG TABLET PO SCH (09:50)
[2022-12-21] MEDS: MULTIVITAMINS TAB 1 TABLET PO SCH (09:50)
[2022-12-21] MEDS: FOLIC ACID 1 MG TABLET PO SCH (09:50)
[2022-12-21 11:30] VITALS: BP_SYST 153
[2022-12-21] MEDS: FERROUS GLUCONATE 324 MG TABLET PO SCH (12:10)
[2022-12-21] MEDS: FLUCONAZOLE 100 mg/ NS 50 ML IV SCH (12:31)
[2022-12-21 16:40] VITALS: BP_SYST 120
[2022-12-21] MEDS: SOD FERRIC GLUC COMPLEX/SUC 125 MG in NS 100 ML IV SCH (18:46)
[2022-12-21 19:55] VITALS: BP_SYST 154
[2022-12-21] MEDS: ANUSOL 1 EA SUPP.RECT (PREPARATION H) RC SCH (21:36)
[2022-12-21] MEDS: INSULIN GLARGINE 100 UNITS/ML, 10 ML VIAL SUBCUT SCH (23:47)
[2022-12-22] VITALS (8 sets, daily range): BP systolic 120–144
[2022-12-22] MEDS: LevALBUTEROL HCL 1.25 MG/0.5 ML *CONC.* VIAL.NEB (XOPENEX CONC.) INH SCH ×3 (01:13→13:22)
[2022-12-22] MEDS: LEVOTHYROXINE SODIUM 0.075 MG TABLET PO SCH (06:28)
[2022-12-22] MEDS ORDERED: DEXTROSE 50% JECT 50 ML DISP.SYRIN ONE (06:43)
[2022-12-22] MEDS ORDERED: D5W 1,000 ML IV PRN (06:45)
[2022-12-22] MEDS ORDERED: DEXTROSE 50% JECT 50 ML DISP.SYRIN IVP PRN (06:45)
[2022-12-22] MEDS: ACETAMINOPHEN 325 MG TABLET PO SCH ×4 (09:00→17:25)
[2022-12-22] MEDS: FERROUS GLUCONATE 324 MG TABLET PO SCH (09:00)
[2022-12-22] MEDS: FUROSEMIDE 20 MG/2 ML VIAL IVP SCH (09:00)
[2022-12-22] MEDS: ANUSOL 1 EA SUPP.RECT (PREPARATION H) RC SCH ×2 (09:00→15:00)
[2022-12-22] MEDS: PANTOPRAZOLE SODIUM 40 MG TAB PO SCH (09:46)
[2022-12-22] MEDS: DOCUSATE SODIUM 100 MG/10 ML UDC PO SCH (09:46)
[2022-12-22] MEDS: ASCORBIC ACID 500 MG TABLET PO SCH (09:46)
[2022-12-22] MEDS: MULTIVITAMINS TAB 1 TABLET PO SCH (09:46)
[2022-12-22] MEDS: CHOLECALCIFEROL (VITAMIN D3) 5,000 UNIT TABLET PO SCH (09:47)
[2022-12-22] MEDS: FOLIC ACID 1 MG TABLET PO SCH (09:47)
[2022-12-22] MEDS: ASPIRIN 81 MG TAB.CHEW PO SCH (09:47)
[2022-12-22] MEDS: NACL 0.9% 1,000 ML IV SCH (09:48)
[2022-12-22] MEDS: FLUCONAZOLE 100 mg/ NS 50 ML IV SCH (12:00)
[2022-12-22] MEDS: SOD FERRIC GLUC COMPLEX/SUC 125 MG in NS 100 ML IV SCH (17:23)
[2022-12-23] MEDS ORDERED: LEVA0.634 INH (22:24)
[2022-12-23] MEDS ORDERED: VANC250C11 GT (22:24)
[2022-12-23] MEDS ORDERED: PRO40 GT (22:24)
[2022-12-23] MEDS ORDERED: FURO-150 GT (22:24)
[2022-12-23] MEDS ORDERED: IPRA4AER INH (22:24)
[2022-12-23] MEDS ORDERED: INSU100V7 SUBCUT (22:31)
== END 2022-12-22 21:50 | DRG 871 ==
LOC: SED 15:54 → SIC 19:27 → STU 12-15 18:49
PROVIDERS: ADMIT Family Medicine; ATTEND Family Medicine
PROC: 5A09357 Assistance with Respiratory Ventilation, Less than 24 Consecutive Hours, Continuous Positive Airway Pressure (ICD-10-PCS; 2022-12-11)
PROC: 5A09357 Assistance with Respiratory Ventilation, Less than 24 Consecutive Hours, Continuous Positive Airway Pressure (ICD-10-PCS; 2022-12-12)
PROC: 5A09357 Assistance with Respiratory Ventilation, Less than 24 Consecutive Hours, Continuous Positive Airway Pressure (ICD-10-PCS; 2022-12-13)
PROC: 30233N1 Transfusion of Nonautologous Red Blood Cells into Peripheral Vein, Percutaneous Approach (ICD-10-PCS; principal; 2022-12-14)
PROC: 5A09357 Assistance with Respiratory Ventilation, Less than 24 Consecutive Hours, Continuous Positive Airway Pressure (ICD-10-PCS; 2022-12-14)
PROC: 5A09357 Assistance with Respiratory Ventilation, Less than 24 Consecutive Hours, Continuous Positive Airway Pressure (ICD-10-PCS; 2022-12-15)
PROC: 5A09357 Assistance with Respiratory Ventilation, Less than 24 Consecutive Hours, Continuous Positive Airway Pressure (ICD-10-PCS; 2022-12-16)
PROC: 5A09357 Assistance with Respiratory Ventilation, Less than 24 Consecutive Hours, Continuous Positive Airway Pressure (ICD-10-PCS; 2022-12-17)
PROC: 5A09357 Assistance with Respiratory Ventilation, Less than 24 Consecutive Hours, Continuous Positive Airway Pressure (ICD-10-PCS; 2022-12-18)
PROC: 5A09357 Assistance with Respiratory Ventilation, Less than 24 Consecutive Hours, Continuous Positive Airway Pressure (ICD-10-PCS; 2022-12-19)
PROC: 5A09357 Assistance with Respiratory Ventilation, Less than 24 Consecutive Hours, Continuous Positive Airway Pressure (ICD-10-PCS; 2022-12-20)
PROC: 5A09357 Assistance with Respiratory Ventilation, Less than 24 Consecutive Hours, Continuous Positive Airway Pressure (ICD-10-PCS; 2022-12-21)
PROC: 5A09357 Assistance with Respiratory Ventilation, Less than 24 Consecutive Hours, Continuous Positive Airway Pressure (ICD-10-PCS; 2022-12-22)
DX: A41.9 Sepsis, unspecified organism (principal); E43 Unspecified severe protein-calorie malnutrition; J96.00 Acute respiratory failure, unspecified whether with hypoxia or hypercapnia; J69.0 Pneumonitis due to inhalation of food and vomit; G93.41 Metabolic encephalopathy; N39.0 Urinary tract infection, site not specified; Z68.41 Body mass index [BMI] 40.0-44.9, adult; E87.1 Hypo-osmolality and hyponatremia; N17.9 Acute kidney failure, unspecified; F03.90 Unspecified dementia, unspecified severity, without behavioral disturbance, psychotic disturbance, mood disturbance, and anxiety; E86.0 Dehydration; R13.10 Dysphagia, unspecified; K21.9 Gastro-esophageal reflux disease without esophagitis; E03.9 Hypothyroidism, unspecified; F41.9 Anxiety disorder, unspecified; I48.0 Paroxysmal atrial fibrillation; E66.01 Morbid (severe) obesity due to excess calories; Z66 Do not resuscitate; D50.9 Iron deficiency anemia, unspecified; R31.9 Hematuria, unspecified; Z20.822 Contact with and (suspected) exposure to COVID-19; I11.0 Hypertensive heart disease with heart failure; I50.9 Heart failure, unspecified; E11.9 Type 2 diabetes mellitus without complications; Z86.73 Personal history of transient ischemic attack (TIA), and cerebral infarction without residual deficits; Z93.1 Gastrostomy status; Z79.82 Long term (current) use of aspirin; Z79.899 Other long term (current) drug therapy
CPT/HCPCS: 36415; 36600; 71045; 76770; 80048; 80053; 81000; 82607; 82728; 82746; 82803-TC; 82962; 83540; 83550; 83605; 83735; 83880; 85007; 85025; 85027; 85610-TC; 85730-TC; 86870; 86886; 86900; 86901; 86905; 86920; 87040; 87081; 87086; 87101; 93005; 94640; 94660; 94668; 94760; 96365; 96367; 99291; G0378; J0692; J1265; J1450; J1815; J1940; J2185; J2916; J3370; J7050; J7060; J7612; P9021; P9046

== ENCOUNTER 2022-12-23 21:30 | Inpatient (IN) | payer OTHER, MEDICAID ==
[~2022-12-23] VITALS: Ht 162.6 cm; Wt 94.8 kg
[~2022-12-23 21:30] MED LIST changes: -DILT60CA PO; +DILT60TA3 PO
[2022-12-23 21:38] VITALS: BP_SYST 88
[2022-12-23] MEDS ORDERED: NACL 0.9% 1,000 ML IV ONE (22:00)
[2022-12-23] MEDS ORDERED: IPRA4AER INH (22:24)
[2022-12-23] MEDS ORDERED: VANC250C11 GT (22:24)
[2022-12-23] MEDS ORDERED: PRO40 GT (22:24)
[2022-12-23] MEDS ORDERED: LEVA0.634 INH (22:24)
[2022-12-23] MEDS ORDERED: FURO-150 GT (22:24)
[2022-12-23] MEDS ORDERED: INSU100V7 SUBCUT (22:31)
[2022-12-23 22:37] LABS: HEMOGLOBIN 9.4 g/dL (12.0-16.0); MEAN CORPUSCULAR HEMOGLOBIN 32 pg (27-31); MEAN CORPUSCULAR HGB CONC 31 % (32-36); PLATELET COUNT (AUTO) 206 K/uL (130-430)
[2022-12-23 22:41] LABS: HEMATOCRIT 30.4 % (36-48); MEAN CORPUSCULAR VOLUME 102 fL (79.0-98.0); RED BLOOD CELL COUNT(AUTO) 2.99 MIL/uL (4.2-6.2); RED CELL DISTRIBUTION WIDTH 20.2 % (9.0-15.0); WHITE BLOOD COUNT (AUTO) 11.3 K/uL (4.8-10.8)
[2022-12-23 22:57] LABS: ANION GAP 3 (5-15); BAND % (MANUAL) 14 % (0-6); BASOPHILS % (MANUAL) 0 % (0-2); CALCIUM 8.5 mg/dL (8.4-11.0); CHLORIDE 103 mmol/L (98-107); CREATININE 2.22 mg/dL (0.55-1.30); EOSINOPHILS % (MANUAL) 0 % (0-7); GLUCOSE 166 mg/dL (70-99); LYMPHOCYTES % (MANUAL) 7 % (20-46); MONOCYTES % (MANUAL) 12 % (0-11); UREA NITROGEN, BLOOD 92 mg/dL (8-21)
[2022-12-23 22:58] LABS: INR 1.4 (0.8-1.2); MYELOCYTES % 5 % (0-0); PROTHROMBIN TIME 13.8 SECS (9.5-12.5)
[2022-12-23 23:03] LABS: ACETAMINOPHEN 1 ug/mL (1-30); ALANINE AMINOTRANSFERASE 142 U/L (12-78); ALCOHOL, BLOOD 4 mg/dL (<10); ASPARTATE AMINOTRANSFERASE 145 U/L (10-37); C-REACTIVE PROTEIN QUANT 8.9 mg/dL (0-0.5); TOTAL BILIRUBIN 0.3 mg/dL (0.0-1.0)
[2022-12-23] MEDS ORDERED: ALBUTEROL SULFATE 0.083% 2.5 MG/3 ML VIAL.NEB INH ONE (23:15)
[2022-12-23] MEDS ORDERED: CALCIUM CHLORIDE 1 GM/10 ML DISP.SYRIN (14 mEq Ca++/SYR) IVP ONE (23:15)
[2022-12-23] MEDS ORDERED: FUROSEMIDE 40 MG/4 ML VIAL IVP ONE (23:15)
[2022-12-23] MEDS ORDERED: NOREPINEPHRINE BITARTRATE 4 MG in NS 246 ML IV ONE (23:30)
[2022-12-23] MEDS ORDERED: NOREPINEPHRINE 4 MG/4 ML VIAL IV ONE (23:51)
[2022-12-24] VITALS (24 sets, daily range): BP systolic 75–139
[2022-12-24] MEDS ORDERED: PIPERACILLIN/TAZO 3.375 GM in NS 50 ML IV SCH ×2
[2022-12-24 00:05] LABS: ACETONE, SERUM NEGATIVE (NEGATIVE)
[2022-12-24] MEDS ORDERED: VANCOMYCIN HCL Non-Formulary 250 MG CAPSULE GT ONE (00:15)
[2022-12-24] MEDS ORDERED: VANC250C11 GT (00:20)
[2022-12-24] MEDS ORDERED: PIPERACILLIN/TAZOBACTAM 3.375 GM/VIAL (ZOSYN) IV ONE ×3 (00:37→03:35)
[2022-12-24 01:02] LABS: BILIRUBIN,URINE NEGATIVE (NEGATIVE); BLOOD, URINE 3+ (NEGATIVE); COLOR,URINE YELLOW (YELLOW); GLUCOSE,URINE NEGATIVE (NEGATIVE); KETONES,URINE TRACE (NEGATIVE); LEUKOCYTE ESTERASE ,URINE TRACE (NEGATIVE); NITRITE, URINE NEGATIVE (NEGATIVE); PH,URINE 5.5 (5.0-8.0); PROTEIN URINE 2+ (NEGATIVE); UROBILINOGEN,URINE 0.2 (0.2-1.0)
[2022-12-24 01:12] LABS: CLARITY/URINE HAZY (CLEAR)
[2022-12-24 01:14] LABS: BARBITURATE, URINE NEGATIVE (NEG <=200); BENZODIAZEPINE, URINE NEGATIVE (NEG <=150); METHAMPHETAMINES SCREEN,URINE NEGATIVE (NEG <=500); URINE AMPHETAMINE NEGATIVE (NEG <=500); URINE METHADONE NEGATIVE (NEG <=200)
[2022-12-24 01:15] LABS: CANNABINOID, URINE NEGATIVE (NEG <=50); COCAINE, URINE NEGATIVE (NEG <=150); OPIATE, URINE NEGATIVE (NEG <=100); PHENCYCLIDINE SCREEN,URINE NEGATIVE (NEG <=25); UR TRICYCLIC ANTIDEPRESSANTS NEGATIVE (NEG <=300); URINE OXYCODONE SCREEN NEGATIVE (NEG <=100); URINE PROPOXYPHENE SCREEN NEGATIVE (NEG <=300)
[2022-12-24 01:19] LABS: BACTERIA,URINE FEW /HPF (None Seen); RBC,URINE 20-50 /HPF (0-3)
[2022-12-24 01:20] LABS: CALCIUM OXALATE CRYSTALS,UR 0-10 /HPF (None Seen); MUCUS,URINE 1+ /LPF (None Seen); YEAST,URINE Moderate /HPF (None Seen)
[2022-12-24] MEDS ORDERED: FLUCONAZOLE 100 mg/ NS 50 ML IV SCH (01:30)
[2022-12-24] MEDS ORDERED: ACETAMINOPHEN 325 MG TABLET GT PRN (01:30)
[2022-12-24] MEDS ORDERED: levalbuterol HCL 0.63 MG/3 ML VIAL.NEB INH PRN (01:30)
[2022-12-24] MEDS ORDERED: VANCOMYCIN HCL 1 GM/NS PREMIX 250 ML IV ONE (02:00)
[2022-12-24] MEDS ORDERED: ONDANSETRON HCL 4 MG/2 ML VIAL ONE (02:03)
[2022-12-24 02:07] LABS: ANION GAP 3 (5-15); CALCIUM 9.7 mg/dL (8.4-11.0); CHLORIDE 104 mmol/L (98-107); CREATININE 2.31 mg/dL (0.55-1.30); GLUCOSE 123 mg/dL (70-99); UREA NITROGEN, BLOOD 95 mg/dL (8-21)
[2022-12-24] MEDS: NOREPINEPHRINE BITARTRATE 4 MG in NS 246 ML IV SCH ×2 (03:16→08:54)
[2022-12-24] MEDS ORDERED: VANCOMYCIN HCL 1000 MG/VIAL IV ONE (03:35)
[2022-12-24] MEDS ORDERED: LANSOPRAZOLE 30 MG CAPSULE.DR ONE (03:38)
[2022-12-24] MEDS: NACL 0.9% 1,000 ML IV SCH ×2 (04:05→12:32)
[2022-12-24 05:29] LABS: HEMATOCRIT 32.1 % (36-48); HEMOGLOBIN 10.1 g/dL (12.0-16.0); MEAN CORPUSCULAR HEMOGLOBIN 31 pg (27-31); MEAN CORPUSCULAR HGB CONC 31 % (32-36); MEAN CORPUSCULAR VOLUME 100 fL (79.0-98.0); PLATELET COUNT (AUTO) 239 K/uL (130-430); RED BLOOD CELL COUNT(AUTO) 3.22 MIL/uL (4.2-6.2); RED CELL DISTRIBUTION WIDTH 19.5 % (9.0-15.0); WHITE BLOOD COUNT (AUTO) 24.1 K/uL (4.8-10.8)
[2022-12-24 05:44] LABS: ALANINE AMINOTRANSFERASE 187 U/L (12-78); ALBUMIN 2.2 g/dL (3.4-4.8); ANION GAP 5 (5-15); ASPARTATE AMINOTRANSFERASE 181 U/L (10-37); CALCIUM 9.5 mg/dL (8.4-11.0); CHLORIDE 103 mmol/L (98-107); CREATININE 2.22 mg/dL (0.55-1.30); GLUCOSE 88 mg/dL (70-99); TOTAL BILIRUBIN 0.4 mg/dL (0.0-1.0); UREA NITROGEN, BLOOD 93 mg/dL (8-21)
[2022-12-24 06:18] LABS: BAND % (MANUAL) 19 % (0-6)
[2022-12-24 06:19] LABS: BASOPHILS % (MANUAL) 0 % (0-2); EOSINOPHILS % (MANUAL) 0 % (0-7); LYMPHOCYTES % (MANUAL) 4 % (20-46); METAMYELOCYTES % 1 % (0-0); MONOCYTES % (MANUAL) 2 % (0-11)
[2022-12-24] MEDS: LANSOPRAZOLE 30 MG CAPSULE.DR GT SCH ×2 (06:38→17:40)
[2022-12-24] MEDS ORDERED: PIPERACILLIN/TAZOBACTAM 2.25 GM/ D5W 50 ML IV ONE ×2 (07:00)
[2022-12-24] MEDS ORDERED: SODIUM BICARBONATE 8.4% JECT 50 MEQ/50 ML SYRINGE IVP ONE (08:30)
[2022-12-24] MEDS ORDERED: SODIUM POLYSTYRENE SULFONATE 15 GM/60 ML UDBTL PO ONE ×2 (08:30→20:30)
[2022-12-24] MEDS ORDERED: LACTULOSE 20 GM/30 ML UDC GT ONE (08:30)
[2022-12-24] MEDS ORDERED: NOREPINEPHRINE 4 MG/4 ML VIAL IV ONE ×4 (08:39→14:06)
[2022-12-24] MEDS ORDERED: PANTOPRAZOLE GRANULES PACKET 40 MG GT SCH (09:00)
[2022-12-24] MEDS ORDERED: NOREPINEPHRINE BITARTRATE 4 MG in NS 246 ML IV PRN (09:11)
[2022-12-24] MEDS: ASPIRIN 81 MG TAB.CHEW GT SCH (09:17)
[2022-12-24] MEDS: FUROSEMIDE 20 MG TABLET GT SCH ×2 (09:18→21:01)
[2022-12-24] MEDS: FOLIC ACID 1 MG TABLET GT SCH (09:18)
[2022-12-24] MEDS: MULTIVITAMINS TAB 1 TABLET GT SCH (09:23)
[2022-12-24] MEDS: ASCORBIC ACID 500 MG TABLET GT SCH (09:23)
[2022-12-24] MEDS: FERROUS GLUCONATE 324 MG TABLET GT SCH (09:23)
[2022-12-24] MEDS ORDERED: SODIUM POLYSTYRENE SULFONATE 15 GM/60 ML UDBTL GT ONE (10:45)
[2022-12-24] MEDS: FLUCONAZOLE 100 mg/ NS 50 ML IV SCH (12:13)
[2022-12-24] MEDS: PIPERACILLIN/TAZOBACTAM 2.25 GM/ D5W 50 ML IV SCH ×4 (14:43→21:01)
[2022-12-24] MEDS ORDERED: SODIUM POLYSTYRENE SULFONATE 15 GM/60 ML UDBTL ONE (20:40)
[2022-12-25] VITALS (18 sets, daily range): BP systolic 80–142
[2022-12-25] MEDS: NACL 0.9% 1,000 ML IV SCH ×2 (03:39→08:42)
[2022-12-25] MEDS: NOREPINEPHRINE BITARTRATE 32 MG in NS 218 ML IV PRN ×2 (03:44→15:36)
[2022-12-25 06:00] LABS: INR 1.4 (0.8-1.2); PROTHROMBIN TIME 14.6 SECS (9.5-12.5)
[2022-12-25 06:07] LABS: ALANINE AMINOTRANSFERASE 150 U/L (12-78); ANION GAP 9 (5-15); ASPARTATE AMINOTRANSFERASE 120 U/L (10-37); CALCIUM 8.8 mg/dL (8.4-11.0); CHLORIDE 104 mmol/L (98-107); CREATININE 2.63 mg/dL (0.55-1.30); GLUCOSE 88 mg/dL (70-99); TOTAL BILIRUBIN 0.4 mg/dL (0.0-1.0); UREA NITROGEN, BLOOD 92 mg/dL (8-21); VANCOMYCIN,RANDOM 15.3 ug/mL
[2022-12-25] MEDS: PIPERACILLIN/TAZOBACTAM 2.25 GM/ D5W 50 ML IV SCH ×4 (06:49→14:22)
[2022-12-25] MEDS: LANSOPRAZOLE 30 MG CAPSULE.DR GT SCH ×2 (06:50→17:29)
[2022-12-25] MEDS ORDERED: LEVOTHYROXINE SODIUM 0.075 MG TABLET PO SCH (07:00)
[2022-12-25 07:41] LABS: HEMATOCRIT 28.3 % (36-48); MEAN CORPUSCULAR HEMOGLOBIN 32 pg (27-31); MEAN CORPUSCULAR HGB CONC 32 % (32-36); MEAN CORPUSCULAR VOLUME 100 fL (79.0-98.0); PLATELET COUNT (AUTO) 261 K/uL (130-430); RED BLOOD CELL COUNT(AUTO) 2.83 MIL/uL (4.2-6.2); RED CELL DISTRIBUTION WIDTH 19.3 % (9.0-15.0)
[2022-12-25] MEDS: FUROSEMIDE 20 MG TABLET GT SCH (08:29)
[2022-12-25] MEDS: ASPIRIN 81 MG TAB.CHEW GT SCH (08:49)
[2022-12-25] MEDS: MULTIVITAMINS TAB 1 TABLET GT SCH (08:50)
[2022-12-25] MEDS: FOLIC ACID 1 MG TABLET GT SCH (08:50)
[2022-12-25] MEDS: ASCORBIC ACID 500 MG TABLET GT SCH (08:50)
[2022-12-25] MEDS: FERROUS GLUCONATE 324 MG TABLET GT SCH (08:51)
[2022-12-25] MEDS ORDERED: FUROSEMIDE 20 MG/2 ML VIAL IVP SCH (09:00)
[2022-12-25 09:26] LABS: BAND % (MANUAL) 26 % (0-6); BASOPHILS % (MANUAL) 0 % (0-2); EOSINOPHILS % (MANUAL) 0 % (0-7); LYMPHOCYTES % (MANUAL) 2 % (20-46); METAMYELOCYTES % 4 % (0-0); MONOCYTES % (MANUAL) 3 % (0-11)
[2022-12-25] MEDS: FLUCONAZOLE 100 mg/ NS 50 ML IV SCH (09:28)
[2022-12-25] MEDS ORDERED: ADENOSINE 6MG/2ML VIAL ONE (11:47)
[2022-12-25] MEDS ORDERED: METOPROLOL TARTRATE 5 MG/5 ML VIAL ONE (12:27)
[2022-12-25] MEDS ORDERED: METOPROLOL TARTRATE 5 MG/5 ML VIAL IVP ONE (12:30)
[2022-12-25] MEDS ORDERED: dilTIAZem HCL IVP 5 MG/ML VIAL IVP ONE (12:30)
[2022-12-25] MEDS ORDERED: DOPamine PREMIX 250 ML IV ONE (12:43)
[2022-12-25] MEDS ORDERED: SODIUM BICARBONATE 8.4% JECT 50 MEQ/50 ML SYRINGE ONE (12:56)
[2022-12-25] MEDS ORDERED: SODIUM BICARBONATE 8.4% JECT 50 MEQ/50 ML SYRINGE IVP ONE (13:00)
[2022-12-25] MEDS ORDERED: D5NS 1,000 ML IV SCH (13:30)
[2022-12-25] MEDS ORDERED: NS 500 ML IV ONE (13:30)
[2022-12-25] MEDS ORDERED: DOPamine PREMIX 250 ML IV PRN ×2 (13:30→13:45)
[2022-12-25] MEDS ORDERED: ALBUMIN HUMAN 25% 50 ML IV SCH (13:30)
[2022-12-25] MEDS ORDERED: INSULIN REGULAR, HUMAN 100 UNITS/ML, 3 ML VIAL (humuLIN R) SUBCUT PRN (13:45)
[2022-12-25] MEDS ORDERED: ADENOSINE 6MG/2ML VIAL IVP ONE (14:00)
[2022-12-25] MEDS ORDERED: DEXTROSE 50% JECT 50 ML DISP.SYRIN ONE (17:13)
[2022-12-25] MEDS ORDERED: DEXTROSE 50% JECT 50 ML DISP.SYRIN IVP PRN (17:15)
[2022-12-25] MEDS ORDERED: D5W 1,000 ML IV PRN (17:15)
[2022-12-25] MEDS ORDERED: dilTIAZem HCL IVP 5 MG/ML VIAL IVP SCH (18:00)
[2022-12-25] MEDS ORDERED: METOPROLOL TARTRATE 5 MG/5 ML VIAL IVP SCH (18:00)
[2022-12-26] MEDS ORDERED: VANCOMYCIN HCL 1,000 MG in NS 250 ML IV SCH (08:00)
== END 2022-12-25 | disposition home or self-care (01) | DRG 871 ==
LOC: SED 21:30 → SIC 12-24
PROVIDERS: ADMIT Internal Medicine; ATTEND Internal Medicine
PROC: 5A09457 Assistance with Respiratory Ventilation, 24-96 Consecutive Hours, Continuous Positive Airway Pressure (ICD-10-PCS; principal; 2022-12-24)
PROC: 05HY33Z Insertion of Infusion Device into Upper Vein, Percutaneous Approach (ICD-10-PCS; 2022-12-24)
DX: A41.9 Sepsis, unspecified organism (principal); E43 Unspecified severe protein-calorie malnutrition; J69.0 Pneumonitis due to inhalation of food and vomit; J96.20 Acute and chronic respiratory failure, unspecified whether with hypoxia or hypercapnia; N17.9 Acute kidney failure, unspecified; I13.0 Hypertensive heart and chronic kidney disease with heart failure and stage 1 through stage 4 chronic kidney disease, or unspecified chronic kidney disease; I42.9 Cardiomyopathy, unspecified; J90 Pleural effusion, not elsewhere classified; N39.0 Urinary tract infection, site not specified; G93.40 Encephalopathy, unspecified; E03.9 Hypothyroidism, unspecified; E11.22 Type 2 diabetes mellitus with diabetic chronic kidney disease; E87.5 Hyperkalemia; I48.0 Paroxysmal atrial fibrillation; I50.9 Heart failure, unspecified; J44.9 Chronic obstructive pulmonary disease, unspecified; Z66 Do not resuscitate; N18.9 Chronic kidney disease, unspecified; Z68.35 Body mass index [BMI] 35.0-35.9, adult; Z20.822 Contact with and (suspected) exposure to COVID-19; I48.91 Unspecified atrial fibrillation; R13.10 Dysphagia, unspecified; K21.9 Gastro-esophageal reflux disease without esophagitis; F03.90 Unspecified dementia, unspecified severity, without behavioral disturbance, psychotic disturbance, mood disturbance, and anxiety; D63.1 Anemia in chronic kidney disease; I49.8 Other specified cardiac arrhythmias; Z74.01 Bed confinement status; Z87.01 Personal history of pneumonia (recurrent); Z87.440 Personal history of urinary (tract) infections; Z79.82 Long term (current) use of aspirin
CPT/HCPCS: 36415; 36600; 70450-TC; 71045; 76376; 80048; 80053; 80202; 80307; 81000; 82009; 82140; 82550; 82803-TC; 82962; 83605; 83880; 84132; 84484; 85007; 85027; 85610-TC; 85730-TC; 86140; 87040; 87081; 87086; 93005; 94640; 94660; 96365; 96375; 99291; G0480; G0481; G0482; J0153; J1265; J1450; J1815; J1940; J2405; J2543; J3370; J3490; J7050; J7060; J7613; P9046